=== PATIENT | male | born 1945 ===

== ENCOUNTER 2016-05-24 00:31 | Inpatient (IN) ==
--- NOTE | 2016-05-24 01:04 | Emergency Department Note ---
Arrival - Arrival ED Nursing Triage Note: pt to er 10 via ems coming from home with c/o from sister that he began to have unsteady gait and altered mental status tonight around 1999. Mode of Arrival: Stretcher Limitations: Altered Mental Status Source: Family - History of Present Illness Onset (ago): hour(s) (she presents 6 hours post onset of symptoms) Consistency: constant <Kamaljit Bowles - Last Filed: 05/24/16 01:01> <Michelle Navarro - Last Filed: 05/24/16 04:12> - Arrival Chief Complaint: Altered Mental Status Stated Complaint: altered mental status Time Seen by Provider: 05/24/16 00:58 - History of Present Illness HPI Narrative: This 70-year-old male presents with a history of not feeling himself this morning with a bout of nausea and vomiting after breakfast. The patient seemed to be there until this evening when he became more lethargic with an unsteady gait and transiently confused. Currently the patient is oriented to person, place, and time but is slow and methodical in answering questions. He denies headache, visual changes, focal deficits, chest pain, shortness breath, fever, or chills. Currently he is in no acute distress. ( Kamaljit Bowles) Allergies/Adverse Reactions: Allergies Allergy/AdvReac Type Severity Reaction Status Date / Time No Known Allergies Allergy Unverified 05/24/16 00:37 Review of System - Review of System 12 point system: reviewed and no additional remarkable complaints except as stated - Review of System Constitutional: Present: as per HPI Respiratory: Present: as per HPI Cardiovascular: Present: as per HPI Gastrointestinal: Present: as per HPI Neurological: Present: as per HPI <Kamaljit Bowles - Last Filed: 05/24/16 01:01> Medical,Surgical,& Family Hx - Social History Smoking Status: Never smoker Frequency of Alcohol Use: None Type of Drug Use: None <Kamaljit Bowles - Last Filed: 05/24/16 01:01> Exam <Kamaljit Bowles - Last Filed: 05/24/16 01:01> <Michelle Navarro - Last Filed: 05/24/16 04:12> Physical Examination: GENERAL: Well developed, well nourished male in no acute distress. HEENT: Normocephalic. No trauma. Moist mucous membranes. EOMI. PERRLA. ENT clear NECK: Supple. No adenopathy. CARDIAC: Regular. No murmurs. Heart rate 70 CHEST: Clear to auscultation. No respiratory distress. O2 saturation a percent ABDOMEN: Soft. Nontender. Active bowel sounds. EXTREMITIES: No trauma. Normal ROM. No pedal edema. SKIN: No diaphoresis. No rash. NEURO: Alert. Oriented 3 but lethargic. Motor, sensory, vibratory intact. No focal deficits. (Kamaljit Bowles) Vital Signs: Vital Signs Temperature 98.5 F 05/24/16 00:32 Pulse Rate 70 05/24/16 00:32 Respiratory Rate 17 05/24/16 00:32 Blood Pressure 193/79 05/24/16 00:32 O2 Sat by Pulse Oximetry 100 05/24/16 00:32 (Kamaljit Bowles) (Michelle Navarro) Course <Kamaljit Bowles - Last Filed: 05/24/16 01:01> <Michelle Navarro - Last Filed: 05/24/16 04:12> Course Narrative: spoke with DR Regalado who agrees to admission. pt may have taken too many of his sleeping pills. not comfortable sending pt home as he is a fall risk. pt admits to taking only one sleeping pill (Michelle Navarro) Results - Labs CBC & BMP: 05/24/16 01:33 05/24/16 01:33 Lab Results: I have reviewed the patients labs - Diagnostic Findings Procedure: CT: report reviewed by me (chronic ischemic changes. no acute intracranial path) <Michelle Navarro - Last Filed: 05/24/16 04:12> Disposition <Kamaljit Bowles - Last Filed: 05/24/16 01:01> Case discussed with: patient, patient's family Time of Disposition: 04:08 <Michelle Navarro - Last Filed: 05/24/16 04:12> Clinical Impression: Altered mental status, Overdose Disposition: Still a Patient Condition: Stable
--- NOTE | 2016-05-24 01:29 | EKG Report ---
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
[2016-05-24 01:58] LABS: Basophils % 0.3 % (0.0-0.8); Eosinophils % 0.3 % (0.00-10.9); Hematocrit 35.8 VOL% (42.0-52.0); Hemoglobin 11.6 GM/DL (14.0-18.0); Immature Granulocytes % 0.4 %; Immature Granulocytes Absolute 0.03 #; Lymphocytes # 0.7 10*3/uL (1.4-4.0); Mean Corpuscular HGB Conc 32.4 GM/DL (32-36); Mean Corpuscular Hemoglobin 29 PG (27-34); Mean Platelet Volume 9.6 FL (9.6-12.0); Monocytes # 0.5 10*3/uL (0.11-0.8); Monocytes % 6.6 % (1.7-12.7); Neutrophils # 6.5 10*3/uL (1.4-7.4); Neutrophils % 83.4 % (38.7-73.9); Platelet Count 151 10*3/uL (130-400); Red Blood Count 4.07 10*6/uL (3.8-5.5); Red Cell Distribution Width 13.1 % (9.3-17.3); White Blood Count 7.8 10*3/uL (4.5-13.71)
[2016-05-24 02:08] LABS: PT Patient Result 10.6 SECS; Partial Thromboplastin Time 34.6 SECS (0-40)
[2016-05-24 02:19] LABS: Barbiturates Screen,Urine Negative (Negative); Benzodiazepines Screen,Urine Negative (Negative); Cannabinoid Screen,Urine Negative (Negative); Opiate Screen,Urine Negative (Negative); Phencyclidine Screen,Urine Negative (Negative)
[2016-05-24 02:20] LABS: Albumin 2.9 G/DL (3.4-5.0); Bilirubin,Total 0.5 MG/DL (0.2-1.0); Calcium 7.9 MG/DL (8.5-10.1); Free T4 (Free Thyroxine) 1.2 NG/DL (0.76-1.46); Osmolality,Calculated 295.3 MOS/KG (273-304); Potassium 4.3 MMOL/L (3.5-5.1); Thyroid Stimulating Hormone 3.41 uIU/ml (0.358-3.74)
[2016-05-24 02:21] LABS: Apearance,Urine CLEAR (Clear); Bilirubin,Urine Negative (Negative); Blood, Urine Negative (Negative); Glucose,Urine (UA) >=500 mg/dL (Negative); Ketones,Urine Negative (Negative); Mucus,Urine Occasional /LPF (Occasional); Nitrite,Urine Negative (Negative); Protein,Urine 30 MG/DL; RBC,Urine <1 /HPF (0-4); Urine Color Straw (Yellow); Urine Specific Gravity 1.013 (1.001-1.035); Urine Urobilinogen < 2.0 EU/DL (0.2-1.0); WBC,Urine <1 /HPF (0-6)
[2016-05-24 02:25] LABS: Amylase 14 U/L (25-115); Troponin I Only < 0.015 NG/ML (0.00-0.045)
[2016-05-24] MEDS ORDERED: SODIUM CHLORIDE 0.9% 1,000 ML IV STA (03:40)
--- NOTE | 2016-05-24 06:19 | Hospitalist History & Physical ---
Assessment and Plan (1) Acute metabolic encephalopathy Status: Acute Assessment and plan: The patient will be admitted to the hospital for observation slurred speech. We will request MRI scan to rule out new stroke. Anticipated length of stay 24 hours Current Visit: Yes (2) Altered mental status Status: Acute Current Visit: Yes Qualifiers: Altered mental status type: transient alteration of awareness Qualified Code(s): R40.4 - Transient alteration of awareness History of Present Illness Chief complaint: altered mental status History of present illness: Mr. Almaraz is a 70 year old male with history of previous stroke. The patient was at home in his usual state of health. His sister noted that he had slowed sensory perceptions and that his speech was slurred. She brought him to the emergency room. The patient states that he took a sleeping pill on the evening that the symptoms developed. The patient denies headache, fever, chills, shortness of breath, angina. The patient's altered mental status with mild to moderate, continuous, and is slowly improving. Home Medications Medication Instructions Recorded Confirmed Type Clopidogrel [Plavix] 75 mg PO DAILY 05/24/16 05/24/16 History Donepezil [Aricept] 10 mg PO BEDTIME 05/24/16 05/24/16 History Gabapentin Cap/Tab [Neurontin 100 mg PO DIRECTED 05/24/16 05/24/16 History Cap/Tab] Insulin Aspart [NovoLOG FlexPen] 7 unit SUBCUT TID W/MEALS 05/24/16 05/24/16 History Insulin Detemir [Levemir FlexPen] 50 unit SUBCUT BEDTIME 05/24/16 05/24/16 History Losartan [Cozaar] 50 mg PO DAILY 05/24/16 05/24/16 History Metoprolol Tartrate 100 mg PO BEDTIME 05/24/16 05/24/16 History Pantoprazole Tab [Protonix Tab] 40 mg PO DAILY 05/24/16 05/24/16 History Saxagliptin HCl [Onglyza] 2.5 mg PO DAILY 05/24/16 05/24/16 History Tamsulosin [Flomax] 0.4 mg PO DAILY 05/24/16 05/24/16 History Tolterodine LA [Detrol LA] 2 mg PO DAILY 05/24/16 05/24/16 History Allergies Allergy/AdvReac Type Severity Reaction Status Date / Time No Known Allergies Allergy Unverified 05/24/16 00:37 Medical,Surgical,& Family Hx - Medical History Cardio: History of: Hypertension Neurology: History of: Cerebrovascular Accident - Family History Family History: Reports;: Family Diabetes, Family Hypertension - Social History Smoking Status: Never smoker Frequency of Alcohol Use: None Type of Drug Use: None Marital Status: Lives With:: Sibling Functional capacity: independent ambulation 12 point system: reviewed and no additional remarkable complaints except as stated Exam - Constitutional Exam: Constitutional System: Minimal distress. No tremulousness. Head: Normocephalic, atraumatic. Ears, Nose and Throat System: No evidence of Otitis or Mastoiditis. No epistaxis or discharge Eyes System: Pupils equal, round, and reactive. Extraocular muscles intact. Neck: Supple, without adenopathy, No jugular venous distention. No thyromegaly , neck mass, or prior surgery apparent. Respiratory System: Chest clear to auscultation. Cardiovascular System: Heart with regular rate and rhythm. No murmur. GI System: Abdomen soft, nontender. Normoactive bowel sounds present. Musculoskeletal System: limbs with no pedal edema. Full distal pulses. Neurological System: No discernable sensory deficit. No aphasia. There is some slurring of speech Psychiatric System: Conversation is slow-paced but rational Results - Labs CBC & BMP: 05/24/16 01:33 05/24/16 01:33 Lab Results: I have reviewed the past 24 hour labs
[2016-05-24] MEDS ORDERED: DEXTROSE 50% 25 GM/50 ML VIAL IV PRN (06:39)
[2016-05-24] MEDS ORDERED: ONDANSETRON 4 MG/2 ML VIAL IV PRN (06:39)
[2016-05-24] MEDS ORDERED: GLUCAGON 1 MG VIAL IM PRN (06:39)
[2016-05-24 06:49] LABS: Basophils % 0.1 % (0.0-0.8); Eosinophils % 0.1 % (0.00-10.9); Hematocrit 33.1 VOL% (42.0-52.0); Hemoglobin 10.9 GM/DL (14.0-18.0); Immature Granulocytes % 0.3 %; Immature Granulocytes Absolute 0.02 #; Lymphocytes # 0.9 10*3/uL (1.4-4.0); Lymphocytes % 12.5 % (21.2-54.2); Mean Corpuscular HGB Conc 32.9 GM/DL (32-36); Mean Corpuscular Hemoglobin 29 PG (27-34); Mean Corpuscular Volume 87.1 FL (87-102); Mean Platelet Volume 9.9 FL (9.6-12.0); Monocytes # 0.6 10*3/uL (0.11-0.8); Monocytes % 8.2 % (1.7-12.7); Neutrophils # 5.8 10*3/uL (1.4-7.4); Neutrophils % 78.8 % (38.7-73.9); Platelet Count 146 10*3/uL (130-400); Red Cell Distribution Width 13.2 % (9.3-17.3); White Blood Count 7.4 10*3/uL (4.5-13.71)
[2016-05-24 07:07] LABS: Ammonia 70 UMOL/L (11-32)
[2016-05-24 07:23] LABS: Blood Urea Nitrogen 16 MG/DL (7-18); Calcium 7.4 MG/DL (8.5-10.1); Glucose 277 MG/DL (74-106); Magnesium 1.9 MG/DL (1.8-2.4); Potassium 4.5 MMOL/L (3.5-5.1); Sodium 143 MMOL/L (136-145); Troponin I Only < 0.015 NG/ML (0.00-0.045)
[2016-05-24] MEDS: ENOXAPARIN 40 MG/0.4 ML SYRINGE SUBCUT SCH (07:46)
[2016-05-24] MEDS: SODIUM CHLORIDE 0.9% 1,000 ML IV SCH ×2 (07:47→20:50)
--- NOTE | 2016-05-24 08:20 | CT Report ---
History is mental status changes Comparison 10/09/2008 Ventricles are normal in size No acute intracranial hemorrhage or mass effects seen Vascular calcifications present. Impression: No acute intracranial pathology seen PROCEDURE INTERPRETED AT [facility] DEPARTMENT OF RADIOLOGY Final Report Signed by: Dr. Iram Couch
[2016-05-24] MEDS ORDERED: PANTOPRAZOLE 40 MG TABLET PO SCH (09:00)
[2016-05-24] MEDS: LOSARTAN 50 MG TABLET PO SCH (09:52)
[2016-05-24] MEDS: PANTOPRAZOLE 40 MG TABLET PO SCH (09:52)
[2016-05-24] MEDS: CLOPIDOGREL 75 MG TABLET PO SCH (09:52)
[2016-05-24] MEDS: TAMSULOSIN 0.4 MG CAPSULE PO SCH (09:52)
[2016-05-24] MEDS: INSULIN LISPRO 100 UNIT/ML SUBCUT SCH ×7 (09:53→20:51)
--- NOTE | 2016-05-24 10:52 | XRay Report ---
History is altered mental status Comparison 05/30/2013 The heart is enlarged with a pacemaker present. There is mild chronic vascular congestion Lung markings unchanged without overt congestive failure or confluent infiltrates seen Impression: Cardiomegaly and chronic vascular congestion PROCEDURE INTERPRETED AT [facility] DEPARTMENT OF RADIOLOGY Final Report Signed by: Dr. Iram Couch
--- NOTE | 2016-05-24 17:14 | Hospitalist Progress Note ---
Assessment and Plan - Time spent with patient Time spent with patient: Greater than 30 minutes (1) Acute metabolic encephalopathy Status: Acute Assessment and plan: Ammonia level was elevated this may be causing encephalopathy. We'll obtain a right upper quadrant ultrasound and repeat ammonia levels are.. Current Visit: Yes (2) TIA (transient ischemic attack) Status: Acute Assessment and plan: Symptoms have completely resolved. Neurological examination is normal. Unable to obtain MRI due to pacemaker. Currently on Plavix will maintain this. We'll obtain a carotid ultrasound and echocardiogram. We'll also obtain a lipid panel. Unfortunately neurology is on bypass at this moment. Current Visit: Yes (3) CVA (cerebral vascular accident) Status: Acute Assessment and plan: We'll continue his home medications. Current Visit: Yes (4) Diabetes mellitus Status: Acute Assessment and plan: Appears to be uncontrolled we'll obtain hemoglobin A1c and continue her meds. Current Visit: Yes (5) Hypertension Status: Acute Assessment and plan: Continuing home medications. Current Visit: Yes (6) Dementia Status: Acute Assessment and plan: Continue medication. Current Visit: Yes Hospitalist: Subjective Interval history: Patient has no complaints, family at bedside reports he is at baseline. Exam - Constitutional Vitals: Period Temp Pulse Resp BP Sys/Dixon Pulse Ox Last 24 Hr 96.2 F-97.5 F 67-78 16-16 161-202/77-84 90-98 General appearance: no acute distress - Head Head exam: Present: normocephalic, atraumatic - Eye Eye exam: Present: EOMI Pupils: Present: HARPAL - ENT ENT exam: Present: normal exam - Neck Neck exam: Present: normal inspection - Respiratory Respiratory exam: Present: clear to auscultation bilaterally. Absent: rhonchi, wheezes - Cardiovascular Cardiovascular exam: Present: regular rate and rhythm. Absent: gallop, rubs, systolic murmur - GI/Abdominal GI/Abdominal exam: Present: normal bowel sounds, soft. Absent: distended, firm , guarding, tenderness, rebound - Extremities Exam Extremities exam: Present: normal inspection. Absent: calf tenderness, edema - Neurological Exam Neurological exam: Present: alert, oriented X3, CN II-XII intact Results - Labs CBC & BMP: 05/24/16 06:16 05/24/16 06:16 Lab Results: I have reviewed the past 24 hour labs
--- NOTE | 2016-05-24 18:42 | Ultrasound Report ---
History is TIA Grayscale, spectral Doppler, and color flow analysis performed and interpreted There is a mild to moderate amount of soft and partially calcified plaque in the proximal internal carotid arteries bilaterally Maximum systolic velocities are 164 the right and 117 on the left Peak systolic ratios are 1.8 on the right and 1.2 in the left There is antegrade flow in the left vertebral artery Right vertebral artery could not be visualized There is mild spectral broadening in the proximal right ICA NASCET criteria utilized Impression: 1. Findings weakly suggestive of a 50-79% diameter stenosis the proximal ICA on the right. Correlation with MRA is suggested 2. Less than 50% diameter stenosis the proximal left ICA 3. Right vertebral artery could not be visualized PROCEDURE INTERPRETED AT [facility] DEPARTMENT OF RADIOLOGY Final Report Signed by: Dr. Iram Couch
--- NOTE | 2016-05-24 18:47 | Ultrasound Report ---
History is elevated ammonia levels No gallstones seen however there is diffuse gallbladder wall thickening measuring up to 6 mm No biliary ductal dilatation seen The liver is 16.5 CM in length. Hepatic echotexture is normal No right renal hydronephrosis seen The pancreas and proximal IVC and aorta are obscured by bowel gas Impression: 1. Midline retroperitoneal structures are obscured 2. Diffuse nonspecific gallbladder wall thickening PROCEDURE INTERPRETED AT [facility] DEPARTMENT OF RADIOLOGY Final Report Signed by: Dr. Iram Couch
[2016-05-24] MEDS: METOPROLOL TARTRATE 100 MG TABLET PO SCH (20:50)
[2016-05-24] MEDS: INSULIN GLARGINE 100 UNIT/ML SUBCUT SCH (20:51)
[2016-05-25 05:49] LABS: Risk Ratio 2.63
[2016-05-25] MEDS: ENOXAPARIN 40 MG/0.4 ML SYRINGE SUBCUT SCH (06:06)
[2016-05-25] MEDS: SODIUM CHLORIDE 0.9% 1,000 ML IV SCH ×2 (09:26→17:22)
[2016-05-25] MEDS: LOSARTAN 50 MG TABLET PO SCH (09:27)
[2016-05-25] MEDS: INSULIN LISPRO 100 UNIT/ML SUBCUT SCH ×7 (09:27→21:19)
[2016-05-25] MEDS: PANTOPRAZOLE 40 MG TABLET PO SCH (09:28)
[2016-05-25] MEDS: CLOPIDOGREL 75 MG TABLET PO SCH (09:28)
[2016-05-25] MEDS: TAMSULOSIN 0.4 MG CAPSULE PO SCH (09:28)
[2016-05-25] MEDS: LACTULOSE 20 GM/30 ML UDCUP PO SCH ×4 (09:37→21:17)
--- NOTE | 2016-05-25 11:34 | Gastrointestinal Consult Note ---
Assessment and Plan - Time spent with patient Time spent with patient: Greater than 30 minutes (1) Altered mental status Status: Acute Current Visit: Yes Qualifiers: Qualified Code(s): R40.4 - Transient alteration of awareness (2) Other specified counseling Status: Acute Current Visit: Yes History of Present Illness History of present illness: Mr. Almaraz is a 70 year old male Home Medications Medication Instructions Recorded Confirmed Type Clopidogrel [Plavix] 75 mg PO DAILY 05/24/16 05/24/16 History Donepezil [Aricept] 10 mg PO BEDTIME 05/24/16 05/24/16 History Gabapentin Cap/Tab [Neurontin 100 mg PO DIRECTED 05/24/16 05/24/16 History Cap/Tab] Insulin Aspart [NovoLOG FlexPen] 7 unit SUBCUT TID W/MEALS 05/24/16 05/24/16 History Insulin Detemir [Levemir FlexPen] 50 unit SUBCUT BEDTIME 05/24/16 05/24/16 History Losartan [Cozaar] 50 mg PO DAILY 05/24/16 05/24/16 History Metoprolol Tartrate 100 mg PO BEDTIME 05/24/16 05/24/16 History Pantoprazole Tab [Protonix Tab] 40 mg PO DAILY 05/24/16 05/24/16 History Saxagliptin HCl [Onglyza] 2.5 mg PO DAILY 05/24/16 05/24/16 History Tamsulosin [Flomax] 0.4 mg PO DAILY 05/24/16 05/24/16 History Tolterodine LA [Detrol LA] 2 mg PO DAILY 05/24/16 05/24/16 History Allergies Allergy/AdvReac Type Severity Reaction Status Date / Time No Known Allergies Allergy Unverified 05/24/16 00:37 Medical,Surgical,& Family Hx - Medical History Cardio: History of: Hypertension, NM, Pacemaker Neurology: History of: Cerebrovascular Accident Endocrine: History of: Diabetes Mellitus (IDDM) - Surgical History Cardiac Surgeries: Sugical HX of: Cardiac Surgery (CABG) - Family History Family History: Reports;: Family Diabetes, Family Hypertension - Social History Smoking Status: Never smoker Frequency of Alcohol Use: None Type of Drug Use: None Exam - Constitutional Vitals: Period Temp Pulse Resp BP Sys/Dixon Pulse Ox Last 24 Hr 97.3 F-98.7 F 60-82 16-20 151-202/69-88 98-99 Results - Labs CBC & BMP: 05/24/16 06:16 05/24/16 06:16 Note Addendum: PLEASE NOTE -- automatic citation of patient information is unavoidable in this electronic note. I have made a reasonable effort to review the information cited , but it is not a part of my evaluation, impression, or recommendation unless specifically discussed in the dictated text that follows. As well, voice recognition software was used in the creation of this clinical note. Reasonable effort was made to identify and correct gross errors. Despite proofreading, errors in track surfacing machine operator may be present, including nonsense verbiage at times. If you encounter such an error, please contact me at for discussion and correction. -- Makenzie Chief complaint: altered mental status History of present illness: this is a new patient, a 70-year-old male, seen by consultation for evaluation of altered mental status. The patient is admitted to the hospitalist service with a primary diagnosis of same. He was admitted overnight with complaint of slurred speech and mental confusion noted by a family member and confirmed by the patient. The patient has a reported history of stroke in the past and there was initial intent to proceed with MRI but the patient has a pacer which, apparently, precluded this examination. Subsequently , the patient's symptoms resolved entirely. The patient's serum ammonia was checked and was found to be increasing. 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 He stopped drinking at that point and has been abstinent since. He never underwent any sort of treatment that he recalls. He is unaware of any prior history of viral hepatitis or other chronic liver disease. He notes that, over the past 2-3 months, his weight has fluctuated significantly, as much as 10 to 15 pounds. He also reports a history of coronary artery disease and has undergone bypass surgery, around 2006. He also recalls the pacer was implanted around 2008. He is comfortable at present, eating and drinking without difficulty. He is also having bowel movements. Patient denies fever, chills, night sweats, rigors, headache, dizziness, neck pain, visual changes, redness of the eyes, dysphagia, odynophagia, difficulty chewing, chest pain, shortness of breath, abdominal pain, nausea, vomiting, regurgitation, hematemesis, diarrhea, hematochezia, melena, proctalgia, constipation, change in bowel pattern generally, dysuria, skin changes, temperature regulation issues, flushing, easy bleeding/bruising, musculoskeletal pain, numbness/weakness in the extremities, yellowing of the eyes/skin, cutaneous eruptions, family history of gastrointestinal cancer and colon polyps, and other complaints in general. Review of systems: 12 point review of systems was negative except as documented above. Outpatient medications: insulin, metoprolol, Detrol, Aricept, gabapentin, protonic's, losartan, tamsulosin, Plavix, Saxagliptin Inpatient medications: Plavix, Lovenox, insulin, lactulose, Cozaar, Lopressor, Zofran, Protonix, Flomax, normal saline infusion Past Medical History: hypertension, cerebrovascular accident, coronary disease status post pacer placement Social history: negative tobacco. Negative alcohol Family history: diabetes, hypertension Physical examination: Vital Signs: Current vital signs reviewed and documented above. General Appearance: sitting on the bedside eating lunch. Comfortable. No apparent distress. Head: Normocephalic. Neck: Palpation of the neck revealed no abnormalities. Eyes: No scleral icterus. No scleral injection. No conjunctival pallor. Oral Cavity: Odor of breath was normal. No drooling was observed. Lips showed no abnormalities. Floor of the mouth showed no abnormalities. Pharynx: Oropharynx was normal. Lungs: Respiration rhythm and depth was normal. Cardiovascular: Heart rate and rhythm were normal. No murmurs were appreciated. Abdomen: abdomen was protuberant due to obesity but not distended. Abdominal palpation revealed no tenderness and no hepatosplenomegaly. Ascites was not discovered. Abdominal auscultation revealed positive bowel sounds. Musculoskeletal System: Musculoskeletal system was grossly normal. Neurological: level of consciousness was normal. Speech was normal. Skin: General appearance was normal. Color and pigmentation were normal. No skin lesions. Laboratory: white blood count 7.4, hemoglobin 10.9, hematocrit 33.1, platelets 146, INR 1.0, PT 10.6, glucose 315, sodium 143, potassium 4.5, chloride 111, CO2 21, BUN 16, creatinine 1.2, ALT 11, AST 12, total bilirubin 0.5, magnesium 1.9, alkaline phosphatase 134, ammonia 98, total protein 6.0, albumin 2.9, urine toxicology negative Radiology: right upper quadrant ultrasound reveals no evidence of pancreatic or biliary disease or liver disease Impressions: 1. Altered mental status -- the patient has little evidence of liver disease with normal liver associated enzymes, normal radiologic appearance, and apparently intact hepatic synthetic function. His reported history of heavy alcohol use with cirrhosis cannot be ignored, however in his report of rapid weight gain and loss is also concerning. Fortunately, his mental status is returned to baseline. The elevated serum ammonia is concerning though it is neither sensitive nor specific for underlying liver disease and can be seen in multiple other conditions including urinary tract infection, renal disease generally, myopathies, tissue ischemia generally, and as a side effect of medications. I recommend further evaluation against chronic liver disease as outlined below. I recommend aggressive control of diabetes, monitoring for evidence of acute and chronic kidney injury, and surveillance of liver associated enzymes while the patient remains in the hospital. If there is no hepatic related finding, some consideration may need to be given to liver biopsy in order to prove or disprove this patient's understanding that he has cirrhosis. 2. Other specified counseling: The patient was seen for greater than 30 minutes. The patient was counseled for greater than 50% of this time regarding differential diagnosis, likely diagnosis, diagnostic and therapeutic alternatives, risks/benefits/alternatives of medications and procedures, and plan of care generally. The patient expressed understanding and wishes to proceed. Recommendations: -- viral hepatitis screen -- Seroligic screen against autoimmune liver disease and chronic metabolic liver disease. -- aggressive volume and electrolyte control -- aggressive diabetes control -- monitor for evidence of acute and chronic kidney injury -- monitor liver associated enzymes while admitted -- consider percutaneous liver biopsy if concern for cirrhosis remains -- continue to pursue neurology consult and diagnostics against the possibility of transient ischemic attack -- thank you for this consultation. Dr. Jimenez will assume G.I. care for this patient tomorrow
[2016-05-25 11:39] LABS: Alanine Aminotransferase 11 U/L (16-61); Albumin 2.5 G/DL (3.4-5.0); Alkaline Phosphatase 116 U/L (45-117); Aspartate Amino Transferase 14 U/L (0-37); Bilirubin,Direct < 0.1 MG/DL (0.0-0.20); Bilirubin,Indirect 0.3 MG/DL (0.0-1.0); Bilirubin,Total < 0.39 MG/DL (0.2-1.0); Total Protein 5.2 G/DL (6.4-8.3)
--- NOTE | 2016-05-25 14:01 | Hospitalist Progress Note ---
Assessment and Plan - Time spent with patient Time spent with patient: Greater than 30 minutes (1) Acute metabolic encephalopathy Status: Acute Assessment and plan: Repeat ammonia levels continue to remain elevated. RUQ unremarkable. Consult GI. Current Visit: Yes (2) TIA (transient ischemic attack) Status: Acute Assessment and plan: Symptoms have completely resolved. Neurological examination is normal. Lipid panel with good LDL. Unable to obtain MRI due to pacemaker. Currently on Plavix will maintain this. Carotid reveals unilateral stenosis of 50-79% and echo unremarkable. Unfortunately neurology is on bypass at this moment. Current Visit: Yes (3) CVA (cerebral vascular accident) Status: Acute Assessment and plan: We'll continue his home medications. Current Visit: Yes (4) Diabetes mellitus Status: Acute Assessment and plan: Appears to be uncontrolled we'll obtain hemoglobin A1c and continue his meds. Current Visit: Yes (5) Hypertension Status: Acute Assessment and plan: Continuing home medications. Current Visit: Yes (6) Dementia Status: Acute Assessment and plan: Continue medication. Current Visit: Yes Hospitalist: Subjective Interval history: Patient has no complaints currently. No overnight events. Exam - Constitutional Vitals: Period Temp Pulse Resp BP Sys/Dixon Pulse Ox Last 24 Hr 97.3 F-98.7 F 60-82 16-20 151-197/69-88 98-99 General appearance: no acute distress - Head Head exam: Present: normocephalic, atraumatic - Eye Eye exam: Present: EOMI Pupils: Present: HARPAL - ENT ENT exam: Present: normal exam - Neck Neck exam: Present: normal inspection - Respiratory Respiratory exam: Present: clear to auscultation bilaterally. Absent: rhonchi, wheezes - Cardiovascular Cardiovascular exam: Present: regular rate and rhythm. Absent: gallop, rubs, systolic murmur - GI/Abdominal GI/Abdominal exam: Present: normal bowel sounds, soft. Absent: distended, firm , guarding, tenderness, rebound - Extremities Exam Extremities exam: Present: normal inspection. Absent: calf tenderness, edema Results - Labs CBC & BMP: 05/24/16 06:16 05/24/16 06:16 Lab Results: I have reviewed the past 24 hour labs
--- NOTE | 2016-05-25 14:32 | ECHO Report ---
Kathleen Almaraz Exam Date: 05/25/2016 10:29 Referring Physician: Technologist: Indigo Adam RDCS Age: 70 Ht (in): Wt (lb): Gender: M Exam Location: [facility] Echo Indications: Altered mental status, hx CVA, Essential (primary) hypertension, Acute metabolic encephalopathy BP: / HR: Rhythm: Sinus Technical Quality: IMPRESSIONS Normal left ventricular cavity size. Moderate left ventricular hypertrophy (1.5 cm). No segmental wall motion abnormalities. Estimated left ventricular ejection fraction 55%. Grade 1 diastolic dysfunction. Mild biatrial enlargement. Aortic valve sclerosis, without stenosis or insufficiency. Mild pulmonary hypertension. MEASUREMENTS (Male / Female) Normal Values 2D ECHO LV Diastolic Diameter PLAX 4.2 cm 4.2 - 5.9 / 3.9 - 5.3 cm LV Systolic Diameter PLAX 2.8 cm LV Fractional Shortening PLAX 33.1 % IVS Diastolic Thickness 2.1 cm 0.6 - 1.0 / 0.6 - 0.9 cm LVPW Diastolic Thickness 1.6 cm 0.6 - 1.0 / 0.6 - 0.9 cm RV Internal Dim ED PLAX 2.5 cm Aortic Root Diameter 3.5 cm LA Systolic Diameter LX 5.2 cm 3.0 - 4.0 / 2.7 - 3.8 cm DOPPLER TR Peak Velocity 290.0 cm/s TR Peak Gradient 33.6 mmHg FINDINGS Left Ventricle Normal left ventricular cavity size. Moderate left ventricular hypertrophy (1.5 cm). No segmental wall motion abnormalities. Estimated left ventricular ejection fraction 55%. Grade 1 diastolic dysfunction. Right Ventricle The right ventricle is normal in size and function. Right Atrium The right atrium is mildly enlarged. Left Atrium The left atrium is mildly enlarged. Mitral Valve Structurally normal mitral valve, with trace regurgitation. Aortic Valve Aortic valve sclerosis without stenosis or regurgitation. Tricuspid Valve Morphologically normal tricuspid valve. Mild tricuspid valve regurgitation. Estimated pulmonary artery systolic pressure 34 mmHg plus right atrial pressure. Pulmonic Valve Morphologically normal pulmonic valve without significant stenosis. There is no pulmonic regurgitation. Pericardium Normal pericardium without effusion. Aorta Normal ascending aorta dimension. Bandar Britt (Electronically Signed) Final Date: 25 May 2016 14:31
[2016-05-25 14:40] LABS: Ferritin 95.9 ng/ml (26-388)
[2016-05-25 15:39] LABS: Hepatitis A Ab IgM Quant 0.13 Index; Hepatitis A Ab IgM Result Negative (Negative); Hepatitis B Core IgM Result Negative (Negative); Hepatitis B Surface Ag Quant < 0.10 Index; Hepatitis B Surface Ag Result Negative (Negative); Hepatitis C Virus Ab Quant 0.05 Index; Hepatitis C Virus Ab Result Negative (Negative)
[2016-05-25] MEDS: METOPROLOL TARTRATE 100 MG TABLET PO SCH (21:17)
[2016-05-25] MEDS: INSULIN GLARGINE 100 UNIT/ML SUBCUT SCH (21:18)
[2016-05-26] MEDS: LACTULOSE 20 GM/30 ML UDCUP PO SCH ×6 (02:25→21:17)
[2016-05-26] MEDS: SODIUM CHLORIDE 0.9% 1,000 ML IV SCH ×3 (02:26→18:42)
[2016-05-26 05:52] LABS: Basophils % 0.1 % (0.0-0.8); Eosinophils % 0.4 % (0.00-10.9); Hematocrit 33.4 VOL% (42.0-52.0); Immature Granulocytes % 0.4 %; Immature Granulocytes Absolute 0.03 #; Lymphocytes # 0.9 10*3/uL (1.4-4.0); Lymphocytes % 12.8 % (21.2-54.2); Mean Corpuscular HGB Conc 32.9 GM/DL (32-36); Mean Corpuscular Hemoglobin 29 PG (27-34); Mean Corpuscular Volume 86.5 FL (87-102); Mean Platelet Volume 9.8 FL (9.6-12.0); Monocytes # 0.8 10*3/uL (0.11-0.8); Monocytes % 10.5 % (1.7-12.7); Neutrophils # 5.5 10*3/uL (1.4-7.4); Neutrophils % 75.8 % (38.7-73.9); Platelet Count 162 10*3/uL (130-400); Red Blood Count 3.86 10*6/uL (3.8-5.5); Red Cell Distribution Width 13.1 % (9.3-17.3); White Blood Count 7.3 10*3/uL (4.5-13.71)
[2016-05-26 05:59] LABS: PT Patient Result 10.5 SECS; Partial Thromboplastin Time 32.7 SECS (0-40)
[2016-05-26 06:13] LABS: Potassium 3.7 MMOL/L (3.5-5.1)
[2016-05-26 06:15] LABS: Calcium 8.1 MG/DL (8.5-10.1)
[2016-05-26 06:16] LABS: Osmolality,Calculated 289.3 MOS/KG (273-304)
[2016-05-26] MEDS: ENOXAPARIN 40 MG/0.4 ML SYRINGE SUBCUT SCH (06:17)
[2016-05-26 06:26] LABS: Albumin 2.7 G/DL (3.4-5.0); Bilirubin,Direct 0.1 MG/DL (0.0-0.20); Bilirubin,Indirect 0.3 MG/DL (0.0-1.0); Bilirubin,Total 0.4 MG/DL (0.2-1.0); Total Protein 5.5 G/DL (6.4-8.3)
[2016-05-26] MEDS: INSULIN LISPRO 100 UNIT/ML SUBCUT SCH ×7 (08:42→21:15)
[2016-05-26] MEDS: LOSARTAN 50 MG TABLET PO SCH (08:45)
[2016-05-26] MEDS: TAMSULOSIN 0.4 MG CAPSULE PO SCH (08:45)
[2016-05-26] MEDS: PANTOPRAZOLE 40 MG TABLET PO SCH (08:45)
[2016-05-26] MEDS: CLOPIDOGREL 75 MG TABLET PO SCH (08:45)
[2016-05-26 08:55] LABS: Albumin (SPE) 2.9 G/DL (3.2-5.3); Albumin (SPE) Rel % 55.5 %; Alpha 1 (SPE) 0.3 G/DL (0.1-0.4); Alpha 1 (SPE) Rel % 5.2 %; Alpha 2 (SPE) 0.7 G/DL (0.4-1.0); Alpha 2 (SPE) Rel % 13.4 %; Beta (SPE) 0.6 G/DL (0.5-1.1); Beta (SPE) Rel % 12.7 %; Gamma (SPE) 0.7 G/DL (0.7-1.7); Gamma (SPE) Rel % 13.2 %; Total Protein (Chem) 5.2 G/DL (6.4-8.2)
--- NOTE | 2016-05-26 10:52 | Gastrointestinal Progress Note ---
Assessment and Plan (1) Altered mental status Status: Acute Assessment and plan: 05/26-Ammonia level down from admission at 56. Mental status improving. Denies abd pain. Tolerating diet. Plan and addendum to follow by Dr whitehead. Current Visit: Yes Qualifiers: Altered mental status type: transient alteration of awareness Qualified Code(s): R40.4 - Transient alteration of awareness Gastroenterology - PN: Subj Interval history: CC: Altered mental status Pt is awake and alert, family at side. States he is feeling better today. He appears to be back at his baseline mental status per family. He denies any abdominal pain. Denies any nausea or vomiting. Abdomen is soft, distended, nontender. He is having bowel movements at present time with last one last night. ROS: Denies SOB or chest pain Exam (Progress Note) - Constitutional Vitals: Period Temp Pulse Resp BP Sys/Dixon Pulse Ox Last 24 Hr 96.7 F-98.9 F 59-70 16-20 93-191/58-81 96-100 General appearance: normal weight, no acute distress - Head Head exam: Present: normal inspection, normocephalic - Eye Eye exam: Present: other (lids and conjunctiva unremarkable). Absent: scleral icterus - ENT ENT exam: Present: normal exam, normal oropharynx - Neck Neck exam: Present: normal inspection - Respiratory Respiratory exam: Present: clear to auscultation bilaterally. Absent: rales, rhonchi, wheezes - Cardiovascular Cardiovascular exam: Present: regular rate and rhythm. Absent: diastolic murmur , JVD, systolic murmur - GI/Abdominal GI/Abdominal exam: Present: normal bowel sounds, soft. Absent: ascites, distended, mass, organomegaly, tenderness - Extremities Exam Extremities exam: Present: normal inspection, full ROM - Back Exam Back exam: Present: normal inspection - Neurological Exam Neurological exam: Present: alert, oriented X3 - Psychiatric Psychiatric exam: Present: normal affect, normal mood - Skin Skin exam: Present: normal color, warm, dry Results - Labs CBC & BMP: 05/26/16 03:57 05/26/16 03:57 Lab Results: I have reviewed the past 24 hour labs - Diagnostic Findings Procedure: Ultrasound: report reviewed by me
--- NOTE | 2016-05-26 12:46 | Quality Management ---
To meet the Get With The Guidelines- Stroke requirements, This patient will require an evaluation/consultation from physical and/or occupational and/or speech therapy prior to discharge. If rehabilitation services are not indicated for this patient, please provide rationale within a progress note and/or discharge summary. Thank you, Hermelinda Manuel RN Clinical Casing Builder W [phone] [facility]
--- NOTE | 2016-05-26 12:48 | Quality Management ---
To meet the Get With The Guidelines- Stroke requirements, If you do not choose to evaluate this patient's LDL prior to discharge, this patient will require a statin at discharge or a contraindication. To complete this task, you will need to order the medication OR provide a contraindication utilizing the Order Management screen. OR This patient was on a statin medication prior to arrival and has not had an LDL assessed during this admission. To meet the requirement you will need to continue a statin at discharge or provide a contraindication. To complete this task, you will need to order the medication OR provide a contraindication utilizing the Order Management screen. DO NOT ORDER OR PROVIDE CONTRAINDICATIONS WITHIN THIS QUERY. THIS IS A MEANINGFUL USE REQUIREMENT! Thank you, Hermelinda Manuel RN Clinical Director Of Digital Platforms W [phone] [facility]
--- NOTE | 2016-05-26 14:17 | Hospitalist Progress Note ---
Assessment and Plan - Time spent with patient Time spent with patient: Greater than 30 minutes (1) Acute metabolic encephalopathy Status: Acute Assessment and plan: Repeat ammonia levels have improved with initiation of lactulose. RUQ unremarkable. GI has been consulted. Current Visit: Yes (2) TIA (transient ischemic attack) Status: Acute Assessment and plan: Symptoms have completely resolved. Neurological examination is normal. Lipid panel with good LDL. Unable to obtain MRI due to pacemaker. Currently on Plavix will maintain this. Carotid reveals unilateral stenosis of 50-79% and echo unremarkable. Awaiting further recommendations from neurology. Current Visit: Yes (3) CVA (cerebral vascular accident) Status: Acute Assessment and plan: We'll continue his home medications. Current Visit: Yes (4) Diabetes mellitus Status: Acute Assessment and plan: Appears to be uncontrolled we'll obtain hemoglobin A1c and continue his meds. Current Visit: Yes (5) Hypertension Status: Acute Assessment and plan: Continuing home medications. Current Visit: Yes (6) Dementia Status: Acute Assessment and plan: Continue medication. Current Visit: Yes Hospitalist: Subjective Interval history: Yesterday lactulose was initiated. Patient has had no recurrence of confusion or slurred speech since admission. Exam - Constitutional Vitals: Period Temp Pulse Resp BP Sys/Dixon Pulse Ox Last 24 Hr 96.7 F-98.9 F 59-74 16-20 93-189/58-81 96-100 General appearance: no acute distress - Head Head exam: Present: normocephalic, atraumatic - Eye Eye exam: Present: EOMI Pupils: Present: HARPAL - ENT ENT exam: Present: normal exam - Neck Neck exam: Present: normal inspection - Respiratory Respiratory exam: Present: clear to auscultation bilaterally. Absent: rhonchi, wheezes - Cardiovascular Cardiovascular exam: Present: regular rate and rhythm. Absent: gallop, rubs, systolic murmur - GI/Abdominal GI/Abdominal exam: Present: normal bowel sounds, soft. Absent: distended, firm , guarding, tenderness, rebound - Extremities Exam Extremities exam: Present: normal inspection. Absent: calf tenderness, edema Results - Labs CBC & BMP: 05/26/16 03:57 05/26/16 03:57 Lab Results: I have reviewed the past 24 hour labs
--- NOTE | 2016-05-26 15:56 | Neurology Consult Note ---
History of Present Illness History of present illness: Mr. Almaraz is a 70 year old male with history of diabetes, hypertension, diabetic neuropathy, previous stroke with residual questionable left-sided weakness. The patient was at home in his usual state of health. His sister noted that he had slowed sensory perceptions and that his speech was slurred. She brought him to the emergency room. The patient states that he took a sleeping pill on the evening that the symptoms developed. The patient denies headache, fever, chills, shortness of breath, angina. His mental status is back to normal. He is able to get up and walk. Family reported that he is doing much better. CT of the head revealed no acute abnormalities. Carotid ultrasound revealed 50-77% right ICA stenosis. His serum ammonia level was high at 98 which is coming down slowly. Home Medications Medication Instructions Recorded Confirmed Type Clopidogrel [Plavix] 75 mg PO DAILY 05/24/16 05/24/16 History Donepezil [Aricept] 10 mg PO BEDTIME 05/24/16 05/24/16 History Gabapentin Cap/Tab [Neurontin 100 mg PO DIRECTED 05/24/16 05/24/16 History Cap/Tab] Insulin Aspart [NovoLOG FlexPen] 7 unit SUBCUT TID W/MEALS 05/24/16 05/24/16 History Insulin Detemir [Levemir FlexPen] 50 unit SUBCUT BEDTIME 05/24/16 05/24/16 History Losartan [Cozaar] 50 mg PO DAILY 05/24/16 05/24/16 History Metoprolol Tartrate 100 mg PO BEDTIME 05/24/16 05/24/16 History Pantoprazole Tab [Protonix Tab] 40 mg PO DAILY 05/24/16 05/24/16 History Saxagliptin HCl [Onglyza] 2.5 mg PO DAILY 05/24/16 05/24/16 History Tamsulosin [Flomax] 0.4 mg PO DAILY 05/24/16 05/24/16 History Tolterodine LA [Detrol LA] 2 mg PO DAILY 05/24/16 05/24/16 History Allergies Allergy/AdvReac Type Severity Reaction Status Date / Time No Known Allergies Allergy Unverified 05/24/16 00:37 12 point system: reviewed and no additional remarkable complaints except as stated Medical,Surgical,& Family Hx - Medical History Cardio: History of: Hypertension, MD, Pacemaker Neurology: History of: Cerebrovascular Accident Endocrine: History of: Diabetes Mellitus (IDDM) - Surgical History Cardiac Surgeries: Sugical HX of: Cardiac Surgery (CABG) - Family History Family History: Reports;: Family Diabetes, Family Hypertension - Social History Smoking Status: Never smoker Frequency of Alcohol Use: None Type of Drug Use: None Exam - Constitutional Vitals: Period Temp Pulse Resp BP Sys/Dixon Pulse Ox Last 24 Hr 96.7 F-98.9 F 59-74 16-20 93-189/58-81 96-100 Exam: GENERAL: Patient is in no acute distress. NECK: Neck is supple. There is no JVD. No carotid bruits present. No thyroid masses. CVS: First and second heart sounds are normal. There is no S3 present. Regular rate and rhythm. RESPIRATORY: Lungs are clear to auscultation without any rales or rhonchi. ABDOMEN: Soft and non-tender. Bowel sounds are present. There is no hepatosplenomegaly. EXT: There is no palpable edema. Peripheral pulses are present. Skin: No rashes Central Nervous system: General: Alert, awake and Oriented x 3 Speech: Fluent Comprehension: Intact and normal Facial expressions: Normal Cranial Nerves: CN1/Olfactory: Normal CN II/ Optic: Normal, Visual Horan unreliable CN III, and : HARPAL & EOMI CN V: Normal & intact CN VII: face is symmetric CNVIII: Normal CN XI/X/XI/XII: Intact and Normal Motor: Bulk and Tone is normal. Strength in the right 5/5 Strength in the left 4/5 Sensory: Decreased for all the modalities of PP, LT and temp sense in the glove and stocking distribution Reflexes: 1+ and symmetrical Cerebellar function: Normal finger to nose and heel to siegel testing. Gait: Broad-based gait Results - Labs CBC & BMP: 05/26/16 03:57 05/26/16 03:57 Assessment and Plan (1) Carotid artery stenosis Status: Acute Assessment and plan: Recommend CT angiogram carotid arteries Current Visit: Yes (2) Altered mental status Status: Acute Assessment and plan: This is likely due to metabolic encephalopathy. No evidence of a new stroke. Patient mental status is back to the baseline. We will watch it closely. Current Visit: Yes Qualifiers: Altered mental status type: transient alteration of awareness Qualified Code(s): R40.4 - Transient alteration of awareness
--- NOTE | 2016-05-26 17:09 | CT Report ---
Exam:CT angio neck Date: 05/26/2016 3:59 PM Comparison: Carotid ultrasound 05/24/16 Indication: Carotid stenosis Technique: Axial CT images were obtained from the thoracic aortic arch to the skull base with 80 cc of contrast Omnipaque 350 with sagittal axial and coronal imaging reconstructions from axial data. Additional 3-D vascular maximum intensity reproduction images were created and submitted for review. Total DLP: 175.6 Findings: Atherosclerotic plaque is noted at the aortic arch and proximal great vessels which are otherwise widely patent proximally. 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 Minimal atherosclerotic disease is noted at the bilateral common carotid arteries and at the carotid bifurcations bilaterally. The right carotid: The internal and external carotid arteries are patent. Primarily calcified atherosclerotic plaque at the bulb and proximal internal carotid artery causing mild (30-40%) luminal stenosis. The distal right internal carotid measures 5.0 mm. Incidental moderate stenosis is noted at the proximal external carotid. The left carotid: The internal and external carotid arteries are patent without stenosis. Prominent calcified atherosclerotic plaque at the bulb and proximal internal carotid artery are noted causing mild (15-25%) luminal stenosis. The distal left internal carotid measures 4.9 mm. Non-CT Angiogram findings: No abnormal enhancing lesions are noted within the neck. There is no adenopathy. Incidentally imaged intracranial contents appear grossly unremarkable. Thyroid gland is within normal limits. Somewhat prominent mediastinal fat deposition is noted which is indeterminate. Lungs appear grossly clear bilaterally. There are multilevel degenerative changes within the cervical spine, which are primarily mild including facet arthropathy at C5-C6 and mild disc space loss at C6-C7. Prevertebral soft tissues appear normal. Impression: Calcified atherosclerotic plaque at the carotid bulb and internal carotid arteries bilaterally with essentially mild luminal stenosis stenosis within both internal carotid arteries as detailed above. Direct NASCET criteria was utilized. PROCEDURE INTERPRETED AT [facility] DEPARTMENT OF RADIOLOGY Final Report Signed by: Rajesh Castillo
[2016-05-26] MEDS: METOPROLOL TARTRATE 100 MG TABLET PO SCH (21:14)
[2016-05-26] MEDS: INSULIN GLARGINE 100 UNIT/ML SUBCUT SCH (21:15)
[2016-05-27] MEDS: LACTULOSE 20 GM/30 ML UDCUP PO SCH ×6 (01:23→21:21)
[2016-05-27 04:43] LABS: Basophils % 0.3 % (0.0-0.8); Eosinophils % 0.4 % (0.00-10.9); Hematocrit 34.1 VOL% (42.0-52.0); Hemoglobin 11.3 GM/DL (14.0-18.0); Immature Granulocytes % 0.4 %; Immature Granulocytes Absolute 0.03 #; Lymphocytes # 1.1 10*3/uL (1.4-4.0); Lymphocytes % 15.4 % (21.2-54.2); Mean Corpuscular HGB Conc 33.1 GM/DL (32-36); Mean Corpuscular Hemoglobin 29 PG (27-34); Mean Corpuscular Volume 87.4 FL (87-102); Mean Platelet Volume 10.1 FL (9.6-12.0); Monocytes # 0.7 10*3/uL (0.11-0.8); Monocytes % 10.4 % (1.7-12.7); Neutrophils % 73.1 % (38.7-73.9); Platelet Count 172 10*3/uL (130-400); Red Cell Distribution Width 13.4 % (9.3-17.3); White Blood Count 6.9 10*3/uL (4.5-13.71)
[2016-05-27] MEDS: SODIUM CHLORIDE 0.9% 1,000 ML IV SCH ×2 (04:53→16:12)
[2016-05-27 05:27] LABS: Calcium 7.8 MG/DL (8.5-10.1); Osmolality,Calculated 288.4 MOS/KG (273-304); Potassium 3.9 MMOL/L (3.5-5.1)
[2016-05-27] MEDS: ENOXAPARIN 40 MG/0.4 ML SYRINGE SUBCUT SCH (06:08)
[2016-05-27] MEDS: INSULIN LISPRO 100 UNIT/ML SUBCUT SCH ×7 (09:19→21:20)
[2016-05-27] MEDS: CLOPIDOGREL 75 MG TABLET PO SCH (09:22)
[2016-05-27] MEDS: LOSARTAN 50 MG TABLET PO SCH (09:22)
[2016-05-27] MEDS: PANTOPRAZOLE 40 MG TABLET PO SCH (09:22)
[2016-05-27] MEDS: TAMSULOSIN 0.4 MG CAPSULE PO SCH (09:22)
--- NOTE | 2016-05-27 11:13 | Gastrointestinal Progress Note ---
Assessment and Plan (1) Altered mental status Status: Acute Assessment and plan: 05/27-Mental status improved. Having continued bowel movements 1-2 daily on Lacutulose. Plan and addendum to follow by Dr Jimenez. 05/26-Ammonia level down from admission at 56. Mental status improving. Denies abd pain. Tolerating diet. Plan and addendum to follow by Dr jimenez. Current Visit: Yes Qualifiers: Altered mental status type: transient alteration of awareness Qualified Code(s): R40.4 - Transient alteration of awareness Gastroenterology - PN: Subj Interval history: CC: Altered mental status Pt is more awake, alert today. He his having some mild abdominal cramping however states this occurs with his lactulose at times. He denies any nausea or vomiting. Tolerating his diet well. Abdomen is soft, distended. Hgb 11. ROS: Denies SOB or chest pain Exam (Progress Note) - Constitutional Vitals: Period Temp Pulse Resp BP Sys/Dixon Pulse Ox Last 24 Hr 97.7 F-99.7 F 60-74 17-20 145-156/61-71 96-99 - Other Additional findings: General appearance: normal weight, no acute distress - Head Head exam: Present: normal inspection, normocephalic - Eye Eye exam: Present: other (lids and conjunctiva unremarkable). Absent: scleral icterus - ENT ENT exam: Present: normal exam, normal oropharynx - Neck Neck exam: Present: normal inspection - Respiratory Respiratory exam: Present: clear to auscultation bilaterally. Absent: rales, rhonchi, wheezes - Cardiovascular Cardiovascular exam: Present: regular rate and rhythm. Absent: diastolic murmur , JVD, systolic murmur - GI/Abdominal GI/Abdominal exam: Present: normal bowel sounds, soft. Absent: ascites, distended, mass, organomegaly, tenderness - Extremities Exam Extremities exam: Present: normal inspection, full ROM - Back Exam Back exam: Present: normal inspection - Neurological Exam Neurological exam: Present: alert, oriented X3 - Psychiatric Psychiatric exam: Present: normal affect, normal mood - Skin Skin exam: Present: normal color, warm, dry Results - Labs CBC & BMP: 05/27/16 02:55 05/27/16 02:55 Lab Results: I have reviewed the past 24 hour labs
--- NOTE | 2016-05-27 15:11 | Hospitalist Progress Note ---
Assessment and Plan - Time spent with patient Time spent with patient: Greater than 30 minutes (1) Acute metabolic encephalopathy Status: Acute Assessment and plan: Repeat ammonia levels have improved with initiation of lactulose. RUQ unremarkable. May require liver biopsy, defer to GI if this needs to be done while hospitalized or after discharge. Current Visit: Yes (2) TIA (transient ischemic attack) Status: Acute Assessment and plan: Symptoms have completely resolved. Neurological examination is normal. Lipid panel with good LDL. Unable to obtain MRI due to pacemaker. Currently on Plavix will maintain this. Carotid reveals unilateral stenosis of 50-79% and echo unremarkable. Appreciate Neurologys assistance. Current Visit: Yes (3) CVA (cerebral vascular accident) Status: Acute Assessment and plan: We'll continue his home medications. Current Visit: Yes (4) Diabetes mellitus Status: Acute Assessment and plan: Appears to be uncontrolled we'll obtain hemoglobin A1c and continue his meds. Current Visit: Yes (5) Hypertension Status: Acute Assessment and plan: Continuing home medications. Current Visit: Yes (6) Dementia Status: Acute Assessment and plan: Continue medication. Current Visit: Yes Hospitalist: Subjective Interval history: No complaints, no overnight events. Exam - Constitutional General appearance: no acute distress - Head Head exam: Present: normocephalic, atraumatic - Eye Eye exam: Present: EOMI Pupils: Present: HARPAL - ENT ENT exam: Present: normal exam - Neck Neck exam: Present: normal inspection - Respiratory Respiratory exam: Present: clear to auscultation bilaterally. Absent: rhonchi, wheezes - Cardiovascular Cardiovascular exam: Present: regular rate and rhythm. Absent: gallop, rubs, systolic murmur - GI/Abdominal GI/Abdominal exam: Present: normal bowel sounds, soft. Absent: distended, firm , guarding, tenderness, rebound - Extremities Exam Extremities exam: Present: normal inspection. Absent: calf tenderness, edema Results - Labs CBC & BMP: 05/27/16 02:55 05/27/16 02:55 Lab Results: I have reviewed the past 24 hour labs
[2016-05-27 15:22] LABS: Mitochondrial Antibody (M2) 0.7 U
[2016-05-27] MEDS: INSULIN GLARGINE 100 UNIT/ML SUBCUT SCH (21:20)
[2016-05-27] MEDS: METOPROLOL TARTRATE 100 MG TABLET PO SCH (21:21)
[2016-05-28] MEDS: SODIUM CHLORIDE 0.9% 1,000 ML IV SCH ×2 (01:51→12:38)
[2016-05-28] MEDS: LACTULOSE 20 GM/30 ML UDCUP PO SCH ×3 (02:00→09:42)
[2016-05-28 05:29] LABS: Basophils % 0.3 % (0.0-0.8); Eosinophils % 0.2 % (0.00-10.9); Hematocrit 33.6 VOL% (42.0-52.0); Hemoglobin 10.9 GM/DL (14.0-18.0); Immature Granulocytes % 0.6 %; Immature Granulocytes Absolute 0.05 #; Lymphocytes # 1.1 10*3/uL (1.4-4.0); Lymphocytes % 11.9 % (21.2-54.2); Mean Corpuscular HGB Conc 32.4 GM/DL (32-36); Mean Corpuscular Hemoglobin 29 PG (27-34); Mean Corpuscular Volume 89.1 FL (87-102); Mean Platelet Volume 9.9 FL (9.6-12.0); Monocytes # 0.9 10*3/uL (0.11-0.8); Monocytes % 10.3 % (1.7-12.7); Neutrophils # 6.9 10*3/uL (1.4-7.4); Neutrophils % 76.7 % (38.7-73.9); Platelet Count 168 10*3/uL (130-400); Red Blood Count 3.77 10*6/uL (3.8-5.5); Red Cell Distribution Width 13.4 % (9.3-17.3)
[2016-05-28 05:56] LABS: Calcium 7.8 MG/DL (8.5-10.1); Osmolality,Calculated 289.4 MOS/KG (273-304); Potassium 4.1 MMOL/L (3.5-5.1)
--- NOTE | 2016-05-28 07:37 | Physician Query Form ---
CLICK EDIT DOCUMENT TO SELECT QUERY ANSWER --> OK --> SIGN Jeanne Mancilla RN, CCDS Certified Clinical Zipper Setter Lockstitch W) [phone] (f) [phone] [email or web address]: Make your selection(s) from the choices in EACH section by typing an "x" and enter comments in the comment section. Please use your independent medical judgment in providing your response. This request does not imply that any particular answer is desired or expected. CLINICAL INDICATORS: (Providers should not edit this section) The medical record indicates that the patient was admitted with AMS, Question OD "took a sleeping pill on the evening that the symptoms developed", CVA is mentioned ---> per Neuro "No evidence of a new stroke", TIA is mentioned, Carotid stenosis is mentioned, Ammonia of 26 on admission that increased to 98 on the 15th and "Patient has improved on lactulose therapy". As the attending MD can you please clarify the most likely cause of the AMS? Based on the above, could you clarify the appropriate diagnosis, if significant , that supports the above abnormalities and additional evaluation, monitoring, and/or treatment rendered: ( x) Hepatic Encephalopathy ( ) POA ( ) Not POA ( ) Accidental overdose of sleeping pills ( ) CVA confirmed ( ) CVA ruled out ( ) TIA ( ) Carotid Stenosis ( ) Other, please specify: ( ) Clinically unable to determine COMMENTS: Use of terms such as suspected, likely, or probable (associated with a specific diagnosis that is being evaluated, monitored, or treated as if it exists) are acceptable and can be restated in the discharge summary if not ruled out. MTDD
[2016-05-28] MEDS: TAMSULOSIN 0.4 MG CAPSULE PO SCH (09:39)
[2016-05-28] MEDS: INSULIN LISPRO 100 UNIT/ML SUBCUT SCH ×4 (09:39→13:30)
[2016-05-28] MEDS: CLOPIDOGREL 75 MG TABLET PO SCH (09:39)
[2016-05-28] MEDS: PANTOPRAZOLE 40 MG TABLET PO SCH (09:40)
--- NOTE | 2016-05-28 09:45 | Gastrointestinal Progress Note ---
Assessment and Plan (1) Altered mental status Status: Acute Assessment and plan: 05/28-Alert, oriented x 3. For liver biopsy today. 2 BMs this morning. Ammonia down to 49 on yesterday. Plan and addendum to follow by Dr Jimenez. 05/27-Mental status improved. Having continued bowel movements 1-2 daily on Lacutulose. Plan and addendum to follow by Dr Jimenez. 05/26-Ammonia level down from admission at 56. Mental status improving. Denies abd pain. Tolerating diet. Plan and addendum to follow by Dr jimenez. Current Visit: Yes Qualifiers: Altered mental status type: transient alteration of awareness Qualified Code(s): R40.4 - Transient alteration of awareness Gastroenterology - PN: Subj Interval history: CC: Altered mental status Pt is awake, sitting up in chair. States that he is feeling much better. Denies any pain, nausea or vomiting. He is scheduled for liver biopsy today. He has a good appetite and is tolerating his diet well. Last ammonia check on yesterday was down to 49. Abdomen is soft, nontender. ROS: Denies SOB or chest pain Exam (Progress Note) - Constitutional Vitals: Period Temp Pulse Resp BP Sys/Dixon Pulse Ox Last 24 Hr 97.3 F-98.4 F 62-71 16-22 136-169/63-72 97-99 - Other Additional findings: General appearance: normal weight, no acute distress - Head Head exam: Present: normal inspection, normocephalic - Eye Eye exam: Present: other (lids and conjunctiva unremarkable). Absent: scleral icterus - ENT ENT exam: Present: normal exam, normal oropharynx - Neck Neck exam: Present: normal inspection - Respiratory Respiratory exam: Present: clear to auscultation bilaterally. Absent: rales, rhonchi, wheezes - Cardiovascular Cardiovascular exam: Present: regular rate and rhythm. Absent: diastolic murmur , JVD, systolic murmur - GI/Abdominal GI/Abdominal exam: Present: normal bowel sounds, soft. Absent: ascites, distended, mass, organomegaly, tenderness - Extremities Exam Extremities exam: Present: normal inspection, full ROM - Back Exam Back exam: Present: normal inspection - Neurological Exam Neurological exam: Present: alert, oriented X3 - Psychiatric Psychiatric exam: Present: normal affect, normal mood - Skin Skin exam: Present: normal color, warm, dry Results - Labs CBC & BMP: 05/28/16 04:42 05/28/16 04:42 Lab Results: I have reviewed the past 24 hour labs
[2016-05-28] MEDS: LOSARTAN 50 MG TABLET PO SCH (10:17)
--- NOTE | 2016-05-28 12:33 | Hospitalist Progress Note ---
Assessment and Plan - Time spent with patient Time spent with patient: Greater than 30 minutes (1) Acute metabolic encephalopathy Status: Acute Assessment and plan: Repeat ammonia levels have improved with initiation of lactulose. RUQ unremarkable. Biopsy today. Current Visit: Yes (2) TIA (transient ischemic attack) Status: Acute Assessment and plan: Symptoms have completely resolved. Neurological examination is normal. Lipid panel with good LDL. Unable to obtain MRI due to pacemaker. Currently on Plavix will maintain this. Carotid reveals unilateral stenosis of 50-79% and echo unremarkable. Appreciate Neurologys assistance. Current Visit: Yes (3) CVA (cerebral vascular accident) Status: Acute Assessment and plan: We'll continue his home medications. Current Visit: Yes (4) Diabetes mellitus Status: Acute Assessment and plan: Appears to be uncontrolled we'll obtain hemoglobin A1c and continue his meds. Current Visit: Yes (5) Hypertension Status: Acute Assessment and plan: Continuing home medications. Current Visit: Yes (6) Dementia Status: Acute Assessment and plan: Continue medication. Current Visit: Yes Hospitalist: Subjective Interval history: No complaints, no overnight events. Exam - Constitutional Vitals: Period Temp Pulse Resp BP Sys/Dixon Pulse Ox Last 24 Hr 97.3 F-98.4 F 62-71 16-22 136-180/63-80 97-99 General appearance: no acute distress - Head Head exam: Present: normocephalic, atraumatic - Eye Eye exam: Present: EOMI Pupils: Present: HARPAL - ENT ENT exam: Present: normal exam - Neck Neck exam: Present: normal inspection - Respiratory Respiratory exam: Present: clear to auscultation bilaterally. Absent: rhonchi, wheezes - Cardiovascular Cardiovascular exam: Present: regular rate and rhythm. Absent: gallop, rubs, systolic murmur - GI/Abdominal GI/Abdominal exam: Present: normal bowel sounds, soft. Absent: distended, firm , guarding, tenderness, rebound - Extremities Exam Extremities exam: Present: normal inspection. Absent: calf tenderness, edema Results - Labs CBC & BMP: 05/28/16 04:42 05/28/16 04:42 Lab Results: I have reviewed the past 24 hour labs
--- NOTE | 2016-05-28 13:45 | Discharge Summary ---
Hospital Course - Hospital Course Hospital Course: Hepatic encephalopathy: Mr. Almaraz was admitted with symptoms concerning for TIA versus CVA. His symptoms had resolved by admission. Patient had an echocardiogram and carotid ultrasound that were both unremarkable. LDL was66. Neurology was consulted and performed a CT of his neck which was unremarkable. We were unable to obtain an MRI of his brain given . Ammonia level was drawn which was elevated. Right upper quadrant ultrasound was performed which revealed no nodular contour of the liver nor was the patient's hepatic panel or synthetic functions suggesting of cirrhosis. The patient was initiated on lactulose with improvement in his ammonia level. GI was consulted and recommended a liver biopsy, however this was unable to be obtained given that the patient was on Plavix. Of note his alpha-1 antitrypsin was 225 which was above normal. He'll be discharged in stable condition follow up with GI. - Time spent with patient Time with patient DS: Greater than 30 minutes Diagnosis - Discharge Diagnosis (1) Acute metabolic encephalopathy Status: Acute (2) TIA (transient ischemic attack) Status: Acute (3) CVA (cerebral vascular accident) Status: Acute (4) Diabetes mellitus Status: Acute (5) Hypertension Status: Acute (6) Dementia Status: Acute Discharge Plan - Discharge Data Disposition: Disch To Home/Self Care Condition at Discharge: Stable Discharge Diet: advance to your usual diet - Discharge Medications New Lactulose Liquid [Chronulac] 20 gm PO Q4HR #240 udcup Continue Tolterodine LA [Detrol LA] 2 mg PO DAILY Donepezil [Aricept] 10 mg PO BEDTIME Pantoprazole Tab [Protonix Tab] 40 mg PO DAILY Losartan [Cozaar] 50 mg PO DAILY Tamsulosin [Flomax] 0.4 mg PO DAILY Clopidogrel [Plavix] 75 mg PO DAILY Saxagliptin HCl [Onglyza] 2.5 mg PO DAILY Gabapentin Cap/Tab [Neurontin Cap/Tab] 100 mg PO DIRECTED Metoprolol Tartrate 100 mg PO BEDTIME Insulin Aspart [NovoLOG FlexPen] 7 unit SUBCUT TID W/MEALS Insulin Detemir [Levemir FlexPen] 50 unit SUBCUT BEDTIME - Follow Up or Referral Follow Up: Gilberto Jimenez MD [Physician] - 2 Weeks - Forms/Instructions Exam - Constitutional Vitals: Period Temp Pulse Resp BP Sys/Dixon Pulse Ox Last 24 Hr 97.3 F-98.4 F 62-71 16-22 136-191/63-89 95-99 General appearance: normal weight, no acute distress - Head Head exam: Present: normal inspection, normocephalic, atraumatic - Eye Eye exam: Present: EOMI Pupils: Present: HARPAL - ENT ENT exam: Present: normal exam - Neck Neck exam: Present: normal inspection - Respiratory Respiratory exam: Present: clear to auscultation bilaterally - Cardiovascular Cardiovascular exam: Present: regular rate and rhythm - GI/Abdominal GI/Abdominal exam: Present: normal bowel sounds - Extremities Exam Extremities exam: Present: normal inspection Discharge Results Procedures and tests throughout hospitalization: Pending Orders 05/27/16 20:10 Consult to Interventional Rad Routine Labs on day of discharge: Labs from last 24 hours 05/28/16 05/28/16 05/28/16 13:17 12:26 08:40 WBC RBC Hgb Hct MCV MCH MCHC RDW Plt Count MPV Neut % (Auto) Lymph % (Auto) [place] % (Auto) Eos % (Auto) Baso % (Auto) Neut # (Auto) Lymph # (Auto) [place] # (Auto) Eos # (Auto) Baso # (Auto) Immature Gran % Nucleated RBC % Immature Gran # Nucleated RBCs # Sodium Potassium Chloride Carbon Dioxide Anion Gap BUN Creatinine GFR Calculation BUN/Creatinine Ratio Glucose POC Glucose 157 H 55 L 76 Calculated Osmolality Calcium Ammonia 05/28/16 05/28/16 05/27/16 04:42 04:42 20:49 WBC 9.0 D RBC 3.77 L Hgb 10.9 L Hct 33.6 L MCV 89.1 MCH 29 MCHC 32.4 RDW 13.4 Plt Count 168 MPV 9.9 Neut % (Auto) 76.7 H Lymph % (Auto) 11.9 L [place] % (Auto) 10.3 Eos % (Auto) 0.2 Baso % (Auto) 0.3 Neut # (Auto) 6.9 Lymph # (Auto) 1.1 L [place] # (Auto) 0.9 H Eos # (Auto) 0.0 Baso # (Auto) 0.0 Immature Gran % 0.6 Nucleated RBC % 0.0 Immature Gran # 0.05 Nucleated RBCs # 0.00 Sodium 147 H Potassium 4.1 Chloride 113 H Carbon Dioxide 23 Anion Gap 15.1 H BUN 9 Creatinine 1.20 GFR Calculation 75 BUN/Creatinine Ratio 7.00 Glucose 73 L POC Glucose 189 H Calculated Osmolality 289.4 Calcium 7.8 L Ammonia 05/27/16 05/27/16 15:58 15:00 WBC RBC Hgb Hct MCV MCH MCHC RDW Plt Count MPV Neut % (Auto) Lymph % (Auto) [place] % (Auto) Eos % (Auto) Baso % (Auto) Neut # (Auto) Lymph # (Auto) [place] # (Auto) Eos # (Auto) Baso # (Auto) Immature Gran % Nucleated RBC % Immature Gran # Nucleated RBCs # Sodium Potassium Chloride Carbon Dioxide Anion Gap BUN Creatinine GFR Calculation BUN/Creatinine Ratio Glucose POC Glucose 186 H Calculated Osmolality Calcium Ammonia 49 H DS: Provider Date of admission: 05/27/16 13:48 Primary care physician: Joya Long MD Attending physician on admission: Natalee Trejo MD Discharging clinician: Natalee Trejo MD Expected date of discharge: 05/28/16
[2016-05-28 13:56] LABS: Smooth Muscle Antibody Negative (Negative)
--- NOTE | 2016-05-28 15:02 | Neurology Progress Note ---
Sarahy Owen Chassity, am scribing for, and in the presence of, Clemente Lovelace MD 16 :29. Neurology - PN : Subjective Interval history: Patient is feeling good. He is mentally better. No more problems reported. CTA looks okay. Exam (Progress Note) - Constitutional Vitals: Period Temp Pulse Resp BP Sys/Dixon Pulse Ox Last 24 Hr 98.4 F 65 20 143/63 97 Exam: GENERAL: Patient is in no acute distress. NECK: Neck is supple. There is no JVD. No carotid bruits present. No thyroid masses. CVS: First and second heart sounds are normal. There is no S3 present. Regular rate and rhythm. RESPIRATORY: Lungs are clear to auscultation without any rales or rhonchi. ABDOMEN: Soft and non-tender. Bowel sounds are present. There is no hepatosplenomegaly. EXT: There is no palpable edema. Peripheral pulses are present. Skin: No rashes Central Nervous system: General: Alert, awake and Oriented x 3 Speech: Fluent Comprehension: Intact and normal Facial expressions: Normal Cranial Nerves: CN1/Olfactory: Normal CN II/ Optic: Normal, Visual Horan unreliable CN III, and : HARPAL & EOMI CN V: Normal & intact CN VII: face is symmetric CNVIII: Normal CN XI/X/XI/XII: Intact and Normal Motor: Bulk and Tone is normal. Strength in the right 5/5 Strength in the left 4/5 Sensory: Decreased for all the modalities of PP, LT and temp sense in the glove and stocking distribution Reflexes: 1+ and symmetrical Cerebellar function: Normal finger to nose and heel to siegel testing. Gait: Broad-based gait Results - Labs CBC & BMP: 05/27/16 02:55 05/27/16 02:55 Assessment and Plan (1) Altered mental status Status: Acute Assessment and plan: This is likely due to metabolic encephalopathy. No evidence of a new stroke. Patient mental status is back to the baseline. Signoff please call prn. Current Visit: Yes Qualifiers: Altered mental status type: transient alteration of awareness Qualified Code(s): R40.4 - Transient alteration of awareness (2) Carotid artery stenosis Status: Acute Assessment and plan: No carotid stenosis seen. Current Visit: Yes Radu Owen Aamir, MD, personally performed the services described in this documentation, ascribed by Olivia Weathers in my presence, and it is both accurate and complete 502 .
[2016-05-28 16:57] VITALS: BP 180/78
--- NOTE | 2016-05-28 20:38 | Electroencephalogram ---
HISTORY: A 70-year-old patient with a history of change in mental status. INTRODUCTION: A digital EEG was performed using the standard 10-20 system of electrode placement wi th one-channel of EKG monitoring. Photic stimulation and hyperventilation are performed. DESCRIPTION OF RECORD: The background is well-organized and consists of 8 to 8.5 hertz moderate amp litude bilaterally symmetrical alpha rhythm predominant in the posterior head region, which attenuat es with eye opening. Photic stimulation elicits a driving response at intermittent flash frequencie s. Hyperventilation produced mild generalized slowing. Drowsiness and sleep are not achieved. The re are no focal, sharp wave, spike, or wave activity seen. Heart rate 75 beats per minute. IMPRESSION: NORMAL EEG DURING WAKEFULNESS. CLINICAL CORRELATION: No focal nor epileptiform features are seen. Normal EEG does not rule out th e diagnostic possibility of epilepsy. Clinical correlation suggested.
== END 2016-05-28 18:40 | disposition home or self-care (01) | DRG 441 ==
LOC: EDUNIT# → EDBD → N.ED 00:31 → N.EDINP 00:31 → N.TELES 04:50 → N.4E 05-27 18:28
PROVIDERS: ADMIT Internal Medicine; ATTEND Internal Medicine

== ENCOUNTER 2016-09-02 13:00 | Inpatient (IN) ==
[2016-09-02] MEDS ORDERED: ONDANSETRON 4 MG/2 ML VIAL IV PRN (17:46)
[2016-09-02] MEDS ORDERED: DOCUSATE SODIUM 100 MG CAPSULE PO PRN (17:46)
[2016-09-02] MEDS ORDERED: DEXTROSE 50% 25 GM/50 ML VIAL IV PRN (18:11)
[2016-09-02] MEDS ORDERED: GLUCAGON 1 MG VIAL IM PRN (18:11)
--- NOTE | 2016-09-02 18:34 | Hospitalist History & Physical ---
Assessment and Plan (1) Abdominal abscess Problem details: s/p partial colectomy in May 2016 with new RLQ pain and palpable mass Status: Acute Assessment and plan: Pt will be seen by IR tomorrow for drainage replacement. Monitor labs and vital signs. Current Visit: No (2) Colon cancer Status: Acute Current Visit: No (3) Diabetes mellitus Status: Chronic Assessment and plan: SSI insulin ordered. Accuchecks achs. Monitor patient. Diabetic diet. Current Visit: No (4) Hypertension Status: Chronic Assessment and plan: Monitor patient. Current Visit: No History of Present Illness Chief complaint: abdominal pain History of present illness: Mr. Almaraz is a 71 year old male patient with a history of colon cancer, htn, and dm that was a direct admit from the [facility]. The patient was transferred over for replacement of percutaneous drain that was placed [address] Lagos. This is the 3rd time that the patient has had to be admitted since placement of drain due to drain malfunction. The pt was under the care of Dr. Ramsey while at the [facility] who stated that the patient began to complain of abdominal pain at the site. The pt was also noted to have a fever of [address] an abd abscess was noted. He was supposed to have the drain replaced tomorrow by IR but in light of the pt's complaints of severe pain and fever, the patient was transferred over. Currently, the patient complains of pain to the right lower quadrant where drain is located. It is warm and tender to touch. Pt. denies any nausea, vomiting or chills. However, pt is a poor historian and seems unsure as to why he is here. Pt. will be medically managed for htn and dm while under our care and tomorrow at 1 pm will be seen by Dr. Castillo. Plans are for patient to return to the [facility] on tomorrow if stable. Home Medications Medication Instructions Recorded Confirmed Type Clopidogrel [Plavix] 75 mg PO DAILY 05/24/16 09/02/16 History Donepezil [Aricept] 10 mg PO BEDTIME 05/24/16 09/02/16 History Gabapentin Cap/Tab [Neurontin 100 mg PO TID 05/24/16 09/02/16 History Cap/Tab] Insulin Aspart [NovoLOG FlexPen] 7 unit SUBCUT TID W/MEALS 05/24/16 09/02/16 History Insulin Detemir [Levemir FlexPen] 50 unit SUBCUT BEDTIME 05/24/16 09/02/16 History Losartan [Cozaar] 50 mg PO DAILY 05/24/16 09/02/16 History Metoprolol Tartrate 100 mg PO BEDTIME 05/24/16 09/02/16 History Pantoprazole Tab [Protonix Tab] 40 mg PO DAILY 05/24/16 09/02/16 History Saxagliptin HCl [Onglyza] 2.5 mg PO DAILY 05/24/16 09/02/16 History Tamsulosin [Flomax] 0.4 mg PO DAILY 05/24/16 09/02/16 History Tolterodine LA [Detrol LA] 2 mg PO DAILY 05/24/16 09/02/16 History Alcohol Antiseptic Pads [Alcohol 1 each TP TID 08/07/16 09/02/16 History Pads] Diclofenac 1% Gel [Voltaren 1% Gel] 1 applic TOP QID 08/07/16 09/02/16 History Hydrocortisone 1% Cream 1 applic TOP BID 08/07/16 09/02/16 History Menthol [Menthol Gel] 1 applic TOP TID PRN 08/07/16 09/02/16 History Albuterol Inhaler [Proventil 2 puff INH Q6H PRN #20 inhaler 08/15/16 09/02/16 Rx Inhaler] Acetaminophen 500 mg PO Q4-6H 09/02/16 09/02/16 History Docusate Sodium [Colace] 100 mg PO BID 09/02/16 09/02/16 History Zolpidem [Ambien] 5 mg PO BEDTIME PRN 09/02/16 09/02/16 History Allergies Allergy/AdvReac Type Severity Reaction Status Date / Time No Known Allergies Allergy Unverified 05/24/16 00:37 Medical,Surgical,& Family Hx - Medical History Cardio: History of: Cardiac Dysrhythmia, CAD, Hypertension, [place], Pacemaker Neurology: History of: Cerebrovascular Accident No history of: Seizures, TIA Endocrine: History of: Diabetes Mellitus (IDDM), Dyslipidemia Respiratory: History of: Intubation No history of: Obstructive Sleep Apnea, Pulmonary Embolism Gastrointestinal: History of: Liver Problems, Gastrointestinal Cancer (recently diagnosed in jun 2016) Musculoskeletal: No history of: Degenerative Disk Disease Hematology: History of: Anemia No history of: Blood Transfusion Reaction Other: History of: Cancer (sees dr allen. newly dx jun 2016) - Surgical History Cardiac Surgeries: Sugical HX of: Cardiac Catheterization, Cardiac Surgery (CABG ) Abdominal Surgeries: Surgical HX of: Abdominal Surgery (colectomey in jun 2016) , Colonoscopy, EGD - Family History Family History: Reports;: Family Diabetes, Family Heart Disease, Family Hypertension, Family Stroke Denies;: Family Anesthesia Reaction, Family Cancer, Family Hematology, Family Psychiatric Problems, Additional Family History - Social History Smoking Status: Never smoker Frequency of Alcohol Use: None Type of Drug Use: None - Constitutional Constitutional: Present: fever(s). Absent: chills Exam - Constitutional Vitals: Period Temp Pulse Resp BP Sys/Dixon Pulse Ox Last 24 Hr 99.0 F 77 18 157/62 99 General appearance: no acute distress - Head Head exam: Present: normal inspection, normocephalic - Eye Eye exam: Present: EOMI Pupils: Present: HARPAL - Neck Neck exam: Present: normal inspection - Respiratory Respiratory exam: Present: clear to auscultation bilaterally - Cardiovascular Cardiovascular exam: Present: regular rate and rhythm - GI/Abdominal GI/Abdominal exam: Present: normal bowel sounds, tenderness, soft, other (drain to right lower quadrant; tender and warm to touch) - Extremities Exam Extremities exam: Present: normal capillary refill, full ROM, other (left lower leg lateral wound). Absent: edema - Neurological Exam Neurological exam: Present: alert, oriented X3, normal gait - Psychiatric Psychiatric exam: Present: normal affect, normal mood - Skin Skin exam: Present: normal color, warm, dry
[2016-09-02] MEDS ORDERED: ALBUTEROL 2.5 MG/3 ML NEB RESP TX PRN (21:00)
[2016-09-02] MEDS: INSULIN GLARGINE 100 UNIT/ML SUBCUT SCH (21:22)
[2016-09-02] MEDS: INSULIN LISPRO 100 UNIT/ML SUBCUT SCH (21:25)
[2016-09-02] MEDS: DONEPEZIL 10 MG TABLET PO SCH (21:25)
[2016-09-02] MEDS: GABAPENTIN 100 MG CAPSULE PO SCH (21:25)
[2016-09-02] MEDS: METOPROLOL TARTRATE 100 MG TABLET PO SCH (21:26)
[2016-09-02] MEDS: DOCUSATE SODIUM 100 MG CAPSULE PO SCH (21:26)
[2016-09-02] MEDS: CLINDAMYCIN INJ 600 MG in PREMIX 1 EACH IV SCH (21:28)
[2016-09-03] MEDS: CLINDAMYCIN INJ 600 MG in PREMIX 1 EACH IV SCH ×3 (04:53→22:14)
[2016-09-03 06:44] LABS: Basophils % 0.3 % (0.0-0.8); Eosinophils # 0.1 10*3/uL (0.0-0.87); Eosinophils % 1.1 % (0.00-10.9); Hemoglobin 8.6 GM/DL (14.0-18.0); Immature Granulocytes % 0.5 %; Immature Granulocytes Absolute 0.05 #; Lymphocytes # 0.9 10*3/uL (1.4-4.0); Lymphocytes % 9.1 % (21.2-54.2); Mean Corpuscular HGB Conc 31.9 GM/DL (32-36); Mean Corpuscular Hemoglobin 28 PG (27-34); Mean Corpuscular Volume 87.1 FL (87-102); Mean Platelet Volume 10.4 FL (9.6-12.0); Monocytes # 1.1 10*3/uL (0.11-0.8); Monocytes % 11.5 % (1.7-12.7); Neutrophils # 7.3 10*3/uL (1.4-7.4); Neutrophils % 77.5 % (38.7-73.9); Platelet Count 273 T/CUMM (130-400); Red Cell Distribution Width 15.9 % (9.3-17.3); White Blood Count 9.4 T/CUMM (4-12)
[2016-09-03 07:21] LABS: Calcium 8.2 MG/DL (8.5-10.1); Osmolality,Calculated 276.5 MOS/KG (273-304); Potassium 4.9 MMOL/L (3.5-5.1)
--- NOTE | 2016-09-03 07:27 | Hospitalist Progress Note ---
Assessment and Plan (1) Diabetes mellitus Status: Chronic Assessment and plan: He is presently being treated with Levemir insulin, NovoLog insulin, and saxagliptin.His blood glucose yesterday was 210. His blood glucose today is 93. I will continue his present medications. Current Visit: No Qualifiers: Diabetes mellitus type: type 1 (2) Colon cancer Status: Acute Assessment and plan: He is status post hemicolectomy for adenocarcinoma of the colon. No further treatment is planned at this time. Current Visit: No (3) S/P right hemicolectomy Status: Resolved Assessment and plan: See above. Current Visit: No (4) Abdominal abscess Problem details: s/p partial colectomy in May 2016 with new RLQ pain and palpable mass Status: Acute Assessment and plan: He underwent previous percutaneous drainage of an abdominal abscess following his hemicolectomy. A CT scan of the abdomen and pelvis performed at the [facility] has demonstrated recurrent formation of an abdominal abscess. He is being treated with intravenous clindamycin. Interventional radiology has been consulted. Current Visit: No Hospitalist: Subjective Interval history: Mr. Almaraz is a 71-year-old male who is status post right hemicolectomy for adenocarcinoma of the colon. Postoperative he underwent percutaneous drainage of an abscess of the right lower quadrant. It subsequently been treated with intravenous clindamycin for several weeks. He was hospitalized at the [facility] because of increasing abdominal pain and fever. A repeat CT scan of the abdomen and pelvis demonstrated a recurrent abscess. He was transferred here yesterday for further evaluation and probable reinsertion of her percutaneous drain of the newly developed abscess. He continues on intravenous clindamycin. Interventional radiology has been consulted. Exam - Constitutional Vitals: Period Temp Pulse Resp BP Sys/Dixon Pulse Ox Last 24 Hr 98.5 F-99.6 F 63-78 18-20 131-157/56-62 96-99 General appearance: no acute distress - Head Head exam: Present: normal inspection, normocephalic - Eye Eye exam: Present: EOMI Pupils: Present: HARPAL - Neck Neck exam: Present: normal inspection - Respiratory Respiratory exam: Present: clear to auscultation bilaterally - Cardiovascular Cardiovascular exam: Present: regular rate and rhythm - GI/Abdominal GI/Abdominal exam: Present: normal bowel sounds, tenderness, other (Surgical scar present) - Extremities Exam Extremities exam: Present: normal inspection - Back Exam Back exam: Present: normal inspection - Neurological Exam Neurological exam: Present: alert, oriented X3 - Skin Skin exam: Present: normal color, warm, dry Results - Labs CBC & BMP: 09/03/16 05:39 09/03/16 05:39
--- NOTE | 2016-09-03 07:38 | General Surgery Consult Note ---
Assessment and Plan (1) Abdominal abscess Problem details: s/p partial colectomy in May 2016 with new RLQ pain and palpable mass Status: Acute Assessment and plan: This patient has recurrent abdominal abscesses that have failed percutaneous drainage. I am going to recommend open surgical drainage of these in the OR today. I discussed this with the patient and his family. I will discuss this with radiology as well. I think we should go ahead and drain this area as and then we can repeat a CT scan later if we have continued problems. The patient will be transferred to my service. Current Visit: No History of Present Illness Chief complaint: Abdominal abscess History of present illness: Mr. Almaraz is a 71 year old male admitted with failure of percutaneous drainage therapy of right lower quadrant abscess. The patient is 3 months out from a right colectomy for colon cancer. He was transferred back here for fevers and because drain was malfunctioning. Home Medications Medication Instructions Recorded Confirmed Type Clopidogrel [Plavix] 75 mg PO DAILY 05/24/16 09/02/16 History Donepezil [Aricept] 10 mg PO BEDTIME 05/24/16 09/02/16 History Gabapentin Cap/Tab [Neurontin 100 mg PO TID 05/24/16 09/02/16 History Cap/Tab] Insulin Aspart [NovoLOG FlexPen] 7 unit SUBCUT TID W/MEALS 05/24/16 09/02/16 History Insulin Detemir [Levemir FlexPen] 50 unit SUBCUT BEDTIME 05/24/16 09/02/16 History Losartan [Cozaar] 50 mg PO DAILY 05/24/16 09/02/16 History Metoprolol Tartrate 100 mg PO BEDTIME 05/24/16 09/02/16 History Pantoprazole Tab [Protonix Tab] 40 mg PO DAILY 05/24/16 09/02/16 History Saxagliptin HCl [Onglyza] 2.5 mg PO DAILY 05/24/16 09/02/16 History Tamsulosin [Flomax] 0.4 mg PO DAILY 05/24/16 09/02/16 History Tolterodine LA [Detrol LA] 2 mg PO DAILY 05/24/16 09/02/16 History Alcohol Antiseptic Pads [Alcohol 1 each TP TID 08/07/16 09/02/16 History Pads] Diclofenac 1% Gel [Voltaren 1% Gel] 1 applic TOP QID 08/07/16 09/02/16 History Hydrocortisone 1% Cream 1 applic TOP BID 08/07/16 09/02/16 History Menthol [Menthol Gel] 1 applic TOP TID PRN 08/07/16 09/02/16 History Albuterol Inhaler [Proventil 2 puff INH Q6H PRN #20 inhaler 08/15/16 09/02/16 Rx Inhaler] Acetaminophen 500 mg PO Q4-6H 09/02/16 09/02/16 History Docusate Sodium [Colace] 100 mg PO BID 09/02/16 09/02/16 History Zolpidem [Ambien] 5 mg PO BEDTIME PRN 09/02/16 09/02/16 History Allergies Allergy/AdvReac Type Severity Reaction Status Date / Time No Known Allergies Allergy Unverified 05/24/16 00:37 Medical,Surgical,& Family Hx - Medical History Cardio: History of: Cardiac Dysrhythmia, CAD, Hypertension, ND, Pacemaker Neurology: History of: Cerebrovascular Accident No history of: Seizures, TIA Endocrine: History of: Diabetes Mellitus (IDDM), Dyslipidemia Respiratory: History of: Intubation No history of: Obstructive Sleep Apnea, Pulmonary Embolism Gastrointestinal: History of: Liver Problems, Gastrointestinal Cancer (recently diagnosed in jun 2016) Musculoskeletal: No history of: Degenerative Disk Disease Hematology: History of: Anemia No history of: Blood Transfusion Reaction Other: History of: Cancer (sees dr allen. newly dx jun 2016) - Surgical History Cardiac Surgeries: Sugical HX of: Cardiac Catheterization, Cardiac Surgery (CABG ) Abdominal Surgeries: Surgical HX of: Abdominal Surgery (colectomey in jun 2016) , Colonoscopy, EGD - Family History Family History: Reports;: Family Diabetes, Family Heart Disease, Family Hypertension, Family Stroke Denies;: Family Anesthesia Reaction, Family Cancer, Family Hematology, Family Psychiatric Problems, Additional Family History - Social History Smoking Status: Never smoker Frequency of Alcohol Use: None Type of Drug Use: None - Constitutional Constitutional: Present: as per HPI - EENT Nose, mouth and throat: Present: as per HPI - Cardiovascular Cardiovascular: Present: as per HPI - Respiratory Respiratory: Present: as per HPI - Gastrointestinal Gastrointestinal: Present: as per HPI - Genitourinary Genitourinary: Present: as per HPI - Musculoskeletal Musculoskeletal: Present: as per HPI - Neurological Neurological: Present: as per HPI - Endocrine Endocrine: Present: as per HPI Hematologic/Lymphatic: Present: as per HPI Exam - Constitutional Vitals: Period Temp Pulse Resp BP Sys/Dixon Pulse Ox Last 24 Hr 98.5 F-99.6 F 63-78 18-20 131-157/56-62 96-99 General appearance: no acute distress, over weight - Head Head exam: Present: normal inspection, normocephalic - Eye Eye exam: Present: EOMI. Absent: scleral icterus Pupils: Present: HARPAL - ENT ENT exam: Present: normal exam Mouth exam: Present: normal external inspection, normal voice - Neck Neck exam: Present: normal inspection, trachea midline - Respiratory Respiratory exam: Present: clear to auscultation bilaterally. Absent: accessory muscle use, chest wall tenderness - Cardiovascular Cardiovascular exam: Present: RRR. Absent: systolic murmur, tachycardia - GI/Abdominal GI/Abdominal exam: Present: tenderness, soft, other (There is a large area of abscess in the right lower quadrant abdominal wall with active purulent drainage. The midline abdominal incision also has purulent drainage.) - Extremities Exam Extremities exam: Present: normal inspection, normal capillary refill - Back Exam Back exam: Present: normal inspection - Neurological Exam Neurological exam: Present: alert, oriented X3 Speech: Present: normal - Skin Skin exam: Present: normal color, warm Results - Labs CBC & BMP: 09/03/16 05:39 09/03/16 05:39
[2016-09-03] MEDS ORDERED: PANTOPRAZOLE 40 MG TABLET PO SCH (09:00)
[2016-09-03] MEDS: INSULIN LISPRO 100 UNIT/ML SUBCUT SCH ×7 (10:53→21:41)
[2016-09-03] MEDS: DOCUSATE SODIUM 100 MG CAPSULE PO SCH ×2 (10:53→21:38)
[2016-09-03] MEDS: GABAPENTIN 100 MG CAPSULE PO SCH ×3 (10:53→21:38)
[2016-09-03] MEDS ORDERED: ONDANSETRON 4 MG/2 ML VIAL ONE ×2 (11:36→12:20)
[2016-09-03] MEDS ORDERED: GLYCOPYRROLATE 0.4 MG/2 ML VIAL ONE (11:36)
[2016-09-03] MEDS ORDERED: SUCCINYLCHOLINE 200 MG/10 ML VIAL ONE (11:36)
[2016-09-03] MEDS ORDERED: PROPOFOL 200 MG/20 ML VIAL IV ONE (11:36)
[2016-09-03] MEDS ORDERED: NEOSTIGMINE 10 MG/10 ML VIAL ONE (11:36)
[2016-09-03] MEDS ORDERED: ROCURONIUM 100 MG/10 ML VIAL IV ONE (11:36)
[2016-09-03] MEDS ORDERED: HYDROmorphone 2 MG/1 ML VIAL ONE (12:20)
[2016-09-03] MEDS ORDERED: fentaNYL 100 MCG/2 ML VIAL ONE (12:25)
[2016-09-03] MEDS ORDERED: ONDANSETRON 4 MG/2 ML VIAL IV PRN (12:45)
[2016-09-03] MEDS ORDERED: HYDROmorphone 2 MG/1 ML VIAL IV PRN ×2 (12:45→13:18)
--- NOTE | 2016-09-03 12:54 | Operative Note ---
Date of procedure: 09/03/16 Pre-op diagnosis: Abdominal wall abscess Post-op diagnosis: same Procedure: Preoperative diagnosis Abdominal wall abscess Postoperative diagnosis Same Procedures performed Incision and drainage of complex abdominal wall abscess Findings A large amount of pus was drained from the abdominal wall and appeared to go below the fascia. This was completely evacuated. No foreign body was found. It was irrigated and a Rajwinder drain was placed. It did not communicate with the umbilical wound which was also widened and irrigated. Complications None apparent Specimen Cultures Anesthesia GETA Blood loss Minimal Indications Abdominal wall abscess recurrence and failure of percutaneous drainage Scription of procedure The patient was taken to the operating room and transferred to the operating table in the supine position. Pressure points were padded and SCDs were placed lower extremities. General endotracheal anesthesia was administered. The abdomen was prepped with Betadine and draped sterilely. Timeout was called. Incision was made over the abscess which already had purulent drainage from the pigtail catheter. The large amount of pus was drained and there is a complex fluid collection with multiple loculations that were all broken up with digital manual evaluation. The abscess cavity was completely evacuated and irrigated. It was difficult to tell the fascial soft tissue planes because of the large amount of inflammatory changes but it did appear fascia. No bowel same. The Rajwinder drain was placed on the base of the wound and sewn at the skin level with a 3-0 nylon suture. Adaptic Vaseline gauze was placed at the base wound after it was irrigated copiously and was packed with wet-to-dry Dakin's dressing. He was covered with gauze and dressed sterilely. The umbilical wound is also draining some pus and it was opened more widely but did not communicate with the right lower quadrant collection. This was also irrigated and packed with Dakin's wet-to-dry dressing. The patient was awakened from anesthesia and transferred to recovery. Postoperative plan Continue wound care and antibiotics Follow-up cultures Implants: 1/2 inch rajwinder drain Anesthesia: MANSI Surgeon / Physician: Jose Lagos Specimens: other (cultures) Condition: stable Disposition: PACU Results - Labs CBC & BMP: 09/03/16 05:39 09/03/16 05:39 Discharge Plan - Discharge Medications No Action Tolterodine LA [Detrol LA] 2 mg PO DAILY Donepezil [Aricept] 10 mg PO BEDTIME Pantoprazole Tab [Protonix Tab] 40 mg PO DAILY Losartan [Cozaar] 50 mg PO DAILY Tamsulosin [Flomax] 0.4 mg PO DAILY Clopidogrel [Plavix] 75 mg PO DAILY Saxagliptin HCl [Onglyza] 2.5 mg PO DAILY Menthol [Menthol Gel] 1 applic TOP TID PRN PRN Reason: MUSCLE ACHE/PAIN Alcohol Antiseptic Pads [Alcohol Pads] 1 each TP TID Hydrocortisone 1% Cream 1 applic TOP BID Albuterol Inhaler [Proventil Inhaler] 2 puff INH Q6H PRN #20 inhaler PRN Reason: Shortness Of Breath/Wheezing Docusate Sodium [Colace] 100 mg PO BID Acetaminophen 500 mg PO Q4-6H Gabapentin Cap/Tab [Neurontin Cap/Tab] 100 mg PO TID Metoprolol Tartrate 100 mg PO BEDTIME Insulin Aspart [NovoLOG FlexPen] 7 unit SUBCUT TID W/MEALS Insulin Detemir [Levemir FlexPen] 50 unit SUBCUT BEDTIME Diclofenac 1% Gel [Voltaren 1% Gel] 1 applic TOP QID Zolpidem [Ambien] 5 mg PO BEDTIME PRN PRN Reason: Sleep - Follow Up or Referral - Forms/Instructions
[2016-09-03] MEDS: sitaGLIPtin 25 MG TABLET PO SCH (15:03)
[2016-09-03] MEDS: TOLTERODINE LA 2 MG CAPSULE PO SCH (15:10)
[2016-09-03] MEDS: TAMSULOSIN 0.4 MG CAPSULE PO SCH (15:10)
[2016-09-03] MEDS: LOSARTAN 50 MG TABLET PO SCH (15:10)
[2016-09-03] MEDS: PANTOPRAZOLE 40 MG TABLET PO SCH (15:11)
--- NOTE | 2016-09-03 16:30 | Event Note ---
S:Postop day #0 status post I&D of complex abdominal wall abscess. Patient is sitting up in the bed and has mobilized without difficulty. His pain is currently controlled. Denies chest pain, shortness of breath, palpitations, wheeze or cough. There is concerned that dressing is beginning to saturate. No other issues. O: Vital signs stable Heart regular rate and rhythm Clear to auscultation bilaterally Abdomen soft and nontender. No abdominal distention noted. Dressing was taken down. The packing in the umbilical incision is with minimal drainage. The lateral incision has a copious amounts of drainage which with the current dressings are saturated. The internal packing dressings were left in place and the external were dressed with 4 x 4's, fluffed Kerlix, and multiple ABDs and reinforced with tape. The patient was comfortable at the time. Extremities: SCDs in place. No pedal edema or calf tenderness noted. Assessment and plan: Patient appears stable at postop check. Dressing is been reinforced. There is no evidence of bleeding as this is just copious drainage from the abscess. The patient has analgesics and antiemetics as needed on the chart. Advance his diet as tolerated. Mobilize as tolerated. Encouraged incentive spirometry use. Follow-up labs in the morning.
[2016-09-03] MEDS: DONEPEZIL 10 MG TABLET PO SCH (21:37)
[2016-09-03] MEDS: INSULIN GLARGINE 100 UNIT/ML SUBCUT SCH (21:39)
[2016-09-03] MEDS: METOPROLOL TARTRATE 100 MG TABLET PO SCH (22:15)
[2016-09-04] MEDS: CLINDAMYCIN INJ 600 MG in PREMIX 1 EACH IV SCH ×3 (04:24→19:52)
[2016-09-04 05:44] LABS: Basophils % 0.2 % (0.0-0.8); Eosinophils # 0.1 10*3/uL (0.0-0.87); Eosinophils % 0.9 % (0.00-10.9); Hematocrit 25.1 VOL% (42.0-52.0); Hemoglobin 7.7 GM/DL (14.0-18.0); Immature Granulocytes % 0.5 %; Immature Granulocytes Absolute 0.04 #; Lymphocytes # 1.1 10*3/uL (1.4-4.0); Lymphocytes % 13.9 % (21.2-54.2); Mean Corpuscular HGB Conc 30.7 GM/DL (32-36); Mean Corpuscular Hemoglobin 28 PG (27-34); Mean Corpuscular Volume 89.6 FL (87-102); Mean Platelet Volume 10.3 FL (9.6-12.0); Monocytes # 0.9 10*3/uL (0.11-0.8); Monocytes % 11.3 % (1.7-12.7); Neutrophils % 73.2 % (38.7-73.9); Platelet Count 238 T/CUMM (130-400); Red Cell Distribution Width 16.1 % (9.3-17.3); White Blood Count 8.1 T/CUMM (4-12)
[2016-09-04 06:20] LABS: Calcium 7.8 MG/DL (8.5-10.1); Osmolality,Calculated 272.7 MOS/KG (273-304); Potassium 4.9 MMOL/L (3.5-5.1)
[2016-09-04] MEDS: INSULIN LISPRO 100 UNIT/ML SUBCUT SCH ×8 (07:38→20:16)
--- NOTE | 2016-09-04 08:16 | Event Note ---
General Surgery Progress Note Chief complaint This patient is a 71-year-old man admitted with an abdominal wall abscess that failed percutaneous drainage multiple times treated with incision and drainage and Marycarmen drain placement on 09/03/2016 Interval history No events overnight. The patient is doing well today. His creatinine went up a little bit to 1.4. His vital signs are unremarkable. Hemoglobin drifted down to 7.7 Physical exam The patient is afebrile with normal vital signs His abdominal wounds are clean and the Marycarmen is intact there is no further purulent drainage Labs Reviewed, as above Imaging None new Assessment and plan Continue antibiotics and wound care Follow-up cultures Repeat labs tomorrow
[2016-09-04] MEDS: LOSARTAN 50 MG TABLET PO SCH (08:17)
[2016-09-04] MEDS: PANTOPRAZOLE 40 MG TABLET PO SCH (08:17)
[2016-09-04] MEDS: GABAPENTIN 100 MG CAPSULE PO SCH ×3 (08:17→20:01)
[2016-09-04] MEDS: TOLTERODINE LA 2 MG CAPSULE PO SCH (08:17)
[2016-09-04] MEDS: sitaGLIPtin 25 MG TABLET PO SCH (08:17)
[2016-09-04] MEDS: TAMSULOSIN 0.4 MG CAPSULE PO SCH (08:17)
[2016-09-04] MEDS: DOCUSATE SODIUM 100 MG CAPSULE PO SCH ×2 (08:17→20:02)
[2016-09-04] MEDS: LACTATED RINGERS 1,000 ML IV SCH ×2 (09:00→19:52)
[2016-09-04] MEDS: DONEPEZIL 10 MG TABLET PO SCH (20:01)
[2016-09-04] MEDS: INSULIN GLARGINE 100 UNIT/ML SUBCUT SCH (20:05)
[2016-09-04] MEDS: METOPROLOL TARTRATE 100 MG TABLET PO SCH (20:16)
[2016-09-05] MEDS: CLINDAMYCIN INJ 600 MG in PREMIX 1 EACH IV SCH ×3 (04:03→20:25)
[2016-09-05] MEDS: LACTATED RINGERS 1,000 ML IV SCH (05:10)
[2016-09-05 07:39] LABS: Basophils % 0.3 % (0.0-0.8); Eosinophils # 0.1 10*3/uL (0.0-0.87); Hematocrit 24.6 VOL% (42.0-52.0); Hemoglobin 7.6 GM/DL (14.0-18.0); Immature Granulocytes % 0.4 %; Immature Granulocytes Absolute 0.03 #; Lymphocytes # 0.9 10*3/uL (1.4-4.0); Lymphocytes % 12.2 % (21.2-54.2); Mean Corpuscular HGB Conc 30.9 GM/DL (32-36); Mean Corpuscular Hemoglobin 28 PG (27-34); Mean Corpuscular Volume 89.1 FL (87-102); Mean Platelet Volume 10.3 FL (9.6-12.0); Monocytes # 0.7 10*3/uL (0.11-0.8); Monocytes % 9.8 % (1.7-12.7); Neutrophils # 5.6 10*3/uL (1.4-7.4); Neutrophils % 76.3 % (38.7-73.9); Platelet Count 212 T/CUMM (130-400); Red Blood Count 2.76 MC/CUMM (3.8-5.5); White Blood Count 7.3 T/CUMM (4-12)
[2016-09-05] MEDS: INSULIN LISPRO 100 UNIT/ML SUBCUT SCH ×7 (07:49→20:26)
[2016-09-05 08:10] LABS: Calcium 7.2 MG/DL (8.5-10.1); Osmolality,Calculated 275.5 MOS/KG (273-304); Potassium 4.7 MMOL/L (3.5-5.1)
[2016-09-05] MEDS: DOCUSATE SODIUM 100 MG CAPSULE PO SCH ×2 (08:24→20:24)
[2016-09-05] MEDS: GABAPENTIN 100 MG CAPSULE PO SCH ×3 (08:24→20:25)
[2016-09-05] MEDS: LOSARTAN 50 MG TABLET PO SCH (08:24)
[2016-09-05] MEDS: sitaGLIPtin 25 MG TABLET PO SCH (08:24)
[2016-09-05] MEDS: TAMSULOSIN 0.4 MG CAPSULE PO SCH (08:24)
[2016-09-05] MEDS: TOLTERODINE LA 2 MG CAPSULE PO SCH (08:24)
[2016-09-05] MEDS: PANTOPRAZOLE 40 MG TABLET PO SCH (08:24)
--- NOTE | 2016-09-05 14:16 | Event Note ---
General Surgery Progress Note Chief complaint This patient is a 71-year-old man admitted with an abdominal wall abscess that failed percutaneous drainage multiple times treated with incision and drainage and Marycarmen drain placement on 09/03/2016. Originally, status post right colectomy for Dr. Lagos May 2016 for new diagnosis of right colon CA. Interval history The patient is doing well today. Tolerating a diet and mobilizing. Voiding without difficulty. BM 2d ago. Pain controlled. Physical exam VSS; AF Lungs: CTAB Heart: RRR Abd: umbilical and RLQ wounds are clean and the [place] is intact there is no further purulent drainage. Abdomen is soft with appropriate p/o tenderness. BS present. Ext: no pedal edema or calf tenderness Labs Creatinine continues to slowly rise now 1.5; 1.3 on admission H/H 7.6/24.6 - yesterday hgb7.7 Culture: klebsiella; gram (+) cocci Assessment and plan 1. Intra-abdominal abscess - Continue clindamycin until G+ cocci final culture results; add ceftazidime with klebsiella sensitivities - Continue local wound care 2. Renal insufficiency: - Monitor UO (currently adequate), electrolytes and renal function. - Avoid nephrotoxins. 3. Anemia - likely blood loss - normocytic. H/H stable and asx. Monitor. 4. H/o Colon cancer with no evidence of recurrence per Dr. Lundberg on 08/20. Will f/u as scheduled upon d/c. 5. H/o CAD - H/H stable - restart plavix. 6. H/o HTN - controlled. Continue current regimen. 7. H/o IDDM - controlled. Continue current regimen. 8. DVT ppx: SCD. H/H stable - Start lovenox daily. 9. GI ppx: PPI daily 10. Dispo: previously at [facility] for IV abx; return if IV abx required vs home with HH. C/s CM to initiate planning.
[2016-09-05] MEDS: CLOPIDOGREL 75 MG TABLET PO SCH (14:44)
[2016-09-05] MEDS: ENOXAPARIN 30 MG/0.3 ML SYRINGE SUBCUT SCH (14:44)
[2016-09-05] MEDS: DONEPEZIL 10 MG TABLET PO SCH (20:24)
[2016-09-05] MEDS: INSULIN GLARGINE 100 UNIT/ML SUBCUT SCH (20:25)
[2016-09-05] MEDS: METOPROLOL TARTRATE 100 MG TABLET PO SCH (20:27)
[2016-09-06] MEDS: CLINDAMYCIN INJ 600 MG in PREMIX 1 EACH IV SCH ×3 (04:28→20:09)
[2016-09-06 05:26] LABS: Basophils % 0.3 % (0.0-0.8); Eosinophils # 0.1 10*3/uL (0.0-0.87); Eosinophils % 1.1 % (0.00-10.9); Hematocrit 24.9 VOL% (42.0-52.0); Hemoglobin 7.4 GM/DL (14.0-18.0); Immature Granulocytes % 0.5 %; Immature Granulocytes Absolute 0.03 #; Mean Corpuscular HGB Conc 29.7 GM/DL (32-36); Mean Corpuscular Hemoglobin 28 PG (27-34); Mean Corpuscular Volume 92.6 FL (87-102); Monocytes # 0.6 10*3/uL (0.11-0.8); Monocytes % 10.4 % (1.7-12.7); Neutrophils # 4.4 10*3/uL (1.4-7.4); Neutrophils % 71.7 % (38.7-73.9); Platelet Count 215 T/CUMM (130-400); Red Blood Count 2.69 MC/CUMM (3.8-5.5); White Blood Count 6.2 T/CUMM (4-12)
[2016-09-06 05:54] LABS: Calcium 7.8 MG/DL (8.5-10.1); Osmolality,Calculated 277.3 MOS/KG (273-304); Potassium 4.9 MMOL/L (3.5-5.1)
[2016-09-06] MEDS: INSULIN LISPRO 100 UNIT/ML SUBCUT SCH ×7 (07:13→21:05)
[2016-09-06] MEDS: DOCUSATE SODIUM 100 MG CAPSULE PO SCH ×2 (08:17→20:10)
[2016-09-06] MEDS: TOLTERODINE LA 2 MG CAPSULE PO SCH (08:17)
[2016-09-06] MEDS: GABAPENTIN 100 MG CAPSULE PO SCH ×3 (08:17→20:10)
[2016-09-06] MEDS: PANTOPRAZOLE 40 MG TABLET PO SCH (08:17)
[2016-09-06] MEDS: sitaGLIPtin 25 MG TABLET PO SCH (08:17)
[2016-09-06] MEDS: CLOPIDOGREL 75 MG TABLET PO SCH (08:17)
[2016-09-06] MEDS: TAMSULOSIN 0.4 MG CAPSULE PO SCH (08:17)
[2016-09-06] MEDS: LOSARTAN 50 MG TABLET PO SCH (08:17)
--- NOTE | 2016-09-06 10:10 | Event Note ---
Status post I&D. Afebrile vital signs stable. Tolerating diet. Fairly weak. Wounds are clean. There is moderate amount of drainage from around the [place]. We will continue packing and antibiotics.
[2016-09-06] MEDS: ENOXAPARIN 30 MG/0.3 ML SYRINGE SUBCUT SCH (14:30)
[2016-09-06] MEDS: DONEPEZIL 10 MG TABLET PO SCH (20:10)
[2016-09-06] MEDS: METOPROLOL TARTRATE 100 MG TABLET PO SCH (20:10)
[2016-09-06] MEDS: INSULIN GLARGINE 100 UNIT/ML SUBCUT SCH (21:04)
[2016-09-07] MEDS: CLINDAMYCIN INJ 600 MG in PREMIX 1 EACH IV SCH ×3 (03:13→20:27)
[2016-09-07 05:45] LABS: Basophils % 0.3 % (0.0-0.8); Eosinophils # 0.1 10*3/uL (0.0-0.87); Hematocrit 27.5 VOL% (42.0-52.0); Hemoglobin 8.2 GM/DL (14.0-18.0); Immature Granulocytes % 0.5 %; Immature Granulocytes Absolute 0.03 #; Lymphocytes # 0.8 10*3/uL (1.4-4.0); Lymphocytes % 13.8 % (21.2-54.2); Mean Corpuscular HGB Conc 29.8 GM/DL (32-36); Mean Corpuscular Hemoglobin 27 PG (27-34); Mean Platelet Volume 9.8 FL (9.6-12.0); Monocytes # 0.6 10*3/uL (0.11-0.8); Monocytes % 10.7 % (1.7-12.7); Neutrophils # 4.3 10*3/uL (1.4-7.4); Neutrophils % 73.7 % (38.7-73.9); Platelet Count 258 T/CUMM (130-400); Red Blood Count 2.99 MC/CUMM (3.8-5.5); Red Cell Distribution Width 15.9 % (9.3-17.3); White Blood Count 5.8 T/CUMM (4-12)
[2016-09-07] MEDS: INSULIN LISPRO 100 UNIT/ML SUBCUT SCH ×7 (08:25→23:09)
[2016-09-07] MEDS: TOLTERODINE LA 2 MG CAPSULE PO SCH (09:28)
[2016-09-07] MEDS: GABAPENTIN 100 MG CAPSULE PO SCH ×3 (09:28→20:27)
[2016-09-07] MEDS: DOCUSATE SODIUM 100 MG CAPSULE PO SCH ×2 (09:28→20:27)
[2016-09-07] MEDS: PANTOPRAZOLE 40 MG TABLET PO SCH (09:28)
[2016-09-07] MEDS: CLOPIDOGREL 75 MG TABLET PO SCH (09:28)
[2016-09-07] MEDS: LOSARTAN 50 MG TABLET PO SCH (09:28)
[2016-09-07] MEDS: TAMSULOSIN 0.4 MG CAPSULE PO SCH (09:28)
[2016-09-07] MEDS: sitaGLIPtin 25 MG TABLET PO SCH (09:29)
--- NOTE | 2016-09-07 10:20 | Event Note ---
Afebrile vital signs stable. Tolerating a diet. No significant pain. The wounds are clean with no erythema or cellulitis. There remains some purulent drainage coming from around the Marycarmen. We will continue packing and antibiotics.
[2016-09-07] MEDS: ENOXAPARIN 30 MG/0.3 ML SYRINGE SUBCUT SCH (15:02)
[2016-09-07] MEDS: METOPROLOL TARTRATE 100 MG TABLET PO SCH (20:27)
[2016-09-07] MEDS: DONEPEZIL 10 MG TABLET PO SCH (20:27)
[2016-09-07] MEDS: INSULIN GLARGINE 100 UNIT/ML SUBCUT SCH (23:09)
[2016-09-08] MEDS: CLINDAMYCIN INJ 600 MG in PREMIX 1 EACH IV SCH (04:03)
[2016-09-08 07:01] LABS: Basophils % 0.5 % (0.0-0.8); Eosinophils # 0.1 10*3/uL (0.0-0.87); Eosinophils % 1.3 % (0.00-10.9); Hematocrit 25.8 VOL% (42.0-52.0); Hemoglobin 8.2 GM/DL (14.0-18.0); Immature Granulocytes % 0.4 %; Immature Granulocytes Absolute 0.02 #; Lymphocytes # 0.9 10*3/uL (1.4-4.0); Mean Corpuscular HGB Conc 31.8 GM/DL (32-36); Mean Corpuscular Hemoglobin 28 PG (27-34); Mean Corpuscular Volume 87.2 FL (87-102); Mean Platelet Volume 9.8 FL (9.6-12.0); Monocytes # 0.5 10*3/uL (0.11-0.8); Monocytes % 8.6 % (1.7-12.7); Neutrophils % 72.2 % (38.7-73.9); Platelet Count 258 T/CUMM (130-400); Red Blood Count 2.96 MC/CUMM (3.8-5.5); Red Cell Distribution Width 15.9 % (9.3-17.3); White Blood Count 5.5 T/CUMM (4-12)
[2016-09-08 07:39] LABS: Calcium 7.8 MG/DL (8.5-10.1); Potassium 4.5 MMOL/L (3.5-5.1)
[2016-09-08] MEDS: LOSARTAN 50 MG TABLET PO SCH (09:46)
[2016-09-08] MEDS: SODIUM HYPOCHLORITE 0.25% IRRIG 473 ML BOTTLE IRRIG SCH (09:46)
[2016-09-08] MEDS: TAMSULOSIN 0.4 MG CAPSULE PO SCH (09:47)
[2016-09-08] MEDS: CLOPIDOGREL 75 MG TABLET PO SCH (09:47)
[2016-09-08] MEDS: DOCUSATE SODIUM 100 MG CAPSULE PO SCH ×2 (09:47→21:22)
[2016-09-08] MEDS: TOLTERODINE LA 2 MG CAPSULE PO SCH (09:47)
[2016-09-08] MEDS: GABAPENTIN 100 MG CAPSULE PO SCH ×3 (09:47→21:22)
[2016-09-08] MEDS: PANTOPRAZOLE 40 MG TABLET PO SCH (09:47)
[2016-09-08] MEDS: sitaGLIPtin 25 MG TABLET PO SCH (09:48)
--- NOTE | 2016-09-08 11:10 | Event Note ---
General Surgery Progress Note Chief complaint This patient is a 71-year-old man admitted with recurrent abscess right lower quadrant metastases failed percutaneous drain is on multiple attempts and was taken to the operating room for incision and drainage of abdominal abscess with Marycarmen drain placement on 09/03/2016 Interval history No events over the weekend. Cultures have grown Klebsiella, staph, and enterococcus. Physical exam The patient is afebrile with normal vital signs His wound was not packed adequately at either the umbilical site or the right lower quadrant site. Wound VAC was placed over the right lower quadrant wound and the [place] drain was removed. Labs Reviewed Imaging None Assessment and plan Initiate irrigating wound VAC Continue IV antibiotics Plan for repeat CT scan on Thursday
[2016-09-08] MEDS: INSULIN LISPRO 100 UNIT/ML SUBCUT SCH ×6 (11:59→22:24)
[2016-09-08] MEDS: CIPROFLOXACIN INJ 400 MG in PREMIX 1 EACH IV SCH ×2 (12:29→23:08)
[2016-09-08] MEDS: VANCOMYCIN INJ 1,250 MG in SODIUM CHLORIDE 0.9% 250 ML IV SCH (14:18)
[2016-09-08] MEDS: METOPROLOL TARTRATE 100 MG TABLET PO SCH (21:22)
[2016-09-08] MEDS: DONEPEZIL 10 MG TABLET PO SCH (21:22)
[2016-09-08] MEDS: INSULIN GLARGINE 100 UNIT/ML SUBCUT SCH (21:23)
[2016-09-09] MEDS: VANCOMYCIN INJ 1,250 MG in SODIUM CHLORIDE 0.9% 250 ML IV SCH ×2 (00:30→12:35)
[2016-09-09] MEDS: INSULIN LISPRO 100 UNIT/ML SUBCUT SCH ×7 (07:33→21:36)
[2016-09-09] MEDS: TOLTERODINE LA 2 MG CAPSULE PO SCH (10:35)
[2016-09-09] MEDS: DOCUSATE SODIUM 100 MG CAPSULE PO SCH ×2 (10:35→21:35)
[2016-09-09] MEDS: PANTOPRAZOLE 40 MG TABLET PO SCH (10:35)
[2016-09-09] MEDS: LOSARTAN 50 MG TABLET PO SCH (10:36)
[2016-09-09] MEDS: sitaGLIPtin 25 MG TABLET PO SCH (10:36)
[2016-09-09] MEDS: SODIUM HYPOCHLORITE 0.25% IRRIG 473 ML BOTTLE IRRIG SCH (10:36)
[2016-09-09] MEDS: TAMSULOSIN 0.4 MG CAPSULE PO SCH (10:36)
[2016-09-09] MEDS: CLOPIDOGREL 75 MG TABLET PO SCH (10:36)
[2016-09-09] MEDS: GABAPENTIN 100 MG CAPSULE PO SCH ×3 (10:36→21:35)
--- NOTE | 2016-09-09 11:45 | Event Note ---
General Surgery Progress Note Chief complaint This patient is a 71-year-old man admitted with recurrent abscess right lower quadrant metastases failed percutaneous drain is on multiple attempts and was taken to the operating room for incision and drainage of abdominal abscess with Marycarmen drain placement on 09/03/2016 Interval history No events overnight. Patient had a wound VAC placed yesterday. Afebrile. Physical exam The patient is afebrile with normal vital signs Wound VAC is functioning well Labs Reviewed Imaging None Assessment and plan Continue irrigating wound VAC Continue IV antibiotics Plan for repeat CT scan tomorrow
[2016-09-09] MEDS: CIPROFLOXACIN INJ 400 MG in PREMIX 1 EACH IV SCH ×2 (12:48→23:12)
[2016-09-09] MEDS: ENOXAPARIN 40 MG/0.4 ML SYRINGE SUBCUT SCH (12:49)
[2016-09-09] MEDS: DONEPEZIL 10 MG TABLET PO SCH (21:35)
[2016-09-09] MEDS: METOPROLOL TARTRATE 100 MG TABLET PO SCH (21:35)
[2016-09-09] MEDS: INSULIN GLARGINE 100 UNIT/ML SUBCUT SCH (21:36)
[2016-09-10] MEDS: VANCOMYCIN INJ 1,250 MG in SODIUM CHLORIDE 0.9% 250 ML IV SCH (01:53)
--- NOTE | 2016-09-10 08:59 | CT Report ---
History: Abdominal abscess Date: 09/10/2016 Study: CT abdomen and pelvis with and without IV contrast Comparison exam: Postcontrast CT abdomen and pelvis August 18, 2016. Limited noncontrast CT abdomen and pelvis August 27, 2016 Technique: Spiral CT sections were obtained from the lung bases to the pubic symphysis following oral contrast and before and after 100 mL Omnipaque [address] exam was performed using one or more of the following dose reduction techniques: Automated exposure control, adjustment of the mA and/or kV according to patient size, or use of iterative reconstruction technique. CT abdomen: There is some mild strandy subsegmental atelectasis in the dependent portion of either lower lobe. There is no gross pleural effusion. There is no evidence of free air in the abdomen. Pacemaker leads are noted in the partially visualized lower chest. There is minimal nonencapsulated perihepatic free fluid. Other than occasional scattered calcified granulomata, the liver and spleen are unremarkable. The pancreas is atrophic with moderate diffuse fatty infiltration. There are some pancreatic head calcifications compatible with changes of chronic pancreatitis. There is no biliary dilatation. The fluid-filled gallbladder is unremarkable. There is renal excretion without hydronephrosis. The kidneys are normal aside from a 10 mm simple cyst in the mid right kidney. There is moderate calcification of the wall of the abdominal aorta. A previous percutaneous pigtail drainage catheter positioned in the right lower abdomen has been removed since August 27, 2016. There is a residual confined fluid collection containing some gas density bubbles compatible with abscess formation in the right lower abdomen, predominantly within the abdominal wall musculature and deep fat. There is also potential communication with an area of fat necrosis in the right mid abdomen anteriorly as well. The abscess overall is slightly decreased in size compared to the August 27, 2016 study. The largest fluid filled pocket within the right lower quadrant musculature measures 52 x 20 mm dimensions on image 98, as compared to 69 x 36 mm on a comparable image from August 27, 2016. There is a large amount of retained stool in the colon, suggesting constipation. CT pelvis: There is no pelvic mass or abnormal pelvic fluid collection. Impression: Interval removal of the percutaneous pigtail drainage catheter from the right lower quadrant since August 27, 2016. Persistent multilocular abscess in the right lower abdomen, primarily within the right lower abdominal wall, though this is decreased in size compared to August 27, 2016 No significant interval changes otherwise. Other nonacute findings discussed above PROCEDURE INTERPRETED AT [facility] DEPARTMENT OF RADIOLOGY Final Report Signed by: Dr. Becca Jimenez
[2016-09-10] MEDS: LOSARTAN 50 MG TABLET PO SCH (09:56)
[2016-09-10] MEDS: sitaGLIPtin 25 MG TABLET PO SCH (09:56)
[2016-09-10] MEDS: TAMSULOSIN 0.4 MG CAPSULE PO SCH (09:56)
[2016-09-10] MEDS: GABAPENTIN 100 MG CAPSULE PO SCH ×3 (09:57→21:30)
[2016-09-10] MEDS: PANTOPRAZOLE 40 MG TABLET PO SCH (09:57)
[2016-09-10] MEDS: SODIUM HYPOCHLORITE 0.25% IRRIG 473 ML BOTTLE IRRIG SCH (09:57)
[2016-09-10] MEDS: DOCUSATE SODIUM 100 MG CAPSULE PO SCH ×2 (09:57→21:30)
[2016-09-10] MEDS: TOLTERODINE LA 2 MG CAPSULE PO SCH (09:57)
[2016-09-10] MEDS: CLOPIDOGREL 75 MG TABLET PO SCH (09:57)
[2016-09-10] MEDS: INSULIN LISPRO 100 UNIT/ML SUBCUT SCH ×7 (10:07→21:31)
--- NOTE | 2016-09-10 10:47 | Event Note ---
General Surgery Progress Note Chief complaint This patient is a 71-year-old man admitted with recurrent abscess right lower quadrant metastases failed percutaneous drain is on multiple attempts and was taken to the operating room for incision and drainage of abdominal abscess with Marycarmen drain placement on 09/03/2016 Interval history No events overnight. Afebrile. Physical exam The patient is afebrile with normal vital signs Wound VAC is functioning well but still has some purulent fluid in it. Labs Reviewed Imaging CT scan shows significant residual abscess is not draining adequately. Assessment and plan The patient will be taken back to the operating room tomorrow for repeat drainage with wider incision to control this abscess. Continue antibiotic
[2016-09-10] MEDS: CIPROFLOXACIN INJ 400 MG in PREMIX 1 EACH IV SCH ×2 (11:59→23:50)
[2016-09-10] MEDS: ENOXAPARIN 40 MG/0.4 ML SYRINGE SUBCUT SCH (11:59)
[2016-09-10] MEDS: ACETAMINOPHEN 325 MG TABLET PO PRN (19:54)
[2016-09-10] MEDS: DONEPEZIL 10 MG TABLET PO SCH (21:30)
[2016-09-10] MEDS: METOPROLOL TARTRATE 100 MG TABLET PO SCH (21:30)
[2016-09-10] MEDS: INSULIN GLARGINE 100 UNIT/ML SUBCUT SCH (21:32)
[2016-09-11 07:26] LABS: Basophils % 0.4 % (0.0-0.8); Eosinophils % 0.3 % (0.00-10.9); Hematocrit 28.3 VOL% (42.0-52.0); Hemoglobin 8.9 GM/DL (14.0-18.0); Immature Granulocytes % 0.5 %; Immature Granulocytes Absolute 0.04 #; Lymphocytes # 0.6 10*3/uL (1.4-4.0); Lymphocytes % 7.9 % (21.2-54.2); Mean Corpuscular HGB Conc 31.4 GM/DL (32-36); Mean Corpuscular Hemoglobin 28 PG (27-34); Mean Corpuscular Volume 88.7 FL (87-102); Monocytes # 0.5 10*3/uL (0.11-0.8); Monocytes % 7.2 % (1.7-12.7); Neutrophils # 6.2 10*3/uL (1.4-7.4); Neutrophils % 83.7 % (38.7-73.9); Platelet Count 293 T/CUMM (130-400); Red Blood Count 3.19 MC/CUMM (3.8-5.5); Red Cell Distribution Width 15.9 % (9.3-17.3); White Blood Count 7.5 T/CUMM (4-12)
[2016-09-11 07:51] LABS: Calcium 8.2 MG/DL (8.5-10.1); Osmolality,Calculated 280.8 MOS/KG (273-304); Potassium 4.2 MMOL/L (3.5-5.1)
[2016-09-11] MEDS: TAMSULOSIN 0.4 MG CAPSULE PO SCH (09:10)
[2016-09-11] MEDS: GABAPENTIN 100 MG CAPSULE PO SCH ×3 (09:10→20:34)
[2016-09-11] MEDS: INSULIN LISPRO 100 UNIT/ML SUBCUT SCH ×7 (09:10→20:34)
[2016-09-11] MEDS: TOLTERODINE LA 2 MG CAPSULE PO SCH (09:10)
[2016-09-11] MEDS: DOCUSATE SODIUM 100 MG CAPSULE PO SCH ×2 (09:10→20:34)
[2016-09-11] MEDS: LOSARTAN 50 MG TABLET PO SCH (09:10)
[2016-09-11] MEDS: sitaGLIPtin 25 MG TABLET PO SCH (09:10)
[2016-09-11] MEDS: PANTOPRAZOLE 40 MG TABLET PO SCH (09:11)
[2016-09-11] MEDS: CLOPIDOGREL 75 MG TABLET PO SCH (09:11)
[2016-09-11] MEDS ORDERED: BUPIVACAINE MPF 0.25% /EPI 30 ML VIAL ONE (09:12)
[2016-09-11] MEDS ORDERED: DEXAMETHASONE 10 MG/1 ML VIAL ONE (10:50)
[2016-09-11] MEDS ORDERED: PHENYLEPHRINE 1 MG/10 ML SYRINGE IV ONE (10:50)
[2016-09-11] MEDS ORDERED: ONDANSETRON 4 MG/2 ML VIAL ONE (10:50)
[2016-09-11] MEDS ORDERED: PROPOFOL 200 MG/20 ML VIAL IV ONE (10:50)
[2016-09-11] MEDS ORDERED: LIDOCAINE 2% 5 ML VIAL ONE (10:50)
[2016-09-11] MEDS ORDERED: KETOROLAC 30 MG/1 ML VIAL ONE (10:50)
[2016-09-11] MEDS ORDERED: DEXTROSE 50% 25 GM/50 ML VIAL IV ONE (10:52)
--- NOTE | 2016-09-11 12:30 | Operative Note ---
Date of procedure: 09/11/16 Procedure: I was asked by Dr. Lagos to assist with evaluation and treatment of Mr. Askew stays multifocal abscesses. I did join the case and assisted him he will dictate the discharge is Surgeon / Physician: Anuj Marx Results - Labs CBC & BMP: 09/11/16 06:26 09/11/16 06:25 Discharge Plan - Discharge Medications No Action Tolterodine LA [Detrol LA] 2 mg PO DAILY Donepezil [Aricept] 10 mg PO BEDTIME Pantoprazole Tab [Protonix Tab] 40 mg PO DAILY Losartan [Cozaar] 50 mg PO DAILY Tamsulosin [Flomax] 0.4 mg PO DAILY Clopidogrel [Plavix] 75 mg PO DAILY Saxagliptin HCl [Onglyza] 2.5 mg PO DAILY Menthol [Menthol Gel] 1 applic TOP TID PRN PRN Reason: MUSCLE ACHE/PAIN Alcohol Antiseptic Pads [Alcohol Pads] 1 each TP TID Hydrocortisone 1% Cream 1 applic TOP BID Albuterol Inhaler [Proventil Inhaler] 2 puff INH Q6H PRN #20 inhaler PRN Reason: Shortness Of Breath/Wheezing Docusate Sodium [Colace] 100 mg PO BID Acetaminophen 500 mg PO Q4-6H Gabapentin Cap/Tab [Neurontin Cap/Tab] 100 mg PO TID Metoprolol Tartrate 100 mg PO BEDTIME Insulin Aspart [NovoLOG FlexPen] 7 unit SUBCUT TID W/MEALS Insulin Detemir [Levemir FlexPen] 50 unit SUBCUT BEDTIME Diclofenac 1% Gel [Voltaren 1% Gel] 1 applic TOP QID Zolpidem [Ambien] 5 mg PO BEDTIME PRN PRN Reason: Sleep - Follow Up or Referral - Forms/Instructions
--- NOTE | 2016-09-11 12:48 | Anesthesia Post-Op ---
Anesthesia Post OP - Post Ansesthetic Evaluation Patient seen in post op: Yes Resp: within normal limits CV: within normal limits Mental: within normal limits Temp: within normal limits [id number]: within normal limits Nausea and Vomiting: within normal limits Pain: within normal limits
[2016-09-11] MEDS ORDERED: SEVOFLURANE 1 UNIT/15 MINUTE INH ONE (12:51)
[2016-09-11] MEDS ORDERED: ePHEDrine 50 MG/ML AMP ONE (12:51)
[2016-09-11] MEDS ORDERED: fentaNYL 100 MCG/2 ML VIAL ONE (12:51)
[2016-09-11] MEDS ORDERED: MIDAZOLAM 2 MG/2 ML VIAL ONE (12:51)
[2016-09-11] MEDS: ENOXAPARIN 40 MG/0.4 ML SYRINGE SUBCUT SCH (12:52)
[2016-09-11] MEDS ORDERED: LACTATED RINGERS 1,000 ML IV ONE (12:52)
[2016-09-11] MEDS: SODIUM HYPOCHLORITE 0.25% IRRIG 473 ML BOTTLE IRRIG SCH (12:52)
[2016-09-11] MEDS ORDERED: HYDROmorphone 2 MG/1 ML VIAL IV PRN (12:57)
[2016-09-11] MEDS ORDERED: ONDANSETRON 4 MG/2 ML VIAL IV PRN (12:57)
--- NOTE | 2016-09-11 12:59 | Operative Note ---
Date of procedure: 09/11/16 Pre-op diagnosis: Complex intra-abdominal and abdominal wall abscess Post-op diagnosis: same Procedure: Preoperative diagnosis Complex intra-abdominal and abdominal wall abscess Postoperative diagnosis Same Procedures performed Incision and drainage of intra-abdominal abscess and abdominal wall abscess and placement of [place] and sump drains Findings There is an abdominal wall abscess present but also an intra-abdominal abscess that was drained through a counterincision in the right upper quadrant. A large amount of pus was evacuated and a sump drain and Marycarmen drains were placed. Complications None apparent Specimen Cultures from intra-abdominal abscess were sent to the lab Blood loss Minimal Anesthesia General LMA Indications Recurrent complex intra-abdominal and abdominal wall abscess with failed percutaneous drainage Description of procedure The patient was taken to the operating room and transferred to the operating table in the supine position. Pressure points were padded and SCDs were placed lower extremities. General anesthesia was administered with an LMA. The patient was prepped with Betadine and draped sterilely. Preoperative antibiotics were administered in the form. The existing wound in the right lower quadrant was extended and electrocautery was used to dissected the subcutaneous tissues. The abscess cavity was again entered at this location but there appeared to be a deeper abscess cavity within the abdominal cavity and this was not able to be drained through the same incision. A counterincision was made in the right upper quadrant with a scalpel and Bovie electrocautery was used to dissected the abscess cavity. The abscess cavity was opened and drained a large amount of white pus was removed and cultured and sent to lab the 2 cavities were connected with [place] drains with some drain was placed. The cavities were irrigated out copiously until effluent was clear. The wound was covered after the sump drain was sewn in with 2-0 nylon. He was covered with an ABD pad. Patient was awakened from anesthesia and transferred to recovery. Postoperative plan Begin irrigation through some drainage. Anesthesia: GETA Surgeon / Physician: Jose Lagos Estimated blood loss: minimal Specimens: other (cultures) Condition: stable Disposition: PACU Results - Labs CBC & BMP: 09/11/16 06:26 09/11/16 06:25 Discharge Plan - Discharge Medications No Action Tolterodine LA [Detrol LA] 2 mg PO DAILY Donepezil [Aricept] 10 mg PO BEDTIME Pantoprazole Tab [Protonix Tab] 40 mg PO DAILY Losartan [Cozaar] 50 mg PO DAILY Tamsulosin [Flomax] 0.4 mg PO DAILY Clopidogrel [Plavix] 75 mg PO DAILY Saxagliptin HCl [Onglyza] 2.5 mg PO DAILY Menthol [Menthol Gel] 1 applic TOP TID PRN PRN Reason: MUSCLE ACHE/PAIN Alcohol Antiseptic Pads [Alcohol Pads] 1 each TP TID Hydrocortisone 1% Cream 1 applic TOP BID Albuterol Inhaler [Proventil Inhaler] 2 puff INH Q6H PRN #20 inhaler PRN Reason: Shortness Of Breath/Wheezing Docusate Sodium [Colace] 100 mg PO BID Acetaminophen 500 mg PO Q4-6H Gabapentin Cap/Tab [Neurontin Cap/Tab] 100 mg PO TID Metoprolol Tartrate 100 mg PO BEDTIME Insulin Aspart [NovoLOG FlexPen] 7 unit SUBCUT TID W/MEALS Insulin Detemir [Levemir FlexPen] 50 unit SUBCUT BEDTIME Diclofenac 1% Gel [Voltaren 1% Gel] 1 applic TOP QID Zolpidem [Ambien] 5 mg PO BEDTIME PRN PRN Reason: Sleep - Follow Up or Referral - Forms/Instructions
[2016-09-11] MEDS: CIPROFLOXACIN INJ 400 MG in PREMIX 1 EACH IV SCH ×2 (14:18→22:48)
[2016-09-11] MEDS: METOPROLOL TARTRATE 100 MG TABLET PO SCH (20:34)
[2016-09-11] MEDS: DONEPEZIL 10 MG TABLET PO SCH (20:34)
[2016-09-11] MEDS: INSULIN GLARGINE 100 UNIT/ML SUBCUT SCH (20:35)
[2016-09-11] MEDS: HYDROmorphone 2 MG/1 ML VIAL IV PRN (20:37)
[2016-09-12 08:03] LABS: Basophils % 0.1 % (0.0-0.8); Eosinophils % 0.1 % (0.00-10.9); Hematocrit 27.5 VOL% (42.0-52.0); Hemoglobin 8.5 GM/DL (14.0-18.0); Immature Granulocytes % 0.6 %; Immature Granulocytes Absolute 0.08 #; Lymphocytes # 1.2 10*3/uL (1.4-4.0); Lymphocytes % 8.7 % (21.2-54.2); Mean Corpuscular HGB Conc 30.9 GM/DL (32-36); Mean Corpuscular Hemoglobin 28 PG (27-34); Mean Corpuscular Volume 89.3 FL (87-102); Mean Platelet Volume 10.1 FL (9.6-12.0); Monocytes # 0.8 10*3/uL (0.11-0.8); Monocytes % 6.3 % (1.7-12.7); Neutrophils # 11.3 10*3/uL (1.4-7.4); Neutrophils % 84.2 % (38.7-73.9); Platelet Count 249 T/CUMM (130-400); Red Blood Count 3.08 MC/CUMM (3.8-5.5); Red Cell Distribution Width 16.5 % (9.3-17.3); White Blood Count 13.4 T/CUMM (4-12)
[2016-09-12 08:20] LABS: Calcium 7.8 MG/DL (8.5-10.1); Osmolality,Calculated 277.4 MOS/KG (273-304); Potassium 5.4 MMOL/L (3.5-5.1)
[2016-09-12] MEDS: SODIUM HYPOCHLORITE 0.25% IRRIG 473 ML BOTTLE IRRIG SCH (08:48)
[2016-09-12] MEDS ORDERED: ALBUMIN 25% 25 GM in PREMIX 1 EACH IV STA (09:35)
[2016-09-12] MEDS ORDERED: LACTATED RINGERS 500 ML IV ONE (09:38)
[2016-09-12] MEDS: INSULIN LISPRO 100 UNIT/ML SUBCUT SCH ×7 (10:16→20:56)
[2016-09-12] MEDS: PANTOPRAZOLE 40 MG TABLET PO SCH (10:16)
[2016-09-12] MEDS: TAMSULOSIN 0.4 MG CAPSULE PO SCH (10:16)
[2016-09-12] MEDS: DOCUSATE SODIUM 100 MG CAPSULE PO SCH ×2 (10:16→20:56)
[2016-09-12] MEDS: TOLTERODINE LA 2 MG CAPSULE PO SCH (10:16)
[2016-09-12] MEDS: GABAPENTIN 100 MG CAPSULE PO SCH ×3 (10:16→20:56)
[2016-09-12] MEDS: LOSARTAN 50 MG TABLET PO SCH (10:16)
--- NOTE | 2016-09-12 10:33 | Event Note ---
General Surgery Progress Note Chief complaint This patient is a 71-year-old man admitted with recurrent abscesses of the right lower quadrant abdomen and abdominal wall treated with multiple incision and drainage last one on 09/11/2016 with sump drain placement Interval history No events overnight. The patient's blood pressures a little bit low but his hemoglobin is stable. His creatinine jumped up a little bit. He is pain is well controlled. His cultures have grown gram-negative rods. Physical exam Afebrile. Blood pressure is a little bit low. Wound is a little sleepy at the inferior right lower quadrant wound where the [place] drains are coming out. The drain is working well. Labs Reviewed, white blood cell count is up to 13,000. Hemoglobin is stable Creatinine is up to 1.5 Imaging None new Assessment and plan Continue irrigating some drain with 100 cc of saline every 8 hours and continue suction. We will start packing the right lower quadrant incision with wet-to- dry dressings using Dakin's. Leave Marycarmen drains in sump drain and over the weekend. Repeat lab work tomorrow and administer bolus of albumin and place the patient back on IV fluids. Monitor urine output and labs.
[2016-09-12] MEDS: CLOPIDOGREL 75 MG TABLET PO SCH (11:15)
[2016-09-12] MEDS: sitaGLIPtin 25 MG TABLET PO SCH (11:15)
[2016-09-12] MEDS: SODIUM CHLORIDE 0.9% 1,000 ML IV SCH (13:10)
[2016-09-12] MEDS: CIPROFLOXACIN INJ 400 MG in PREMIX 1 EACH IV SCH ×2 (13:10→23:41)
[2016-09-12] MEDS: HYDROmorphone 2 MG/1 ML VIAL IV PRN ×2 (13:11→21:25)
[2016-09-12] MEDS: ENOXAPARIN 40 MG/0.4 ML SYRINGE SUBCUT SCH (13:13)
[2016-09-12] MEDS: INSULIN GLARGINE 100 UNIT/ML SUBCUT SCH (20:55)
[2016-09-12] MEDS: DONEPEZIL 10 MG TABLET PO SCH (20:56)
[2016-09-12] MEDS: METOPROLOL TARTRATE 100 MG TABLET PO SCH (20:56)
[2016-09-13] MEDS: SODIUM CHLORIDE 0.9% 1,000 ML IV SCH ×3 (03:43→17:05)
[2016-09-13] MEDS: HYDROmorphone 2 MG/1 ML VIAL IV PRN ×3 (03:43→15:57)
[2016-09-13 05:27] LABS: Basophils % 0.1 % (0.0-0.8); Eosinophils % 0.1 % (0.00-10.9); Hematocrit 28.3 VOL% (42.0-52.0); Hemoglobin 8.8 GM/DL (14.0-18.0); Immature Granulocytes % 0.9 %; Immature Granulocytes Absolute 0.16 #; Lymphocytes # 0.7 10*3/uL (1.4-4.0); Lymphocytes % 4.1 % (21.2-54.2); Mean Corpuscular HGB Conc 31.1 GM/DL (32-36); Mean Corpuscular Hemoglobin 28 PG (27-34); Mean Corpuscular Volume 89.6 FL (87-102); Mean Platelet Volume 10.2 FL (9.6-12.0); Monocytes # 0.9 10*3/uL (0.11-0.8); Monocytes % 5.1 % (1.7-12.7); Neutrophils # 15.7 10*3/uL (1.4-7.4); Neutrophils % 89.7 % (38.7-73.9); Platelet Count 232 T/CUMM (130-400); Red Blood Count 3.16 MC/CUMM (3.8-5.5); Red Cell Distribution Width 16.2 % (9.3-17.3); White Blood Count 17.5 T/CUMM (4-12)
[2016-09-13 05:57] LABS: Lymphocytes 3 % (20-55); Segmented Neutrophils 94 % (50-85); Total Cells Counted 100
[2016-09-13 05:59] LABS: Elliptocytes 1+; Platelet Estimate Normal
[2016-09-13 06:00] LABS: Anisocytosis Slight; Microcytosis Slight
[2016-09-13 06:17] LABS: Calcium 7.8 MG/DL (8.5-10.1); Magnesium 1.7 MG/DL (1.8-2.4); Osmolality,Calculated 275.8 MOS/KG (273-304); Potassium 4.8 MMOL/L (3.5-5.1)
[2016-09-13] MEDS: INSULIN LISPRO 100 UNIT/ML SUBCUT SCH ×7 (08:07→20:21)
[2016-09-13] MEDS: LOSARTAN 50 MG TABLET PO SCH (08:59)
[2016-09-13] MEDS: TAMSULOSIN 0.4 MG CAPSULE PO SCH (09:00)
[2016-09-13] MEDS: GABAPENTIN 100 MG CAPSULE PO SCH ×3 (09:00→20:19)
[2016-09-13] MEDS: sitaGLIPtin 25 MG TABLET PO SCH (09:00)
[2016-09-13] MEDS: TOLTERODINE LA 2 MG CAPSULE PO SCH (09:00)
[2016-09-13] MEDS: DOCUSATE SODIUM 100 MG CAPSULE PO SCH ×2 (09:00→20:20)
[2016-09-13] MEDS: CLOPIDOGREL 75 MG TABLET PO SCH (09:00)
[2016-09-13] MEDS: PANTOPRAZOLE 40 MG TABLET PO SCH (09:00)
[2016-09-13] MEDS: SODIUM HYPOCHLORITE 0.25% IRRIG 473 ML BOTTLE IRRIG SCH (09:00)
--- NOTE | 2016-09-13 10:05 | Event Note ---
09/13/2016 Patient is afebrile right now but had a low-grade temp last night. Some drainage is difficult for me to really tell how much recorded if anything gets moderate drainage. His hematocrits 28 but his white count is up to 17,000 today. His other abdominal wounds look clean and dry with good granulating tissue present. Will maintain present treatment.
[2016-09-13] MEDS: ENOXAPARIN 40 MG/0.4 ML SYRINGE SUBCUT SCH (11:45)
[2016-09-13] MEDS: CIPROFLOXACIN INJ 400 MG in PREMIX 1 EACH IV SCH (11:45)
[2016-09-13] MEDS: METOPROLOL TARTRATE 100 MG TABLET PO SCH (20:20)
[2016-09-13] MEDS: INSULIN GLARGINE 100 UNIT/ML SUBCUT SCH (20:20)
[2016-09-13] MEDS: DONEPEZIL 10 MG TABLET PO SCH (20:20)
[2016-09-14] MEDS: CIPROFLOXACIN INJ 400 MG in PREMIX 1 EACH IV SCH ×3 (00:08→23:26)
[2016-09-14] MEDS: HYDROmorphone 2 MG/1 ML VIAL IV PRN ×2 (05:13→15:15)
[2016-09-14] MEDS: SODIUM CHLORIDE 0.9% 1,000 ML IV SCH ×2 (05:13→22:29)
[2016-09-14] MEDS: TOLTERODINE LA 2 MG CAPSULE PO SCH (08:53)
[2016-09-14] MEDS: GABAPENTIN 100 MG CAPSULE PO SCH ×3 (08:54→20:27)
[2016-09-14] MEDS: CLOPIDOGREL 75 MG TABLET PO SCH (08:54)
[2016-09-14] MEDS: sitaGLIPtin 25 MG TABLET PO SCH (08:54)
[2016-09-14] MEDS: LOSARTAN 50 MG TABLET PO SCH (08:54)
[2016-09-14] MEDS: TAMSULOSIN 0.4 MG CAPSULE PO SCH (08:54)
[2016-09-14] MEDS: PANTOPRAZOLE 40 MG TABLET PO SCH (08:54)
[2016-09-14] MEDS: INSULIN LISPRO 100 UNIT/ML SUBCUT SCH ×7 (08:54→20:27)
[2016-09-14] MEDS: DOCUSATE SODIUM 100 MG CAPSULE PO SCH ×2 (08:54→20:27)
[2016-09-14] MEDS: SODIUM HYPOCHLORITE 0.25% IRRIG 473 ML BOTTLE IRRIG SCH (08:55)
--- NOTE | 2016-09-14 11:14 | Event Note ---
09/14/2016. Patient generally is doing well although he does complain of having some episodes of pain from time to time which I cannot pin down to gas pains or to musculoskeletal discomfort. His wounds look clean and his sump drainage is difficult to really tell how much is draining although is described as not a great deal at this time. There is some drainage around the sump onto the dressing but otherwise looks fairly clear. Generally he seems to be doing well tolerating his diet having bowel movements at this point. Will maintain present level of care
[2016-09-14] MEDS: ENOXAPARIN 40 MG/0.4 ML SYRINGE SUBCUT SCH (13:04)
[2016-09-14] MEDS: DONEPEZIL 10 MG TABLET PO SCH (20:27)
[2016-09-14] MEDS: METOPROLOL TARTRATE 100 MG TABLET PO SCH (20:27)
[2016-09-14] MEDS: INSULIN GLARGINE 100 UNIT/ML SUBCUT SCH (20:45)
[2016-09-14] MEDS: ACETAMINOPHEN 325 MG TABLET PO PRN (23:03)
[2016-09-15] MEDS: HYDROmorphone 2 MG/1 ML VIAL IV PRN (00:34)
[2016-09-15] MEDS: SODIUM CHLORIDE 0.9% 1,000 ML IV SCH ×3 (05:35→22:34)
--- NOTE | 2016-09-15 07:39 | Event Note ---
General Surgery Progress Note Chief complaint This patient is a 71-year-old man admitted with recurrent abscesses of the right lower quadrant abdomen and abdominal wall treated with multiple incision and drainage last one on 09/11/2016 with sump drain placement Interval history There were no significant events over the weekend. The patient is having some abdominal pain. His vital signs are normal. Physical exam Afebrile. Normal vital signs Abdominal exam reveals drains in appropriate position. Wounds were repacked. Labs Pending today Imaging None new Assessment and plan Continue irrigations for drainage system and packing twice a day on the right lower quadrant wound. Continue packing once a day on the umbilical wound. We will repeat a CT scan on Thursday Follow-up labs today
[2016-09-15 07:41] LABS: Basophils % 0.1 % (0.0-0.8); Eosinophils # 0.1 10*3/uL (0.0-0.87); Eosinophils % 0.8 % (0.00-10.9); Hematocrit 24.1 VOL% (42.0-52.0); Hemoglobin 7.5 GM/DL (14.0-18.0); Immature Granulocytes % 0.7 %; Immature Granulocytes Absolute 0.07 #; Lymphocytes # 0.9 10*3/uL (1.4-4.0); Lymphocytes % 8.8 % (21.2-54.2); Mean Corpuscular HGB Conc 31.1 GM/DL (32-36); Mean Corpuscular Hemoglobin 28 PG (27-34); Mean Corpuscular Volume 89.6 FL (87-102); Mean Platelet Volume 10.6 FL (9.6-12.0); Monocytes % 9.6 % (1.7-12.7); Neutrophils # 8.6 10*3/uL (1.4-7.4); Platelet Count 182 T/CUMM (130-400); Red Blood Count 2.69 MC/CUMM (3.8-5.5); White Blood Count 10.7 T/CUMM (4-12)
[2016-09-15 08:12] LABS: Calcium 7.8 MG/DL (8.5-10.1); Magnesium 1.8 MG/DL (1.8-2.4); Osmolality,Calculated 280.3 MOS/KG (273-304); Potassium 4.4 MMOL/L (3.5-5.1)
[2016-09-15] MEDS: INSULIN LISPRO 100 UNIT/ML SUBCUT SCH ×7 (08:20→20:54)
[2016-09-15] MEDS: TOLTERODINE LA 2 MG CAPSULE PO SCH (08:41)
[2016-09-15] MEDS: LOSARTAN 50 MG TABLET PO SCH (08:41)
[2016-09-15] MEDS: sitaGLIPtin 25 MG TABLET PO SCH (08:42)
[2016-09-15] MEDS: PANTOPRAZOLE 40 MG TABLET PO SCH (08:42)
[2016-09-15] MEDS: DOCUSATE SODIUM 100 MG CAPSULE PO SCH ×2 (08:42→20:50)
[2016-09-15] MEDS: CLOPIDOGREL 75 MG TABLET PO SCH (08:42)
[2016-09-15] MEDS: SODIUM HYPOCHLORITE 0.25% IRRIG 473 ML BOTTLE IRRIG SCH (08:42)
[2016-09-15] MEDS: TAMSULOSIN 0.4 MG CAPSULE PO SCH (08:42)
[2016-09-15] MEDS: GABAPENTIN 100 MG CAPSULE PO SCH ×3 (08:42→20:50)
[2016-09-15] MEDS: ENOXAPARIN 40 MG/0.4 ML SYRINGE SUBCUT SCH (11:10)
[2016-09-15] MEDS: CIPROFLOXACIN INJ 400 MG in PREMIX 1 EACH IV SCH ×2 (11:10→22:34)
[2016-09-15] MEDS: DONEPEZIL 10 MG TABLET PO SCH (20:50)
[2016-09-15] MEDS: METOPROLOL TARTRATE 100 MG TABLET PO SCH (20:50)
[2016-09-15] MEDS: INSULIN GLARGINE 100 UNIT/ML SUBCUT SCH (20:57)
--- NOTE | 2016-09-16 03:45 | EKG Report ---
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
--- NOTE | 2016-09-16 07:26 | Event Note ---
General Surgery Progress Note Chief complaint This patient is a 71-year-old man admitted with recurrent abscesses of the right lower quadrant abdomen and abdominal wall treated with multiple incision and drainage last one on 09/11/2016 with sump drain placement Interval history The patient developed a 30 minute episode of substernal pressure-like chest pain with no radiation but has some nausea with it last night. An EKG showed no ST changes. The patient also had some problems with his drain but it has resolved this morning. He is not having any chest pain this morning. I reviewed his EKG and does not show any significant ST changes that I can see. Otherwise she seems to be doing well. Physical exam Afebrile. Normal vital signs Abdominal exam reveals drains in appropriate position. Wounds were repacked. Labs Pending today Imaging None new Assessment and plan Continue irrigations for drainage system and packing twice a day on the right lower quadrant wound. Continue packing once a day on the umbilical wound. We will repeat a CT scan tomorrow I have ordered a set of labs today including a CBC, BMP, and cardiac panel. I have also ordered a type and screen because his last hemoglobin was 7.4 and if he is having anginal symptoms he will probably need transfusion. I have placed a cardiology consult as well to get their input because it sounds like true unstable angina that occurred at rest last night. The patient is a candidate for any sort of anticoagulation that he would need should he require cardiac catheterization.
[2016-09-16] MEDS: INSULIN LISPRO 100 UNIT/ML SUBCUT SCH ×7 (07:40→23:39)
[2016-09-16 08:08] LABS: Basophils % 0.1 % (0.0-0.8); Eosinophils # 0.1 10*3/uL (0.0-0.87); Eosinophils % 0.9 % (0.00-10.9); Hemoglobin 7.1 GM/DL (14.0-18.0); Immature Granulocytes % 0.4 %; Immature Granulocytes Absolute 0.03 #; Lymphocytes # 0.6 10*3/uL (1.4-4.0); Mean Corpuscular HGB Conc 30.9 GM/DL (32-36); Mean Corpuscular Hemoglobin 28 PG (27-34); Mean Corpuscular Volume 91.3 FL (87-102); Mean Platelet Volume 10.6 FL (9.6-12.0); Monocytes # 0.7 10*3/uL (0.11-0.8); Monocytes % 10.6 % (1.7-12.7); Neutrophils # 5.3 10*3/uL (1.4-7.4); Platelet Count 165 T/CUMM (130-400); Red Blood Count 2.52 MC/CUMM (3.8-5.5); Red Cell Distribution Width 16.2 % (9.3-17.3); White Blood Count 6.8 T/CUMM (4-12)
[2016-09-16] MEDS: SODIUM CHLORIDE 0.9% 1,000 ML IV SCH ×2 (08:30→13:32)
[2016-09-16 08:45] LABS: Blood Urea Nitrogen 12 MG/DL (7-18); Calcium 7.4 MG/DL (8.5-10.1); Glucose 146 MG/DL (74-106); Magnesium 1.7 MG/DL (1.8-2.4); Osmolality,Calculated 288.8 MOS/KG (273-304); Potassium 4.1 MMOL/L (3.5-5.1); Sodium 144 MMOL/L (136-145); Troponin I Only < 0.015 NG/ML (0.00-0.045)
[2016-09-16] MEDS: TOLTERODINE LA 2 MG CAPSULE PO SCH (09:08)
[2016-09-16] MEDS: DOCUSATE SODIUM 100 MG CAPSULE PO SCH ×2 (09:09→21:41)
[2016-09-16] MEDS: sitaGLIPtin 25 MG TABLET PO SCH (09:09)
[2016-09-16] MEDS: PANTOPRAZOLE 40 MG TABLET PO SCH (09:09)
[2016-09-16] MEDS: LOSARTAN 50 MG TABLET PO SCH (09:09)
[2016-09-16] MEDS: GABAPENTIN 100 MG CAPSULE PO SCH ×3 (09:09→21:41)
[2016-09-16] MEDS: CLOPIDOGREL 75 MG TABLET PO SCH (09:09)
[2016-09-16] MEDS: SODIUM HYPOCHLORITE 0.25% IRRIG 473 ML BOTTLE IRRIG SCH (09:09)
[2016-09-16] MEDS: TAMSULOSIN 0.4 MG CAPSULE PO SCH (09:09)
[2016-09-16] MEDS ORDERED: SODIUM CHLORIDE 0.9% 250 ML IV PRN (09:28)
[2016-09-16] MEDS: ENOXAPARIN 40 MG/0.4 ML SYRINGE SUBCUT SCH (10:11)
[2016-09-16] MEDS: CIPROFLOXACIN INJ 400 MG in PREMIX 1 EACH IV SCH ×3 (10:14→18:23)
--- NOTE | 2016-09-16 12:18 | EKG Report ---
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
[2016-09-16] MEDS ORDERED: ATORVASTATIN 40 MG TABLET PO SCH (15:00)
--- NOTE | 2016-09-16 15:05 | Cardiology Consult Note ---
Dm Owen Vanessa, RN, am scribing for, and in the presence of, Jose De Jesus Bernabe MD 15:01. Assessment and Plan - Time spent with patient Time spent with patient: Greater than 30 minutes (Due to assessment, planning, documentation, medication review) (1) Chest pain at rest Status: Acute Assessment and plan: 71-year-old NA male with known history of CAD, severe multivessel disease, and is status post coronary artery bypass grafting 3 in July 2008. Recent Cardiolite stress test May 2016 revealed normal LV function, a large moderate to severe fixed perfusion defect and basal to mid inferior and inferolateral schulz but no evidence of reversible ischemia. Echo in May 2016 LV ejection fraction 55% and grade 1 diastolic dysfunction. INITIAL CONSULT SEPTEMBER 16, 2016: ASSESSMENT/PLAN: 1. 71-year-old [place] gentleman with hypertension, dyslipidemia, diabetes, CVA , carotid disease, CAD status post CABG in 2008 status post abscess with drain and colon CA with colectomy, who had chest discomfort for about an hour last night and mild shortness of breath. He had negative troponin this morning essentially ruling out for PA, although he did have some T-wave inversions were new this morning were not present at 3 in the morning. 2. Significant anemia currently receiving packed red blood cell transfusion ( last hematocrit 23%) 3. We will simply continue Plavix and low-dose Lovenox for now; his anemia is normocytic, and there is no apparent bleeding source. 4. Would start high intensity statin, but there is a severe interaction with Cubicin, would restart as soon as possible. 5. EF 55% May 2016 with myocardial scan at that time which showed no ischemia 6. Add Ranexa 5 mg twice daily 7. Will follow with you Current Visit: Yes (2) Abdominal abscess Problem details: s/p partial colectomy in May 2016 with new RLQ pain and palpable mass Status: Acute Current Visit: No (3) Adenocarcinoma of colon Status: Acute Current Visit: No (4) S/P right hemicolectomy Status: Acute Current Visit: No (5) S/P right hemicolectomy Status: Resolved Current Visit: No (6) Hx of coronary artery disease Status: Acute Current Visit: Yes (7) Carotid artery stenosis Status: Chronic Current Visit: No (8) Diabetes mellitus Status: Chronic Current Visit: No Qualifiers: Diabetes mellitus type: type 1 (9) History of CVA (cerebrovascular accident) Status: Chronic Current Visit: No (10) History of cardiac pacemaker in situ Status: Chronic Current Visit: No (11) Hx of CABG Problem details: Underwent coronary artery bypass grafting for multivessel coronary artery disease September 2008. Status: Chronic Current Visit: No (12) Hypertension Status: Chronic Current Visit: No (13) Murmur, cardiac Status: Chronic Current Visit: No History of Present Illness - Data of Consult Patient: known to practice within the last 3 years Consult date: 09/16/16 Requesting Physician: Jose Lagos Primary care physician: [facility] - Consult Narrative Reason for consult: chest pain History of present illness: PRIMARY PATTERN GATER: DR. TRISTIAN BATRES AND IGNACIO CAUSEY PCP: [facility] CARDIOLOGY CONSULT NOTE: CHEST PAIN R/O UNSTABLE ANGINA Mr. Almaraz is a 71 year old male routinely followed by Dr. Batres. Risk factors significant for: Age, diabetes, hypertension, sedentary lifestyle, obesity, and known history of CAD. He is status post CABG in September 2008 , and also dual-chamber pacemaker implant May 2012 for third-degree AV block. Other history includes remote CVA and reportedly hepatitis C, per patient report, but old records do not reflect this. Most recently, he was diagnosed with right colon cancer in May 2016 and underwent right colectomy per Dr. Lagos. Patient was recently evaluated for preoperative cardiovascular clearance after being transferred from [facility] to [facility] for treatment of right lower quadrant abscess, and at that time he had a percutaneous drain placed. He has now presented again with failure of the percutaneous drainage therapy and fever. Patient now status post I&D on 09/11 with sump drain placement. Last night while at rest, patient experienced a 30 minute episode of substernal nonradiating chest pain which was described as a pressure and associated with nausea. EKG showed no acute ST changes. Cardiology has been consulted for further evaluation of chest pain. Noted that he is stable from a surgical standpoint for anticoagulation if cardiac catheterization and/or PCI is required. He underwent cardiac risk stratification prior to surgery in May. Echocardiogram on 05/24/16 with moderate LVH, LV ejection fraction 55%, grade 1 diastolic dysfunction. Mild TR with a PA pressure of 34 mmHg. Also had an Lexiscan Cardiolite stress test on 06/02/16, and this also revealed normal LV function and no evidence of reversible ischemia. There was noted to be large moderate to severe fixed perfusion defect in the basal to mid inferior and inferolateral schulz consistent with previous PA with scar formation. Patient seen and examined. He does not appear to be experiencing any acute distress this time. Patient's is present at bedside with him. Mr. Almaraz reports he has not had any previous episodes of chest pain or anginal complaint until last night. He tells me he was asleep last night and was awakened by sudden onset of chest pressure described as "something sitting on my chest". Admits to associated shortness of breath and possible nausea. No associated diaphoresis. Chest pressure was nonradiating, rated 7/10, and after stat EKG revealed acute ST finding, he was given a [place] 7.5 mg by mouth. Patient reports after receiving pain medication, he feels that his chest pressure was not completely relieved but that pain med more or less "relaxed him" so he was able to sleep. No sublingual nitroglycerin administered. During exam, patient reports he is actually experiencing some chest discomfort at this time at left chest wall and axillary area, described as an ache, and is nonradiating. It is not reproducible during exam. Skin is warm and dry. We will obtain 12-lead EKG for review. Patient's H&H also noted at 7.1 and 23.0. He is currently being transfused with 2 units PRBCs. Negative troponin level this morning. Potassium is 4.1 and magnesium is 1.7. Systolic BP 130-140 mmHg. CC: Jose Lagos MD - Home Medications and Allergies Home Medications: Home Medications Medication Instructions Recorded Confirmed Type Clopidogrel [Plavix] 75 mg PO DAILY 05/24/16 09/02/16 History Donepezil [Aricept] 10 mg PO BEDTIME 05/24/16 09/02/16 History Gabapentin Cap/Tab [Neurontin 100 mg PO TID 05/24/16 09/02/16 History Cap/Tab] Insulin Aspart [NovoLOG FlexPen] 7 unit SUBCUT TID W/MEALS 05/24/16 09/02/16 History Insulin Detemir [Levemir FlexPen] 50 unit SUBCUT BEDTIME 05/24/16 09/02/16 History Losartan [Cozaar] 50 mg PO DAILY 05/24/16 09/02/16 History Metoprolol Tartrate 100 mg PO BEDTIME 05/24/16 09/02/16 History Pantoprazole Tab [Protonix Tab] 40 mg PO DAILY 05/24/16 09/02/16 History Saxagliptin HCl [Onglyza] 2.5 mg PO DAILY 05/24/16 09/02/16 History Tamsulosin [Flomax] 0.4 mg PO DAILY 05/24/16 09/02/16 History Tolterodine LA [Detrol LA] 2 mg PO DAILY 05/24/16 09/02/16 History Alcohol Antiseptic Pads [Alcohol 1 each TP TID 08/07/16 09/02/16 History Pads] Diclofenac 1% Gel [Voltaren 1% Gel] 1 applic TOP QID 08/07/16 09/02/16 History Hydrocortisone 1% Cream 1 applic TOP BID 08/07/16 09/02/16 History Menthol [Menthol Gel] 1 applic TOP TID PRN 08/07/16 09/02/16 History Albuterol Inhaler [Proventil 2 puff INH Q6H PRN #20 inhaler 08/15/16 09/02/16 Rx Inhaler] Acetaminophen 500 mg PO Q4-6H 09/02/16 09/02/16 History Docusate Sodium [Colace] 100 mg PO BID 09/02/16 09/02/16 History Zolpidem [Ambien] 5 mg PO BEDTIME PRN 09/02/16 09/02/16 History Allergies/Adverse Reactions: Allergies Allergy/AdvReac Type Severity Reaction Status Date / Time No Known Allergies Allergy Unverified 05/24/16 00:37 - Constitutional Constitutional: Present: as per HPI - EENT Eyes: Present: as per HPI - Cardiovascular Cardiovascular: Present: as per HPI - Respiratory Respiratory: Present: as per HPI - Gastrointestinal Gastrointestinal: Present: as per HPI - Genitourinary Genitourinary: Present: as per HPI - Musculoskeletal Musculoskeletal: Present: as per HPI - Neurological Neurological: Present: as per HPI - Psychiatric Psychiatric: Present: as per HPI - Endocrine Endocrine: Present: as per HPI - Hematologic/Lymphatic Hematologic/Lymphatic: Present: as per HPI Medical,Surgical,& Family Hx - Medical History Cardio: History of: Cardiac Dysrhythmia, CAD, Hypertension, PA, Pacemaker No history of: Valvular Heart Disease Neurology: History of: Cerebrovascular Accident No history of: Seizures, TIA Endocrine: History of: Diabetes Mellitus (IDDM), Dyslipidemia Respiratory: History of: Intubation No history of: Obstructive Sleep Apnea, Pulmonary Embolism Gastrointestinal: History of: Liver Problems, Gastrointestinal Cancer (recently diagnosed in jun 2016) Musculoskeletal: No history of: Degenerative Disk Disease Hematology: History of: Anemia No history of: Blood Transfusion Reaction Other: History of: Cancer (sees dr allen. newly dx jun 2016) - Surgical History Cardiac Surgeries: Sugical HX of: Cardiac Catheterization, Cardiac Surgery (CABG ) Abdominal Surgeries: Surgical HX of: Abdominal Surgery (colectomey in jun 2016) , Colonoscopy, EGD - Family History Family History: Reports;: Family Diabetes, Family Heart Disease, Family Hypertension, Family Stroke Denies;: Family Anesthesia Reaction, Family Cancer, Family Hematology, Family Psychiatric Problems, Additional Family History - Social History Smoking Status: Never smoker Frequency of Alcohol Use: None Type of Drug Use: None Physical Examination Vital Signs Temp Pulse Resp BP Pulse Ox 99.0 F 77 18 157/62 99 09/02/16 17:46 09/02/16 17:46 09/02/16 17:46 09/02/16 17:46 09/02/16 17:46 General: Present: No Apparent Distress HEENT: Present: PERRL, Normocephaly Neck: Present: Supple Neck, Midline Trachea, No JVD/HJR, Bruit (Right) Cardiac: Present: Reg Rate and Rhythm, Systolic Murmur. Absent: Tachycardia, Bradycardia Lungs: Present: Clear Ascult./Percussion, Oxygen, No Wheeze, Rales, Rhonchi Neuro: Present: Grossly Intact. Absent: Numbness, Resting Tremor, Essential Tremor Abdomen: Present: Soft, Other (Surgical dressing dry/intact, drain noted. Hypoactive bowel sounds.) Skin: Present: Clear. Absent: Rash, Suspicious Lesions Musculoskeletal: Present: No Fluid Collection Extremities: Present: No Clubbing, No Cyanosis, Normal Upper Extr. Pulses (2-3+ bilaterally), Normal Lower Extr. Pulses (2+ bilaterally), Edema (Bilateral lower extremity edema, 2-3+ pitting with right slightly greater than left), Capillary Refill (Normal) Result/EKG - Labs CBC & BMP: 09/16/16 07:32 09/16/16 07:32 Lab Results: I have reviewed the past 24 hour labs Labs: Laboratory Results - last 24 hr 09/15/16 09/15/16 09/15/16 12:03 15:30 19:38 WBC RBC Hgb Hct MCV MCH MCHC RDW Plt Count MPV Neut % (Auto) Lymph % (Auto) [place] % (Auto) Eos % (Auto) Baso % (Auto) Neut # (Auto) Lymph # (Auto) [place] # (Auto) Eos # (Auto) Baso # (Auto) Immature Gran % Nucleated RBC % Immature Gran # Nucleated RBCs # Sodium Potassium Chloride Carbon Dioxide Anion Gap BUN Creatinine GFR Calculation BUN/Creatinine Ratio Glucose POC Glucose 107 H 122 H 120 H Calculated Osmolality Calcium Magnesium Total Creatine Kinase CK-MB (CK-2) Troponin I Blood Type Antibody Screen Crossmatch Blood Bank Comment 09/16/16 09/16/16 09/16/16 07:32 07:32 07:32 WBC 6.8 D RBC 2.52 L Hgb 7.1 L Hct 23.0 L MCV 91.3 MCH 28 MCHC 30.9 L RDW 16.2 Plt Count 165 MPV 10.6 Neut % (Auto) 79.0 H Lymph % (Auto) 9.0 L [place] % (Auto) 10.6 Eos % (Auto) 0.9 Baso % (Auto) 0.1 Neut # (Auto) 5.3 Lymph # (Auto) 0.6 L [place] # (Auto) 0.7 Eos # (Auto) 0.1 Baso # (Auto) 0.0 Immature Gran % 0.4 Nucleated RBC % 0.0 Immature Gran # 0.03 Nucleated RBCs # 0.00 Sodium 144 Potassium 4.1 Chloride 115 H Carbon Dioxide 21 Anion Gap 12.1 BUN 12 Creatinine 1.10 GFR Calculation 78 BUN/Creatinine Ratio 10.00 Glucose 146 H POC Glucose Calculated Osmolality 288.8 Calcium 7.4 L Magnesium 1.7 L Total Creatine Kinase 36 L CK-MB (CK-2) 4.3 H Troponin I < 0.015 Blood Type O POSITIVE Antibody Screen Negative Crossmatch Blood Bank Comment 09/16/16 09/16/16 07:36 09:28 WBC RBC Hgb Hct MCV MCH MCHC RDW Plt Count MPV Neut % (Auto) Lymph % (Auto) [place] % (Auto) Eos % (Auto) Baso % (Auto) Neut # (Auto) Lymph # (Auto) [place] # (Auto) Eos # (Auto) Baso # (Auto) Immature Gran % Nucleated RBC % Immature Gran # Nucleated RBCs # Sodium Potassium Chloride Carbon Dioxide Anion Gap BUN Creatinine GFR Calculation BUN/Creatinine Ratio Glucose POC Glucose 155 H Calculated Osmolality Calcium Magnesium Total Creatine Kinase CK-MB (CK-2) Troponin I Blood Type Cancelled Antibody Screen Cancelled Crossmatch See Detail Blood Bank Comment Cancelled - Diagnostic Findings Procedure: Chest x-ray: image reviewed by me, report reviewed by me - EKG EKG results: interpreted by me, no acute changes EKG shows: sinus rhythm (Atrial paced rhythm) Srinivasa Owen Randall Scott, MD, personally performed the services described in this documentation, ascribed by Crissy Chaidez RN in my presence, and it is both accurate and complete [id number] .
--- NOTE | 2016-09-16 16:01 | Physician Query Form ---
CLICK EDIT DOCUMENT TO SELECT QUERY ANSWER --> OK --> SIGN Kathy Sweeney RN [facility] W) [phone] (f) [phone] [email or web address]: Make your selection(s) from the choices in EACH section by typing an "x" and enter comments in the comment section. Please use your independent medical judgment in providing your response. This request does not imply that any particular answer is desired or expected. CLINICAL INDICATORS: (Providers should not edit this section) Based on documentation of "Significant anemia currently receiving packed red blood cell transfusion (last hematocrit 23%) " "last hemoglobin was 7.4 and if he is having anginal symptoms he will probably need transfusion." Patient had I&D twice this admit. also had rajwinder and sump drains placed. Based on the above, could you clarify which of the following conditions you are evaluating, treating, and/or monitoring? ( ) Blood loss anemia ( ) acute ( ) chronic ( ) acute on chronic (x) Acute blood loss anemia on baseline chronic anemia ( ) Acute blood loss anemia as a complication of a procedure ( ) Iron deficiency anemia not associated with blood loss ( ) Dilutional anemia due to IV fluids ( ) Anemia due to chemotherapy ( ) Anemia due to neoplastic disease ( ) Anemia due to chronic kidney disease ( ) Pernicious anemia ( ) Aplastic anemia ( ) Hemolytic anemia ( ) immune ( ) non-immune - please specify cause: ( ) Anemia due to other condition, please specify: ( ) Clinically unable to determine COMMENTS: Use of terms such as suspected, likely, or probable (associated with a specific diagnosis that is being evaluated, monitored, or treated as if it exists) are acceptable and can be restated in the discharge summary if not ruled out. MTDD
[2016-09-16] MEDS: RANOLAZINE 500 MG TABLET PO SCH ×2 (16:45→21:41)
[2016-09-16 20:16] LABS: Hematocrit 26.1 VOL% (42.0-52.0); Hemoglobin 8.4 GM/DL (14.0-18.0)
[2016-09-16] MEDS: DONEPEZIL 10 MG TABLET PO SCH (21:41)
[2016-09-16] MEDS: HYDROmorphone 2 MG/1 ML VIAL IV PRN (21:42)
[2016-09-16] MEDS: METOPROLOL SUCCINATE XL 50 MG TABLET PO SCH (21:42)
[2016-09-16] MEDS: INSULIN GLARGINE 100 UNIT/ML SUBCUT SCH (23:39)
[2016-09-17] MEDS: SODIUM CHLORIDE 0.9% 1,000 ML IV SCH (00:54)
[2016-09-17] MEDS: HYDROmorphone 2 MG/1 ML VIAL IV PRN (04:30)
[2016-09-17 05:51] LABS: Basophils % 0.3 % (0.0-0.8); Eosinophils # 0.1 10*3/uL (0.0-0.87); Eosinophils % 0.8 % (0.00-10.9); Hematocrit 28.1 VOL% (42.0-52.0); Immature Granulocytes % 0.5 %; Immature Granulocytes Absolute 0.04 #; Lymphocytes # 0.8 10*3/uL (1.4-4.0); Lymphocytes % 10.3 % (21.2-54.2); Mean Corpuscular Hemoglobin 28 PG (27-34); Mean Corpuscular Volume 86.7 FL (87-102); Monocytes # 0.8 10*3/uL (0.11-0.8); Monocytes % 11.4 % (1.7-12.7); Neutrophils # 5.7 10*3/uL (1.4-7.4); Neutrophils % 76.7 % (38.7-73.9); Platelet Count 171 T/CUMM (130-400); Red Blood Count 3.24 MC/CUMM (3.8-5.5); Red Cell Distribution Width 16.7 % (9.3-17.3); White Blood Count 7.4 T/CUMM (4-12)
[2016-09-17 06:52] LABS: Calcium 7.4 MG/DL (8.5-10.1); Osmolality,Calculated 287.7 MOS/KG (273-304)
[2016-09-17] MEDS: CIPROFLOXACIN INJ 400 MG in PREMIX 1 EACH IV SCH ×2 (07:09→21:49)
--- NOTE | 2016-09-17 07:27 | EKG Report ---
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
[2016-09-17] MEDS: INSULIN LISPRO 100 UNIT/ML SUBCUT SCH ×7 (07:52→22:07)
--- NOTE | 2016-09-17 08:21 | Event Note ---
General Surgery Progress Note Chief complaint This patient is a 71-year-old man admitted with recurrent abscesses of the right lower quadrant abdomen and abdominal wall treated with multiple incision and drainage last one on 09/11/2016 with sump drain placement Interval history The patient is doing well today. His repeat CT scan demonstrated resolution of the abscess and there is a small collection that still present but this is likely just the [place] drains that are still in. Patient is tolerating his diet he responded well blood transfusion. He has had no further chest pain and cardiology is following. Physical exam Afebrile. Normal vital signs Abdominal exam reveals drains in appropriate position. Wounds were repacked. The wounds appear clean Labs Responded well to blood transfusion White blood cell count is normal Imaging None new Assessment and plan The patient can be transferred to [facility] once a bed is available Continue antibiotics and wound care
[2016-09-17] MEDS: TAMSULOSIN 0.4 MG CAPSULE PO SCH (08:22)
[2016-09-17] MEDS: TOLTERODINE LA 2 MG CAPSULE PO SCH (08:22)
[2016-09-17] MEDS: PANTOPRAZOLE 40 MG TABLET PO SCH (08:22)
[2016-09-17] MEDS: RANOLAZINE 500 MG TABLET PO SCH ×2 (08:22→21:51)
[2016-09-17] MEDS: GABAPENTIN 100 MG CAPSULE PO SCH ×3 (08:22→21:51)
[2016-09-17] MEDS: DOCUSATE SODIUM 100 MG CAPSULE PO SCH ×2 (08:22→22:07)
[2016-09-17] MEDS: CLOPIDOGREL 75 MG TABLET PO SCH (08:22)
[2016-09-17] MEDS: LOSARTAN 50 MG TABLET PO SCH (08:22)
[2016-09-17] MEDS: sitaGLIPtin 25 MG TABLET PO SCH (08:22)
[2016-09-17] MEDS: SODIUM HYPOCHLORITE 0.25% IRRIG 473 ML BOTTLE IRRIG SCH (08:22)
[2016-09-17] MEDS: METOPROLOL SUCCINATE XL 50 MG TABLET PO SCH ×2 (08:22→21:51)
--- NOTE | 2016-09-17 08:28 | CT Report ---
CT abdomen pelvis w con Indication: Follow-up abdominal abscess Comparison: CT abdomen pelvis dated September 10, 2016 Technique: Multiple axial tomographic images of the abdomen and pelvis were obtained after the administration of 100 cc Omnipaque 350 intravenous contrast. Findings: [id number]-up-[id number] atelectasis within the bilateral lung bases. Underlying infection would be difficult to exclude. There is trace bilateral pleural fluid. There is trace right perihepatic fluid with small air noted along the anterior aspect of the liver. Granulomatous calcifications of the liver present. Mild to moderate distention of the gallbladder. Significant atrophic change of the pancreas. Granulomatous calcification of the spleen. Bilateral adrenal glands and kidneys appear grossly unchanged. Bilateral renal atrophic change. Urinary bladder appears grossly unchanged. Coarse calcification of the prostate. No evidence of gastrointestinal obstruction. Small fluid noted along the right paracolic gutter. There is a small rim-enhancing fluid collection within the rectovesicle pouch measuring up to 5.2 x 4.3 cm in largest axial dimensions. Interval placement of drainage catheter within the previously described right anterior abdominal abscess which has significantly decreased in size and now measures approximately 4.8 x 1.7 x 9.8 cm in width, AP, and craniocaudad dimensions respectively compared to 6.7 x 5.0 x 15.2 cm on comparison study when measured in similar fashion. There is an open wound more inferiorly which connects with this fluid collection within the anterior abdominal wall suggesting recent surgical procedure. Edema noted throughout the bilateral lateral abdominal wall, greater on the right which could reflect cellulitis. Atherosclerotic calcifications present. Osseous structures appear unchanged. IMPRESSION: Interval placement of percutaneous drain within right abdominal abscess which is smaller in size. There is also an open wound along the inferior aspect of the abscess suggesting recent surgical procedure. Small fluid is noted along the liver as well as along the right paracolic gutter with small air noted anterior to the liver. There is a rim-enhancing fluid collection within the pelvis which measures up to 5.2 x 4.3 cm in largest axial dimensions suggestive of abscess. There is lateral abdominal wall edema which may reflect cellulitis. Other detailed findings as above. The CT exam was performed using one or more of the following dose reduction techniques: Automated exposure control, adjustment of the mA and/or kV according to patient size, or use of iterative reconstruction technique. PROCEDURE INTERPRETED AT [facility] DEPARTMENT OF RADIOLOGY Final Report Signed by: Dr Angel Dawson
[2016-09-17] MEDS: ENOXAPARIN 40 MG/0.4 ML SYRINGE SUBCUT SCH (10:23)
--- NOTE | 2016-09-17 15:31 | Discharge Summary ---
<Patricia Dinh - Last Filed: 09/17/16 15:29> Hospital Course - Hospital Course Hospital Course: Patient is a 71-year-old male with history of colon cancer status post partial colectomy May 2016 who was readmitted 09/03/2016 with recurrent abdominal wall abscess. He failed percutaneous drainage which was the initial plan of treatment with IV antibiotics. After the initial debridement, a repeat CT scan was performed on postop day #7 which revealed recurrent abscess requiring additional debridement. IV antibiotic regimen was changed to include ciprofloxacin and Cubicin. Patient responded well with decreased pain and his labs normalized. 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 Cardiology was consulted as patient does have a cardiac history. They added Ranexa and recommended high-dose statin but recommend delay in initiating considering the potential interactions with Cubicin. Repeat CT scan on postop day #6 after the second debridement did not reveal recurrent abscess. The patient will be discharged to continue with current sump drain with irrigation every 8 hours, daily dressing changes to the umbilical wound, and twice daily dressing changes to the right lower abdominal wound with continued [place] drain. Continue IV Cubicin and ciprofloxacin. Recommend follow-ups as below. Patient was discharged to specialty [facility] in good condition. Diagnosis - Discharge Diagnosis (1) Abdominal abscess Status: Acute (2) Adenocarcinoma of colon Status: Acute Specialty Discharge - Follow Up or Referrals Follow up with: Jose Lagos MD [Physician] - (Dr. Lagos will follow patient while at Specialty. ) Marc Lundberg MD [Physician] - (Lab work 10/20 @ 0900 Appt to follow 10/20 @ 1130) Jeremie Batres MD [Physician] - 10/07/16 8:40 am Discharge Plan - Discharge Data Disposition: Disch/Xfer to Intermediate Hos Condition at Discharge: Stable Discharge Diet: diabetic diet Activity: resume usual activities as tolerated, no lifting (>5-10lb) Hygiene: keep area(s) dry Wound / Dressing Care Instructions: 1. Right lower abdomen wound: Dressing changes twice dailyrepacked with saline moistened Kerlix or cough. Cover with ABD pads and foam tape. Careful not to remove Marycarmen drain when pulling packing. 2. Wet-to-dry dressing changes to umbilical wound. 3. Drain care: Irrigate through sump drain with 100 cc of saline every 8 hours - Discharge Medications New Ciprofloxacin Inj [Cipro Inj] 400 mg IV Q12H DAPTOmycin [Cubicin] 400 mg IV Q24H vial HYDROcodone/ACETAMIN 7.5-325 [Fulda 7.5-325] 1 tablet PO Q4H PRN #0 tablet PRN Reason: Pain Moderate (4-7) Metoprolol Succinate Xl [Toprol Xl] 50 mg PO BID tablet Sodium Hypochlorite 0.25% Irr [Dakins 1/2 Strength 0.25% Soln] 1 applic IRRIG CONTINUOUS applic Ranolazine [Ranexa] 500 mg PO BID tablet Continue Tolterodine LA [Detrol LA] 2 mg PO DAILY Donepezil [Aricept] 10 mg PO BEDTIME Pantoprazole Tab [Protonix Tab] 40 mg PO DAILY Losartan [Cozaar] 50 mg PO DAILY Tamsulosin [Flomax] 0.4 mg PO DAILY Clopidogrel [Plavix] 75 mg PO DAILY Saxagliptin HCl [Onglyza] 2.5 mg PO DAILY Menthol [Menthol Gel] 1 applic TOP TID PRN PRN Reason: MUSCLE ACHE/PAIN Hydrocortisone 1% Cream 1 applic TOP BID Albuterol Inhaler [Proventil Inhaler] 2 puff INH Q6H PRN #20 inhaler PRN Reason: Shortness Of Breath/Wheezing Docusate Sodium [Colace] 100 mg PO BID Acetaminophen 500 mg PO Q4-6H Gabapentin Cap/Tab [Neurontin Cap/Tab] 100 mg PO TID Insulin Aspart [NovoLOG FlexPen] 7 unit SUBCUT TID W/MEALS Insulin Detemir [Levemir FlexPen] 50 unit SUBCUT BEDTIME Diclofenac 1% Gel [Voltaren 1% Gel] 1 applic TOP QID Discontinued Alcohol Antiseptic Pads [Alcohol Pads] 1 each TP TID Metoprolol Tartrate 100 mg PO BEDTIME Zolpidem [Ambien] 5 mg PO BEDTIME PRN PRN Reason: Sleep - Follow Up or Referral Follow Up: Jose Lagos MD [Physician] - (Dr. Lagos will follow patient while at Specialty. ) Marc Lundberg MD [Physician] - (Lab work 10/20 @ 0900 Appt to follow 10/20 @ 1130) Jeremie Batres MD [Physician] - 10/07/16 8:40 am - Forms/Instructions Additional Discharge Instructions: Initiate statin therapy upon completion of Cubicin therapy per cardiology recommendations. Exam - Constitutional Vitals: Period Temp Pulse Resp BP Sys/Dixon Pulse Ox Last 24 Hr 97.1 F-99.0 F 61-64 18-20 144-162/60-70 96-100 General appearance: no acute distress - Head Head exam: Present: normocephalic, atraumatic - Respiratory Respiratory exam: Present: clear to auscultation bilaterally - Cardiovascular Cardiovascular exam: Present: regular rate and rhythm - GI/Abdominal GI/Abdominal exam: Present: normal bowel sounds, soft, other (Umbilical and right lower abdominal wound with clean dry dressings. Sump drain with purulent drainage in the tubing; site with minimal reactive erythema; nontender no drainage or malodor.). Absent: distended, firm, tenderness, rebound - Extremities Exam Extremities exam: Absent: calf tenderness, edema - Neurological Exam Neurological exam: Present: alert, oriented X3 - Psychiatric Psychiatric exam: Present: normal affect, normal mood - Skin Skin exam: Present: normal color, warm Discharge Results Procedures and tests throughout hospitalization: Pending Orders 09/03/16 10:26 Red Blood Cells Leuko Red Routine 09/11/16 Anaerobic Culture Routine 09/18/16 04:00 BMP w/ Mg [Basic Metabolic Panel w/Mg] IN AM CBC [Comp Blood Count Auto Diff] IN AM 09/19/16 04:00 BMP w/ Mg [Basic Metabolic Panel w/Mg] IN AM CBC [Comp Blood Count Auto Diff] IN AM 09/03/2016 abdominal abscess culture: Klebsiella pneumoniae, Staphylococcus epidermidis methicillin-resistant; Enterococcus faecalis 09/11/2016 abdominal abscess culture: Klebsiella pneumoniae, Enterobacter cloacae , enterococcus faecalis 09/11/2016 abdominal abscess culture: Klebsiella pneumoniae, Enterococcus faecalis Procedures: #1 Incision and drainage of complex abdominal wall abscess #2 incision and drainage of intra-abdominal abscess and abdominal wall abscess and placement of Marycarmen and sump drains Labs on day of discharge: Labs from last 24 hours 09/17/16 09/17/16 09/17/16 18:57 15:24 11:34 POC Glucose 114 H 117 H 134 H 09/17/16 07:24 POC Glucose 127 H - Imaging and Cardiology Procedure: CT Abdomen and Pelvis: image reviewed by me, report reviewed by me DS: Provider Date of admission: 09/03/16 09:29 Primary care physician: Joya Long MD Attending physician on admission: Rajesh Castillo MD Consults: 09/02/16 19:30 Consult to Physician [CONS] Routine Comment: Consulting Provider: Rajesh Castillo Person Notified: MD dale 09/05/16 14:03 Consult to Case Mgmt/Social Srvs [CONS] Routine Reason for Case Mgmt/Social Srvs: Discharge Planning 09/08/16 11:13 Consult to Pharmacy [CONS] Routine Reason for Pharmacy Consult: Dose/Manage Vancomycin 09/08/16 11:36 Consult to Pharmacy [CONS] Routine Reason for Pharmacy Consult: Dose/Manage Vancomycin 09/16/16 07:24 Consult to Physician [CONS] Routine Comment: Consulting Provider: Marc Ceballos Consult to Specialist Group: Cardiology When should Consulting Provider be notified: Now Person Notified: Neelima Date Notified: 09/16/16 Time Notified: 09:13 09/16/16 09:22 Consult to Case Mgmt/Social Srvs [CONS] Routine Reason for Case Mgmt/Social Srvs: LTAC Discharging clinician: Patricia Dinh PA-C <Jose Lagos - Last Filed: 09/18/16 07:18> Hospital Course - Hospital Course Hospital Course: I saw and examined this patient on the day of discharge. He has superficial thrombosis of his right cephalic vein but he is ready for discharge. He will follow-up with me at [facility]. Diagnosis - Discharge Diagnosis (1) Abdominal abscess Status: Acute
--- NOTE | 2016-09-17 20:41 | Ultrasound Report ---
Referring physician: Jose Lagos Exam: Right upper extremity venous ultrasound Date: September 17, 2016 Comparison: None Reason: Swelling in right arm Technique: Duplex scan of the bilateral lower extremity veins was performed using B-Mode/grayscale imaging, compression, Doppler spectral analysis and color flow. Ultrasound images were captured and stored. Findings: There is nonoccluding thrombus within the mid right cephalic vein and occluding thrombus within the distal right cephalic vein. No thrombus is seen within the right internal jugular vein, right subclavian vein, right axillary vein, right basilic vein or right brachial vein. Impression: There is thrombus within the right cephalic vein as described above. Findings were given to Jennifer Mann RN on September 17, 2016 at 8:35 PM. PROCEDURE INTERPRETED AT [facility] DEPARTMENT OF RADIOLOGY Final Report Signed by: Dr. Warren Wells
--- NOTE | 2016-09-17 20:42 | Ultrasound Report ---
Referring physician: Jose Lagos Exam: Right lower extremity venous ultrasound Date: September 17, 2016 Comparison: Bilateral lower extremity venous ultrasound February 24, 2013 Reason: Swelling in right leg Technique: Duplex scan of the right lower extremity was performed using B-Mode/grayscale imaging, compression, Doppler spectral analysis and color flow. Ultrasound images were captured and stored. Findings: There is no evidence of thrombus within the right common femoral vein, greater saphenous vein, superficial femoral vein or popliteal vein. Normal compression and augmentation are present throughout. Normal color flow and spectral analysis are observed. Impression: No evidence of deep venous thrombosis within the right lower extremity. PROCEDURE INTERPRETED AT [facility] DEPARTMENT OF RADIOLOGY Final Report Signed by: Dr. Warren Wells
[2016-09-17] MEDS: DONEPEZIL 10 MG TABLET PO SCH (21:51)
[2016-09-17] MEDS: INSULIN GLARGINE 100 UNIT/ML SUBCUT SCH (22:08)
[2016-09-18] MEDS: SODIUM CHLORIDE 0.9% 1,000 ML IV SCH (07:18)
--- NOTE | 2016-09-18 07:18 | Event Note ---
General Surgery Progress Note Chief complaint This patient is a 71-year-old man admitted with recurrent abscesses of the right lower quadrant abdomen and abdominal wall treated with multiple incision and drainage last one on 09/11/2016 with sump drain placement Interval history No events overnight. Patient was kept for a cephalic vein thrombus seen on the right upper arm ultrasound yesterday. There is no deep venous thrombosis on the study. Physical exam Afebrile. Normal vital signs Abdominal exam reveals drains in appropriate position. Wounds were repacked. The wounds appear clean. There is no erythema or significant swelling in the right arm Labs Responded well to blood transfusion White blood cell count is normal Imaging Superficial venous thrombosis of the right arm cephalic vein Assessment and plan Transfer to [facility] today Continue antibiotics and wound care
[2016-09-18] MEDS: CIPROFLOXACIN INJ 400 MG in PREMIX 1 EACH IV SCH (07:24)
[2016-09-18 07:28] VITALS: BP 135/53
[2016-09-18 07:30] LABS: Basophils % 0.2 % (0.0-0.8); Eosinophils # 0.1 10*3/uL (0.0-0.87); Eosinophils % 0.8 % (0.00-10.9); Hematocrit 26.8 VOL% (42.0-52.0); Hemoglobin 8.5 GM/DL (14.0-18.0); Immature Granulocytes % 0.5 %; Immature Granulocytes Absolute 0.03 #; Lymphocytes # 0.7 10*3/uL (1.4-4.0); Lymphocytes % 11.3 % (21.2-54.2); Mean Corpuscular HGB Conc 31.7 GM/DL (32-36); Mean Corpuscular Hemoglobin 27 PG (27-34); Mean Corpuscular Volume 86.5 FL (87-102); Mean Platelet Volume 10.2 FL (9.6-12.0); Monocytes # 0.7 10*3/uL (0.11-0.8); Monocytes % 10.4 % (1.7-12.7); Neutrophils # 5.1 10*3/uL (1.4-7.4); Neutrophils % 76.8 % (38.7-73.9); Platelet Count 171 T/CUMM (130-400); Red Cell Distribution Width 16.8 % (9.3-17.3); White Blood Count 6.6 T/CUMM (4-12)
[2016-09-18 08:06] LABS: Calcium 7.4 MG/DL (8.5-10.1); Magnesium 1.8 MG/DL (1.8-2.4); Osmolality,Calculated 285.7 MOS/KG (273-304); Potassium 3.9 MMOL/L (3.5-5.1)
[2016-09-18] MEDS: LOSARTAN 50 MG TABLET PO SCH (08:38)
[2016-09-18] MEDS: TAMSULOSIN 0.4 MG CAPSULE PO SCH (08:38)
[2016-09-18] MEDS: DOCUSATE SODIUM 100 MG CAPSULE PO SCH (08:38)
[2016-09-18] MEDS: GABAPENTIN 100 MG CAPSULE PO SCH (08:38)
[2016-09-18] MEDS: RANOLAZINE 500 MG TABLET PO SCH (08:38)
[2016-09-18] MEDS: PANTOPRAZOLE 40 MG TABLET PO SCH (08:38)
[2016-09-18] MEDS: TOLTERODINE LA 2 MG CAPSULE PO SCH (08:38)
[2016-09-18] MEDS: CLOPIDOGREL 75 MG TABLET PO SCH (08:38)
[2016-09-18] MEDS: sitaGLIPtin 25 MG TABLET PO SCH (08:38)
[2016-09-18] MEDS: SODIUM HYPOCHLORITE 0.25% IRRIG 473 ML BOTTLE IRRIG SCH (08:38)
[2016-09-18] MEDS: METOPROLOL SUCCINATE XL 50 MG TABLET PO SCH (08:38)
[2016-09-18] MEDS: INSULIN LISPRO 100 UNIT/ML SUBCUT SCH ×2 (08:39)
== END 2016-09-18 10:12 | DRG 579 ==
LOC: N.5E → SUATTDRO 17:08 → EDSTATUS 09-03 13:00
PROVIDERS: ADMIT Radiology Diagnostic Radiology; ATTEND Surgery

== ENCOUNTER 2017-10-29 22:19 | Inpatient (IN) ==
[2017-10-30] MEDS ORDERED: ACETAMINOPHEN 325 MG TABLET PO PRN (00:36)
[2017-10-30] MEDS ORDERED: ONDANSETRON 4 MG/2 ML VIAL IV PRN (00:36)
[2017-10-30] MEDS ORDERED: GLUCAGON 1 MG VIAL IM PRN (00:38)
[2017-10-30] MEDS ORDERED: DEXTROSE 50% 25 GM/50 ML VIAL IV PRN (00:38)
[2017-10-30] MEDS ORDERED: cloNIDine 0.1 MG TABLET PO PRN (01:40)
[2017-10-30 01:54] LABS: Basophils % 0.3 % (0.0-0.8); Eosinophils # 0.1 10*3/uL (0.0-0.87); Eosinophils % 0.8 % (0.00-10.9); Hematocrit 30.7 VOL% (42.0-52.0); Hemoglobin 9.3 GM/DL (14.0-18.0); Immature Granulocytes % 0.4 %; Immature Granulocytes Absolute 0.03 #; Lymphocytes # 0.6 10*3/uL (1.4-4.0); Lymphocytes % 7.6 % (21.2-54.2); Mean Corpuscular HGB Conc 30.3 GM/DL (32-36); Mean Corpuscular Hemoglobin 31 PG (27-34); Mean Platelet Volume 11.2 FL (9.6-12.0); Monocytes # 0.8 10*3/uL (0.11-0.8); Monocytes % 10.5 % (1.7-12.7); Neutrophils # 5.8 10*3/uL (1.4-7.4); Neutrophils % 80.4 % (38.7-73.9); Platelet Count 128 T/CUMM (130-400); Red Blood Count 3.01 MC/CUMM (3.8-5.5); Red Cell Distribution Width 15.1 % (9.3-17.3); White Blood Count 7.2 T/CUMM (4-12)
[2017-10-30 02:21] LABS: Albumin 3.2 G/DL (3.4-5.0); Bilirubin,Total 1.1 MG/DL (0.2-1.0); Calcium 8.4 MG/DL (8.5-10.1); Osmolality,Calculated 300.3 MOS/KG (273-304); Potassium 4.4 MMOL/L (3.5-5.1); Thyroid Stimulating Hormone 4.09 uIU/ml (0.358-3.74); Total Protein 6.9 G/DL (6.4-8.3); VLDL CHOLESTEROL 17.2 MG/DL
[2017-10-30] MEDS ORDERED: ALBUTEROL 2.5 MG/3 ML NEB RESP TX PRN (04:00)
[2017-10-30] MEDS ORDERED: PROPYLENE GLYCOL BOTH EYES PRN (04:00)
[2017-10-30] MEDS ORDERED: PEG BOTH EYES PRN (04:00)
[2017-10-30] MEDS ORDERED: hydrALAZINE 20 MG/1 ML VIAL IV ONE (05:30)
[2017-10-30] MEDS: TOLTERODINE LA 2 MG CAPSULE PO SCH (09:56)
[2017-10-30] MEDS: TAMSULOSIN 0.4 MG CAPSULE PO SCH (09:56)
[2017-10-30] MEDS: SERTRALINE 100 MG TABLET PO SCH (09:56)
[2017-10-30] MEDS: GABAPENTIN 100 MG CAPSULE PO SCH ×3 (09:56→20:42)
[2017-10-30] MEDS: CLOPIDOGREL 75 MG TABLET PO SCH (09:56)
[2017-10-30] MEDS: MULTIVITAMIN (BEROCCA) TABLET PO SCH (09:56)
[2017-10-30] MEDS: sitaGLIPtin 100 MG TABLET PO SCH (09:56)
[2017-10-30] MEDS: FUROSEMIDE 40 MG/4 ML VIAL IV SCH ×2 (09:56→16:10)
[2017-10-30] MEDS: LOSARTAN 50 MG TABLET PO SCH (09:56)
[2017-10-30] MEDS: PANTOPRAZOLE 40 MG TABLET PO SCH (09:56)
[2017-10-30] MEDS: INSULIN LISPRO 100 UNIT/ML SUBCUT SCH ×3 (09:56→17:10)
[2017-10-30] MEDS: INSULIN REGULAR 100 UNIT/ML SUBCUT SCH ×4 (09:57→20:43)
[2017-10-30] MEDS: ENOXAPARIN 40 MG/0.4 ML SYRINGE SUBCUT SCH (09:57)
[2017-10-30 11:46] LABS: CKMB % 2.1 %
[2017-10-30] MEDS ORDERED: ISOSORBIDE MONONITRATE 30 MG TABLET PO SCH (13:30)
[2017-10-30] MEDS: ASPIRIN EC 81 MG TABLET PO SCH (15:35)
[2017-10-30 17:38] LABS: CKMB % 2.3 %
[2017-10-30] MEDS: MONTELUKAST 10 MG TABLET PO SCH (20:42)
[2017-10-30] MEDS: METOPROLOL SUCCINATE XL 100 MG TABLET PO SCH (20:42)
[2017-10-30] MEDS: DONEPEZIL 10 MG TABLET PO SCH (20:42)
[2017-10-30] MEDS: INSULIN GLARGINE 100 UNIT/ML SUBCUT SCH (20:43)
[2017-10-31 04:12] LABS: Basophils % 0.3 % (0.0-0.8); Eosinophils # 0.1 10*3/uL (0.0-0.87); Eosinophils % 1.3 % (0.00-10.9); Hematocrit 29.3 VOL% (42.0-52.0); Hemoglobin 8.9 GM/DL (14.0-18.0); Immature Granulocytes % 0.7 %; Immature Granulocytes Absolute 0.05 #; Lymphocytes # 0.6 10*3/uL (1.4-4.0); Lymphocytes % 8.8 % (21.2-54.2); Mean Corpuscular HGB Conc 30.4 GM/DL (32-36); Mean Corpuscular Hemoglobin 31 PG (27-34); Mean Corpuscular Volume 100.7 FL (87-102); Mean Platelet Volume 11.1 FL (9.6-12.0); Monocytes # 0.8 10*3/uL (0.11-0.8); Monocytes % 11.5 % (1.7-12.7); Neutrophils # 5.2 10*3/uL (1.4-7.4); Neutrophils % 77.4 % (38.7-73.9); Platelet Count 114 T/CUMM (130-400); Red Blood Count 2.91 MC/CUMM (3.8-5.5); Red Cell Distribution Width 15.1 % (9.3-17.3); White Blood Count 6.7 T/CUMM (4-12)
[2017-10-31 04:35] LABS: Calcium 8.3 MG/DL (8.5-10.1); Osmolality,Calculated 293.4 MOS/KG (273-304); Potassium 4.4 MMOL/L (3.5-5.1)
[2017-10-31] MEDS: INSULIN LISPRO 100 UNIT/ML SUBCUT SCH ×3 (08:02→17:24)
[2017-10-31] MEDS: INSULIN REGULAR 100 UNIT/ML SUBCUT SCH ×4 (08:02→20:36)
[2017-10-31] MEDS: ENOXAPARIN 40 MG/0.4 ML SYRINGE SUBCUT SCH (10:22)
[2017-10-31] MEDS: FUROSEMIDE 40 MG/4 ML VIAL IV SCH ×2 (10:22→15:11)
[2017-10-31] MEDS: PANTOPRAZOLE 40 MG TABLET PO SCH (10:23)
[2017-10-31] MEDS: GABAPENTIN 100 MG CAPSULE PO SCH ×3 (10:23→20:59)
[2017-10-31] MEDS: ISOSORBIDE MONONITRATE 60 MG TABLET PO SCH (10:23)
[2017-10-31] MEDS: LOSARTAN 50 MG TABLET PO SCH (10:23)
[2017-10-31] MEDS: TAMSULOSIN 0.4 MG CAPSULE PO SCH (10:23)
[2017-10-31] MEDS: CLOPIDOGREL 75 MG TABLET PO SCH (10:23)
[2017-10-31] MEDS: TOLTERODINE LA 2 MG CAPSULE PO SCH (10:23)
[2017-10-31] MEDS: MULTIVITAMIN (BEROCCA) TABLET PO SCH (10:23)
[2017-10-31] MEDS: SERTRALINE 100 MG TABLET PO SCH (10:23)
[2017-10-31] MEDS: ASPIRIN EC 81 MG TABLET PO SCH (10:23)
[2017-10-31] MEDS: sitaGLIPtin 100 MG TABLET PO SCH (10:24)
[2017-10-31] MEDS: INSULIN GLARGINE 100 UNIT/ML SUBCUT SCH (20:37)
[2017-10-31] MEDS: METOPROLOL SUCCINATE XL 100 MG TABLET PO SCH (20:59)
[2017-10-31] MEDS: MONTELUKAST 10 MG TABLET PO SCH (20:59)
[2017-10-31] MEDS: DONEPEZIL 10 MG TABLET PO SCH (20:59)
[2017-11-01 04:34] LABS: Basophils % 0.4 % (0.0-0.8); Eosinophils # 0.1 10*3/uL (0.0-0.87); Hematocrit 27.9 VOL% (42.0-52.0); Hemoglobin 8.7 GM/DL (14.0-18.0); Immature Granulocytes % 0.4 %; Immature Granulocytes Absolute 0.02 #; Lymphocytes # 0.8 10*3/uL (1.4-4.0); Lymphocytes % 13.7 % (21.2-54.2); Mean Corpuscular HGB Conc 31.2 GM/DL (32-36); Mean Corpuscular Hemoglobin 31 PG (27-34); Mean Corpuscular Volume 100.4 FL (87-102); Mean Platelet Volume 11.8 FL (9.6-12.0); Monocytes # 0.8 10*3/uL (0.11-0.8); Monocytes % 13.9 % (1.7-12.7); Neutrophils # 3.9 10*3/uL (1.4-7.4); Neutrophils % 69.6 % (38.7-73.9); Platelet Count 105 T/CUMM (130-400); Red Blood Count 2.78 MC/CUMM (3.8-5.5); Red Cell Distribution Width 15.1 % (9.3-17.3); White Blood Count 5.5 T/CUMM (4-12)
[2017-11-01 05:08] LABS: Calcium 7.9 MG/DL (8.5-10.1); Osmolality,Calculated 288.8 MOS/KG (273-304)
[2017-11-01] MEDS: INSULIN REGULAR 100 UNIT/ML SUBCUT SCH ×4 (07:53→21:09)
[2017-11-01] MEDS: FUROSEMIDE 40 MG/4 ML VIAL IV SCH ×2 (10:52→16:41)
[2017-11-01] MEDS: INSULIN LISPRO 100 UNIT/ML SUBCUT SCH ×3 (10:53→16:31)
[2017-11-01] MEDS: ASPIRIN EC 81 MG TABLET PO SCH (10:56)
[2017-11-01] MEDS: TAMSULOSIN 0.4 MG CAPSULE PO SCH (10:57)
[2017-11-01] MEDS: SERTRALINE 100 MG TABLET PO SCH (10:57)
[2017-11-01] MEDS: GABAPENTIN 100 MG CAPSULE PO SCH ×3 (10:57→21:10)
[2017-11-01] MEDS: sitaGLIPtin 100 MG TABLET PO SCH (10:57)
[2017-11-01] MEDS: LOSARTAN 50 MG TABLET PO SCH (10:57)
[2017-11-01] MEDS: TOLTERODINE LA 2 MG CAPSULE PO SCH (11:00)
[2017-11-01] MEDS: MULTIVITAMIN (BEROCCA) TABLET PO SCH (11:00)
[2017-11-01] MEDS: ISOSORBIDE MONONITRATE 60 MG TABLET PO SCH (11:00)
[2017-11-01] MEDS: CLOPIDOGREL 75 MG TABLET PO SCH (11:00)
[2017-11-01] MEDS: PANTOPRAZOLE 40 MG TABLET PO SCH (11:01)
[2017-11-01] MEDS ORDERED: metOLazone 5 MG TABLET PO ONE (11:14)
[2017-11-01] MEDS: ENOXAPARIN 40 MG/0.4 ML SYRINGE SUBCUT SCH (11:30)
[2017-11-01] MEDS: MONTELUKAST 10 MG TABLET PO SCH (21:09)
[2017-11-01] MEDS: DONEPEZIL 10 MG TABLET PO SCH (21:09)
[2017-11-01] MEDS: METOPROLOL SUCCINATE XL 100 MG TABLET PO SCH (21:09)
[2017-11-01] MEDS: INSULIN GLARGINE 100 UNIT/ML SUBCUT SCH (21:10)
[2017-11-02 05:46] LABS: Basophils % 0.2 % (0.0-0.8); Eosinophils # 0.1 10*3/uL (0.0-0.87); Eosinophils % 1.3 % (0.00-10.9); Hematocrit 27.5 VOL% (42.0-52.0); Hemoglobin 8.6 GM/DL (14.0-18.0); Immature Granulocytes % 0.7 %; Immature Granulocytes Absolute 0.03 #; Lymphocytes # 0.6 10*3/uL (1.4-4.0); Lymphocytes % 13.7 % (21.2-54.2); Mean Corpuscular HGB Conc 31.3 GM/DL (32-36); Mean Corpuscular Hemoglobin 31 PG (27-34); Mean Corpuscular Volume 98.2 FL (87-102); Mean Platelet Volume 11.4 FL (9.6-12.0); Monocytes # 0.7 10*3/uL (0.11-0.8); Monocytes % 14.1 % (1.7-12.7); Neutrophils # 3.2 10*3/uL (1.4-7.4); Platelet Count 101 T/CUMM (130-400); White Blood Count 4.6 T/CUMM (4-12)
[2017-11-02 06:04] LABS: Calcium 7.5 MG/DL (8.5-10.1); Osmolality,Calculated 288.1 MOS/KG (273-304); Potassium 4.2 MMOL/L (3.5-5.1)
[2017-11-02] MEDS: INSULIN REGULAR 100 UNIT/ML SUBCUT SCH ×4 (06:44→21:13)
[2017-11-02] MEDS: INSULIN LISPRO 100 UNIT/ML SUBCUT SCH ×3 (08:00→17:11)
[2017-11-02] MEDS: FUROSEMIDE 40 MG/4 ML VIAL IV SCH (09:55)
[2017-11-02] MEDS: ASPIRIN EC 81 MG TABLET PO SCH (09:59)
[2017-11-02] MEDS: MULTIVITAMIN (BEROCCA) TABLET PO SCH (09:59)
[2017-11-02] MEDS: TAMSULOSIN 0.4 MG CAPSULE PO SCH (10:00)
[2017-11-02] MEDS: TOLTERODINE LA 2 MG CAPSULE PO SCH (10:00)
[2017-11-02] MEDS: ISOSORBIDE MONONITRATE 60 MG TABLET PO SCH (10:00)
[2017-11-02] MEDS: LOSARTAN 50 MG TABLET PO SCH (10:00)
[2017-11-02] MEDS: sitaGLIPtin 100 MG TABLET PO SCH (10:00)
[2017-11-02] MEDS: SERTRALINE 100 MG TABLET PO SCH (10:01)
[2017-11-02] MEDS: CLOPIDOGREL 75 MG TABLET PO SCH (10:01)
[2017-11-02] MEDS: GABAPENTIN 100 MG CAPSULE PO SCH ×3 (10:01→21:12)
[2017-11-02] MEDS: PANTOPRAZOLE 40 MG TABLET PO SCH (10:01)
[2017-11-02] MEDS: ENOXAPARIN 40 MG/0.4 ML SYRINGE SUBCUT SCH (10:01)
[2017-11-02] MEDS: hydrALAZINE 25 MG TABLET PO SCH ×2 (17:12→21:12)
[2017-11-02] MEDS: FUROSEMIDE 40 MG TABLET PO SCH (17:12)
[2017-11-02] MEDS: DONEPEZIL 10 MG TABLET PO SCH (21:12)
[2017-11-02] MEDS: MONTELUKAST 10 MG TABLET PO SCH (21:12)
[2017-11-02] MEDS: INSULIN GLARGINE 100 UNIT/ML SUBCUT SCH (21:13)
[2017-11-02] MEDS: METOPROLOL SUCCINATE XL 100 MG TABLET PO SCH (21:13)
[2017-11-03 07:16] LABS: Basophils % 0.4 % (0.0-0.8); Eosinophils # 0.1 10*3/uL (0.0-0.87); Eosinophils % 1.3 % (0.00-10.9); Hemoglobin 9.1 GM/DL (14.0-18.0); Immature Granulocytes % 0.2 %; Immature Granulocytes Absolute 0.01 #; Lymphocytes # 0.6 10*3/uL (1.4-4.0); Mean Corpuscular HGB Conc 30.3 GM/DL (32-36); Mean Corpuscular Hemoglobin 30 PG (27-34); Mean Corpuscular Volume 99.7 FL (87-102); Mean Platelet Volume 11.6 FL (9.6-12.0); Monocytes # 0.6 10*3/uL (0.11-0.8); Monocytes % 13.6 % (1.7-12.7); Neutrophils # 3.4 10*3/uL (1.4-7.4); Neutrophils % 71.5 % (38.7-73.9); Platelet Count 114 T/CUMM (130-400); Red Blood Count 3.01 MC/CUMM (3.8-5.5); Red Cell Distribution Width 15.2 % (9.3-17.3); White Blood Count 4.7 T/CUMM (4-12)
[2017-11-03] MEDS: INSULIN REGULAR 100 UNIT/ML SUBCUT SCH ×4 (07:30→21:32)
[2017-11-03 07:58] LABS: Albumin 2.8 G/DL (3.4-5.0); Bilirubin,Direct 0.13 MG/DL (0.0-0.20); Bilirubin,Indirect 0.6 MG/DL (0.0-1.0); Bilirubin,Total 0.7 MG/DL (0.2-1.0); Calcium 7.3 MG/DL (8.5-10.1); Osmolality,Calculated 293.8 MOS/KG (273-304); Potassium 4.3 MMOL/L (3.5-5.1)
[2017-11-03] MEDS: INSULIN LISPRO 100 UNIT/ML SUBCUT SCH ×3 (08:00→16:51)
[2017-11-03] MEDS: FUROSEMIDE 40 MG TABLET PO SCH ×2 (09:32→16:46)
[2017-11-03] MEDS: ASPIRIN EC 81 MG TABLET PO SCH (09:32)
[2017-11-03] MEDS: MULTIVITAMIN (BEROCCA) TABLET PO SCH (09:32)
[2017-11-03] MEDS: TOLTERODINE LA 2 MG CAPSULE PO SCH (09:33)
[2017-11-03] MEDS: ISOSORBIDE MONONITRATE 60 MG TABLET PO SCH (09:33)
[2017-11-03] MEDS: sitaGLIPtin 100 MG TABLET PO SCH (09:33)
[2017-11-03] MEDS: TAMSULOSIN 0.4 MG CAPSULE PO SCH (09:33)
[2017-11-03] MEDS: CLOPIDOGREL 75 MG TABLET PO SCH (09:34)
[2017-11-03] MEDS: PANTOPRAZOLE 40 MG TABLET PO SCH (09:34)
[2017-11-03] MEDS: SERTRALINE 100 MG TABLET PO SCH (09:34)
[2017-11-03] MEDS: GABAPENTIN 100 MG CAPSULE PO SCH ×3 (09:34→21:32)
[2017-11-03] MEDS: hydrALAZINE 25 MG TABLET PO SCH ×3 (11:59→21:32)
[2017-11-03] MEDS ORDERED: ATORVASTATIN 10 MG TABLET PO SCH (21:00)
[2017-11-03] MEDS: INSULIN GLARGINE 100 UNIT/ML SUBCUT SCH (21:32)
[2017-11-03] MEDS: MONTELUKAST 10 MG TABLET PO SCH (21:32)
[2017-11-03] MEDS: DONEPEZIL 10 MG TABLET PO SCH (21:32)
[2017-11-03] MEDS: METOPROLOL SUCCINATE XL 100 MG TABLET PO SCH (21:32)
[2017-11-04 05:55] LABS: Basophils % 0.7 % (0.0-0.8); Eosinophils # 0.1 10*3/uL (0.0-0.87); Eosinophils % 1.5 % (0.00-10.9); Hemoglobin 8.7 GM/DL (14.0-18.0); Immature Granulocytes % 0.7 %; Immature Granulocytes Absolute 0.03 #; Lymphocytes # 0.7 10*3/uL (1.4-4.0); Lymphocytes % 14.2 % (21.2-54.2); Mean Corpuscular HGB Conc 31.1 GM/DL (32-36); Mean Corpuscular Hemoglobin 31 PG (27-34); Mean Platelet Volume 11.5 FL (9.6-12.0); Monocytes # 0.7 10*3/uL (0.11-0.8); Monocytes % 15.1 % (1.7-12.7); Neutrophils # 3.1 10*3/uL (1.4-7.4); Neutrophils % 67.8 % (38.7-73.9); Platelet Count 105 T/CUMM (130-400); Red Cell Distribution Width 15.1 % (9.3-17.3); White Blood Count 4.6 T/CUMM (4-12)
[2017-11-04 06:08] LABS: Calcium 7.3 MG/DL (8.5-10.1); Potassium 4.6 MMOL/L (3.5-5.1)
[2017-11-04] MEDS: INSULIN REGULAR 100 UNIT/ML SUBCUT SCH ×2 (07:57→12:03)
[2017-11-04] MEDS: TOLTERODINE LA 2 MG CAPSULE PO SCH (09:52)
[2017-11-04] MEDS: ASPIRIN EC 81 MG TABLET PO SCH (09:52)
[2017-11-04] MEDS: FUROSEMIDE 40 MG TABLET PO SCH (09:52)
[2017-11-04] MEDS: MULTIVITAMIN (BEROCCA) TABLET PO SCH (09:52)
[2017-11-04] MEDS: ISOSORBIDE MONONITRATE 60 MG TABLET PO SCH (09:52)
[2017-11-04] MEDS: hydrALAZINE 25 MG TABLET PO SCH (09:52)
[2017-11-04] MEDS: PANTOPRAZOLE 40 MG TABLET PO SCH (09:53)
[2017-11-04] MEDS: CLOPIDOGREL 75 MG TABLET PO SCH (09:53)
[2017-11-04] MEDS: GABAPENTIN 100 MG CAPSULE PO SCH (09:53)
[2017-11-04] MEDS: TAMSULOSIN 0.4 MG CAPSULE PO SCH (09:53)
[2017-11-04] MEDS: SERTRALINE 100 MG TABLET PO SCH (09:53)
[2017-11-04] MEDS: INSULIN LISPRO 100 UNIT/ML SUBCUT SCH ×2 (09:54→12:01)
[2017-11-04 10:55] VITALS: BP 158/63
== END 2017-11-04 15:05 | disposition home health service (06) | DRG 292 ==
LOC: N.3E 23:57 → SUATTDRO 23:57
PROVIDERS: ADMIT Internal Medicine; ATTEND Internal Medicine

== ENCOUNTER 2017-11-28 16:08 | Inpatient (IN) ==
[2017-11-29 05:52] LABS: Basophils % 0.2 % (0.0-0.8); Eosinophils % 0.2 % (0.00-10.9); Hematocrit 29.8 VOL% (42.0-52.0); Hemoglobin 8.9 GM/DL (14.0-18.0); Immature Granulocytes % 0.4 %; Immature Granulocytes Absolute 0.03 #; Lymphocytes # 0.7 10*3/uL (1.4-4.0); Lymphocytes % 8.1 % (21.2-54.2); Mean Corpuscular HGB Conc 29.9 GM/DL (32-36); Mean Corpuscular Hemoglobin 31 PG (27-34); Mean Corpuscular Volume 103.5 FL (87-102); Mean Platelet Volume 11.6 FL (9.6-12.0); Monocytes # 0.9 10*3/uL (0.11-0.8); Monocytes % 10.3 % (1.7-12.7); Neutrophils # 6.7 10*3/uL (1.4-7.4); Neutrophils % 80.8 % (38.7-73.9); Platelet Count 104 T/CUMM (130-400); Red Blood Count 2.88 MC/CUMM (3.8-5.5); Red Cell Distribution Width 15.1 % (9.3-17.3); White Blood Count 8.3 T/CUMM (4-12)
[2017-11-29 06:20] LABS: Albumin 2.8 G/DL (3.4-5.0); Bilirubin,Total 0.6 MG/DL (0.2-1.0); Calcium 7.5 MG/DL (8.5-10.1)
[2017-11-29 06:21] LABS: Osmolality,Calculated 303.7 MOS/KG (273-304); Potassium 4.8 MMOL/L (3.5-5.1)
[2017-11-29 23:36] LABS: Apearance,Urine Slightly Hazy (Clear); Bacteria,Urine Occasional /HPF (Few); Bilirubin,Urine Negative (Negative); Blood, Urine Negative (Negative); Glucose,Urine (UA) Negative (Negative); Hyaline Casts,Urine 13 /LPF (0-3); Ketones,Urine Negative (Negative); Mucus,Urine Occasional /LPF (Occasional); Nitrite,Urine Negative (Negative); Protein,Urine 30 MG/DL; RBC,Urine 2 /HPF (0-4); Squamous Epithelial Cell,Urine Occasional /HPF (0-10); Urine Color Yellow (Yellow); Urine Specific Gravity 1.014 (1.001-1.035); Urine Urobilinogen < 2.0 EU/DL (0.2-1.0); WBC,Urine 42 /HPF (0-6)
[2017-11-30 06:34] LABS: Basophils % 0.4 % (0.0-0.8); Eosinophils % 0.2 % (0.00-10.9); Hematocrit 29.1 VOL% (42.0-52.0); Hemoglobin 8.4 GM/DL (14.0-18.0); Immature Granulocytes % 1.5 %; Immature Granulocytes Absolute 0.08 #; Lymphocytes # 0.6 10*3/uL (1.4-4.0); Lymphocytes % 11.3 % (21.2-54.2); Mean Corpuscular HGB Conc 28.9 GM/DL (32-36); Mean Corpuscular Hemoglobin 30 PG (27-34); Mean Corpuscular Volume 103.9 FL (87-102); Mean Platelet Volume 11.7 FL (9.6-12.0); Monocytes # 0.6 10*3/uL (0.11-0.8); Monocytes % 11.5 % (1.7-12.7); Neutrophils # 3.9 10*3/uL (1.4-7.4); Neutrophils % 75.1 % (38.7-73.9); Platelet Count 83 T/CUMM (130-400); White Blood Count 5.2 T/CUMM (4-12)
[2017-11-30 07:06] LABS: Band Neutrophils 10 % (0-10); Lymphocytes 15 % (20-55); Nucleated Red Blood Cells 1 (0-5); Platelet Estimate Adequate; Segmented Neutrophils 71 % (50-85); Total Cells Counted 100
[2017-11-30 07:07] LABS: Anisocytosis 1+; Macrocytosis 1+
[2017-11-30 07:13] LABS: Calcium 7.5 MG/DL (8.5-10.1); Osmolality,Calculated 300.5 MOS/KG (273-304); Potassium 5.2 MMOL/L (3.5-5.1)
[2017-11-30 07:25] LABS: Folate 9.3 NG/ML (5.4-24.0); Vitamin B12 337 PG/ML (211-911)
[2017-11-30 07:27] LABS: Ferritin 75.4 ng/ml (26-388)
[2017-11-30 09:56] LABS: Hemoglobin A1 (Alkaline) 97.1 % (96.5-98.5); Hemoglobin A2 (Alkaline) 2.9 % (1.5-3.5)
[2017-11-30 11:17] LABS: Sedimentation Rate-Westergren 60 MM/HR (0-20)
[2017-12-01 01:38] LABS: Apearance,Urine Slightly Hazy (Clear); Bacteria,Urine Occasional /HPF (Few); Bilirubin,Urine Negative (Negative); Blood, Urine Negative (Negative); Glucose,Urine (UA) Negative (Negative); Ketones,Urine Negative (Negative); Nitrite,Urine Negative (Negative); Protein,Urine 30 MG/DL; RBC,Urine 2 /HPF (0-4); Squamous Epithelial Cell,Urine Occasional /HPF (0-10); Urine Color Yellow (Yellow); Urine Specific Gravity 1.013 (1.001-1.035); Urine Urobilinogen < 2.0 EU/DL (0.2-1.0); WBC,Urine 6 /HPF (0-6)
[2017-12-01 07:09] LABS: Basophils % 0.2 % (0.0-0.8); Eosinophils % 0.9 % (0.00-10.9); Hematocrit 27.6 VOL% (42.0-52.0); Hemoglobin 8.4 GM/DL (14.0-18.0); Immature Granulocytes % 0.6 %; Immature Granulocytes Absolute 0.03 #; Lymphocytes # 0.5 10*3/uL (1.4-4.0); Lymphocytes % 11.4 % (21.2-54.2); Mean Corpuscular HGB Conc 30.4 GM/DL (32-36); Mean Corpuscular Hemoglobin 31 PG (27-34); Mean Corpuscular Volume 101.1 FL (87-102); Mean Platelet Volume 11.7 FL (9.6-12.0); Monocytes # 0.7 10*3/uL (0.11-0.8); Neutrophils # 3.4 10*3/uL (1.4-7.4); Neutrophils % 72.9 % (38.7-73.9); Platelet Count 107 T/CUMM (130-400); Red Blood Count 2.73 MC/CUMM (3.8-5.5); White Blood Count 4.6 T/CUMM (4-12)
[2017-12-01 07:24] LABS: Calcium 8.1 MG/DL (8.5-10.1); Osmolality,Calculated 307.1 MOS/KG (273-304); Potassium 4.9 MMOL/L (3.5-5.1)
[2017-12-02 07:46] LABS: Basophils % 0.4 % (0.0-0.8); Eosinophils % 0.9 % (0.00-10.9); Hematocrit 27.5 VOL% (42.0-52.0); Hemoglobin 8.4 GM/DL (14.0-18.0); Immature Granulocytes % 0.7 %; Immature Granulocytes Absolute 0.03 #; Lymphocytes # 0.6 10*3/uL (1.4-4.0); Lymphocytes % 12.9 % (21.2-54.2); Mean Corpuscular HGB Conc 30.5 GM/DL (32-36); Mean Corpuscular Hemoglobin 31 PG (27-34); Mean Corpuscular Volume 101.1 FL (87-102); Mean Platelet Volume 11.3 FL (9.6-12.0); Monocytes # 0.7 10*3/uL (0.11-0.8); Neutrophils # 3.2 10*3/uL (1.4-7.4); Neutrophils % 70.1 % (38.7-73.9); Platelet Count 107 T/CUMM (130-400); Red Blood Count 2.72 MC/CUMM (3.8-5.5); White Blood Count 4.6 T/CUMM (4-12)
[2017-12-02 08:02] LABS: Calcium 8.3 MG/DL (8.5-10.1); Osmolality,Calculated 309.7 MOS/KG (273-304); Potassium 4.6 MMOL/L (3.5-5.1)
[2017-12-03 06:40] LABS: Basophils % 0.5 % (0.0-0.8); Eosinophils % 0.9 % (0.00-10.9); Hematocrit 28.1 VOL% (42.0-52.0); Hemoglobin 8.7 GM/DL (14.0-18.0); Immature Granulocytes % 0.7 %; Immature Granulocytes Absolute 0.03 #; Lymphocytes # 0.5 10*3/uL (1.4-4.0); Mean Corpuscular Hemoglobin 31 PG (27-34); Mean Platelet Volume 11.1 FL (9.6-12.0); Monocytes # 0.6 10*3/uL (0.11-0.8); Neutrophils # 3.1 10*3/uL (1.4-7.4); Neutrophils % 71.9 % (38.7-73.9); Platelet Count 111 T/CUMM (130-400); Red Blood Count 2.81 MC/CUMM (3.8-5.5); White Blood Count 4.3 T/CUMM (4-12)
[2017-12-03 06:56] LABS: Osmolality,Calculated 311.6 MOS/KG (273-304); Potassium 4.8 MMOL/L (3.5-5.1)
[2017-12-03 08:44] VITALS: BP 145/74
== END 2017-12-03 12:00 | disposition home health service (06) | DRG 291 ==
LOC: N.5E 18:42 → SUATTDRO 18:42
PROVIDERS: ADMIT Internal Medicine; ATTEND Hospitalist

== ENCOUNTER 2018-03-09 08:20 | Inpatient (IN) ==
[2018-03-09] MEDS ORDERED: ONDANSETRON 4 MG/2 ML VIAL IV PRN (11:45)
[2018-03-09] MEDS ORDERED: PROMETHAZINE 25 MG/1 ML VIAL IM PRN (11:45)
[2018-03-09] MEDS ORDERED: ACETAMINOPHEN 325 MG TABLET PO PRN (11:45)
[2018-03-09 13:30] LABS: Basophils % 0.2 % (0.0-0.8); Eosinophils % 0.1 % (0.00-10.9); Hematocrit 34.8 VOL% (42.0-52.0); Hemoglobin 10.3 GM/DL (14.0-18.0); Immature Granulocytes % 0.4 %; Immature Granulocytes Absolute 0.05 #; Lymphocytes # 0.4 10*3/uL (1.4-4.0); Lymphocytes % 3.6 % (21.2-54.2); Mean Corpuscular HGB Conc 29.6 GM/DL (32-36); Mean Corpuscular Hemoglobin 30 PG (27-34); Mean Corpuscular Volume 102.7 FL (87-102); Mean Platelet Volume 10.7 FL (9.6-12.0); Monocytes # 0.8 10*3/uL (0.11-0.8); Monocytes % 6.7 % (1.7-12.7); Neutrophils # 10.1 10*3/uL (1.4-7.4); Platelet Count 165 T/CUMM (130-400); Red Blood Count 3.39 MC/CUMM (3.8-5.5); Red Cell Distribution Width 15.6 % (9.3-17.3); White Blood Count 11.4 T/CUMM (4-12)
[2018-03-09] MEDS: ENOXAPARIN 30 MG/0.3 ML SYRINGE SUBCUT SCH (13:42)
[2018-03-09] MEDS: DEXTROSE 5% NACL 0.45% 1,000 ML IV SCH (13:46)
[2018-03-09 14:21] LABS: Albumin 2.9 G/DL (3.4-5.0); Bilirubin,Total 0.7 MG/DL (0.2-1.0); Osmolality,Calculated 292.3 MOS/KG (273-304); Thyroid Stimulating Hormone 2.32 uIU/ml (0.358-3.74); Total Protein 7.1 G/DL (6.4-8.3)
[2018-03-09 14:57] LABS: Folate 10.2 NG/ML (5.4-24.0)
[2018-03-09] MEDS: FUROSEMIDE 40 MG/4 ML VIAL IV SCH (17:06)
[2018-03-09] MEDS: cefTRIAXone 500 MG in SYRINGE 1 EACH IV SCH (17:08)
[2018-03-09] MEDS: AZITHROMYCIN INJ 500 MG in SODIUM CHLORIDE 0.9% 250 ML IV SCH (17:15)
[2018-03-09 18:50] LABS: Band Neutrophils 8 % (0-10); Lymphocytes 2 % (20-55); Platelet Estimate Normal; Segmented Neutrophils 89 % (50-85); Total Cells Counted 100
[2018-03-10] MEDS: DEXTROSE 5% NACL 0.45% 1,000 ML IV SCH ×2 (06:15→10:09)
[2018-03-10 07:09] LABS: Risk Ratio 1.58; VLDL CHOLESTEROL 12.4 MG/DL
[2018-03-10] MEDS ORDERED: FUROSEMIDE 40 MG/4 ML VIAL IV ONE (09:32)
[2018-03-10] MEDS: PANTOPRAZOLE 40 MG TABLET PO SCH (09:46)
[2018-03-10] MEDS: FUROSEMIDE 40 MG/4 ML VIAL IV SCH ×2 (09:47→16:48)
[2018-03-10] MEDS: ENOXAPARIN 30 MG/0.3 ML SYRINGE SUBCUT SCH (12:21)
[2018-03-10 12:40] LABS: Apearance,Urine CLEAR (Clear); Bacteria,Urine Many /HPF (Few); Bilirubin,Urine Negative (Negative); Blood, Urine Negative (Negative); Glucose,Urine (UA) Negative (Negative); Ketones,Urine Negative (Negative); Mucus,Urine Occasional /LPF (Occasional); Nitrite,Urine Negative (Negative); Protein,Urine Negative; RBC,Urine <1 /HPF (0-4); Urine Color Yellow (Yellow); Urine Specific Gravity 1.008 (1.001-1.035); Urine Urobilinogen < 2.0 EU/DL (0.2-1.0); WBC,Urine 3 /HPF (0-6)
[2018-03-10] MEDS: INSULIN REGULAR 100 UNIT/ML SUBCUT SCH ×2 (16:48→22:03)
[2018-03-10] MEDS: cefTRIAXone 500 MG in SYRINGE 1 EACH IV SCH (16:48)
[2018-03-10] MEDS: AZITHROMYCIN INJ 500 MG in SODIUM CHLORIDE 0.9% 250 ML IV SCH (16:49)
[2018-03-10] MEDS ORDERED: INSULIN GLARGINE 100 UNIT/ML SUBCUT SCH (21:00)
[2018-03-11 05:09] LABS: Basophils % 0.2 % (0.0-0.8); Eosinophils % 0.4 % (0.00-10.9); Hematocrit 28.1 VOL% (42.0-52.0); Hemoglobin 8.1 GM/DL (14.0-18.0); Immature Granulocytes % 0.4 %; Immature Granulocytes Absolute 0.02 #; Lymphocytes # 0.5 10*3/uL (1.4-4.0); Lymphocytes % 10.9 % (21.2-54.2); Mean Corpuscular HGB Conc 28.8 GM/DL (32-36); Mean Corpuscular Hemoglobin 29 PG (27-34); Mean Corpuscular Volume 101.8 FL (87-102); Mean Platelet Volume 11.3 FL (9.6-12.0); Monocytes # 0.6 10*3/uL (0.11-0.8); Monocytes % 11.7 % (1.7-12.7); Neutrophils # 3.8 10*3/uL (1.4-7.4); Neutrophils % 76.4 % (38.7-73.9); Platelet Count 108 T/CUMM (130-400); Red Blood Count 2.76 MC/CUMM (3.8-5.5); Red Cell Distribution Width 15.1 % (9.3-17.3); White Blood Count 4.9 T/CUMM (4-12)
[2018-03-11 05:31] LABS: Calcium 7.6 MG/DL (8.5-10.1); Osmolality,Calculated 301.7 MOS/KG (273-304); Potassium 4.6 MMOL/L (3.5-5.1)
[2018-03-11 06:34] LABS: Hypochromasia 1+; Ovalocytes Slight; Platelet Estimate Decreased
[2018-03-11] MEDS ORDERED: SERTRALINE 100 MG TABLET PO SCH (09:00)
[2018-03-11] MEDS ORDERED: TAMSULOSIN 0.4 MG CAPSULE PO SCH (09:00)
[2018-03-11] MEDS ORDERED: ASPIRIN EC 81 MG TABLET PO SCH (09:00)
[2018-03-11] MEDS ORDERED: FERROUS SULFATE 325 MG TABLET PO SCH (09:00)
[2018-03-11] MEDS ORDERED: PANTOPRAZOLE 40 MG TABLET PO SCH (09:00)
[2018-03-11] MEDS ORDERED: CLOPIDOGREL 75 MG TABLET PO SCH (09:00)
[2018-03-11] MEDS: FUROSEMIDE 40 MG/4 ML VIAL IV SCH (09:22)
[2018-03-11] MEDS: INSULIN LISPRO 100 UNIT/ML SUBCUT SCH ×2 (09:22→13:55)
[2018-03-11] MEDS: PANTOPRAZOLE 40 MG TABLET PO SCH (09:23)
[2018-03-11] MEDS: GABAPENTIN 100 MG CAPSULE PO SCH ×2 (09:23→14:00)
[2018-03-11] MEDS: CALCIUM ACETATE 667 MG CAPSULE PO SCH ×2 (09:23→13:52)
[2018-03-11] MEDS: hydrALAZINE 25 MG TABLET PO SCH ×2 (09:23→14:00)
[2018-03-11] MEDS: INSULIN REGULAR 100 UNIT/ML SUBCUT SCH ×2 (09:28→13:55)
[2018-03-11 12:25] VITALS: BP 161/71
[2018-03-11] MEDS ORDERED: MONTELUKAST 10 MG TABLET PO SCH (21:00)
[2018-03-11] MEDS ORDERED: METOPROLOL SUCCINATE XL 100 MG TABLET PO SCH (21:00)
[2018-03-11] MEDS ORDERED: ATORVASTATIN 10 MG TABLET PO SCH (21:00)
== END 2018-03-11 15:31 | disposition home health service (06) | DRG 291 ==
LOC: INTOOBSV 10:05 → N.5E 10:05 → SUATTDRO 10:05
PROVIDERS: ADMIT Internal Medicine; ATTEND Family Medicine